=== PATIENT | male | born 1960 | race Caucasian/White ===

== ENCOUNTER 2020-01-14 08:48 | Outpatient (CLI) | payer MEDICARE, MEDICAID, SELFPAY ==
--- NOTE | ~2020-01-14 | CT_ITS ---
EXAMINATION: CTA chest DATE: 01/14/2020 09:26 INDICATION: Thoracic aortic aneurysm TECHNIQUE: Computed tomography (CT) of the chest was performed with 100 cc Omnipaque 350 intravenous contrast. Automated exposure control and iterative reconstruction technique were employed. Exam dose: 926.57 mGy-cm total exam DLP. COMPARISON: None FINDINGS: The ascending aorta measures up to approximately 4.3 cm diameter. The mid aortic arch measu res approximately 3.2 cm diameter. The descending thoracic aorta measures approximately 3 cm diameter . There is no evidence of thoracic or suprarenal abdominal aortic dissection. Left-sided pacemaker device with leads in the right atrium and right ventricle. Heart size is within normal range. No pericardial effusion. No pleural effusion. There are calcified left hilar nodes and calcified mediastinal nodes as well as calcified left lower lobe pulmonary granuloma and scattered hepatic and numerous splenic calcified granulomas consistent w ith old granulomatous disease. No hilar or mediastinal mass lesion or lymphadenopathy. No pulmonary infiltrate or consolidation or pulmonary mass lesion is evident. No suspicious osteolytic or osteoblastic lesions are noted. IMPRESSION: Thoracic aortic aneurysm, without evidence of dissection or rupture. Reviewed, dictated and finalized at [facility]. Reviewed, dictated and finalized at [facility]. IMPRESSION: Thoracic aortic aneurysm, without evidence of dissection or ruptur eLucy
[2020-01-14 09:15] LABS: Estimated Glomerular Filt Rate > 60
== END 2020-01-14 08:49 | disposition home or self-care (01) ==
PROVIDERS: PCP Student in an Organized Health Care Education/Training Program; Visit Provider Student in an Organized Health Care Education/Training Program
DX: I71.2 Thoracic aortic aneurysm, without rupture (principal)
CPT/HCPCS: 36415; 71275; Q9967

== ENCOUNTER 2020-03-09 12:26 | Emergency (ER) | payer MEDICARE, MEDICAID, SELFPAY ==
--- NOTE | ~2020-03-09 | CT_ITS ---
EXAMINATION: CTA brain carotid DATE: 03/09/2020 17:43 INDICATION: Dizziness and transient vision loss TECHNIQUE: Computed tomographic angiography (CTA) of the head was performed without and with 100 mL O mnipaque-350 intravenous contrast. CTA of the neck was performed with intravenous contrast. The dose- length product was 1883.54 mGy-cm. Maximum intensity projection and volume rendered 3D-reconstruction s were created by the technologist on a separate workstation. Automated exposure control and iterativ e reconstruction technique were employed. COMPARISON: None. FINDINGS: HEAD CTA: . There is no intracranial hemorrhage, acute infarction, or abnormal mass lesion. The vent ricles are normal. There is no abnormal mass effect or midline shift. The priest-white matter different iation is normal. The basal cisterns are patent. The orbits are normal. The paranasal sinuses, mastoi ds and calvarium are normal. There is no significant stenosis of the basilar artery or posterior cerebral arteries. There is no si gnificant stenosis of the intracranial internal carotid arteries or the anterior or middle cerebral a rteries. The anterior communicating artery and posterior communicating arteries are normal. There is no aneurysm. NECK CTA: There are no pathologically enlarged lymph nodes. There is a pacemaker of the left upper ch est wall. No abnormal enhancement is present after contrast administration. There is moderate cervica l spondylosis. A bovine aortic arch configuration is noted. There is 0% stenosis of the proximal right internal carotid artery relative to normal distal artery l umen diameter (NASCET criteria). There is 0% stenosis of the proximal left internal carotid artery re lative to normal distal artery lumen diameter. IMPRESSION: 1. No acute intracranial abnormality. Normal head CTA. 2. 0% stenosis of the proximal right internal carotid artery relative to normal distal artery lumen d iameter (NASCET criteria). 3. 0% stenosis of the proximal left internal carotid artery relative to normal distal artery lumen di ameter. Reviewed, dictated and finalized at location [facility]. IMPRESSION: 1. No acute intracranial abnormality. Normal head CTA. 2. 0% stenosis of the proximal right internal carotid artery relative to normal distal artery lumen diameter (NASCET criteria). 3. 0% stenosis of the proximal left internal carotid artery relative to normal distal artery lumen diameter.
--- NOTE | ~2020-03-09 | XR_ITS ---
EXAMINATION: XR chest 1V portable EXAM DATE: 03/09/2020 13:14 INDICATION: Dizziness, syncope. TECHNIQUE: Portable AP frontal chest x-ray was obtained. There is no prior study for comparison. FINDINGS: There is a dual lead pacemaker/AICD seen with leads projecting over the expected locations of the right atrial appendage and right ventricle. The lungs are clear. There are no pleural effusio ns. Cardiac silhouette is prominent but magnified on this AP technique. There is no pneumothorax s uspected. The bones and soft tissues are unremarkable. IMPRESSION: No acute cardiopulmonary findings. Reviewed, dictated and finalized at location [facility].
[2020-03-09 12:35] VITALS: BP 148/84; PULSE 59; RESP 20; TEMP 35.9; O2SAT 97
--- NOTE | 2020-03-09 12:47 | ECG_ITS ---
Measurements Intervals [place] Rate: 60 P: 95 OK: 238 QRS: -7 QRSD: 104 T: 32 QT: 420 QTc: 420 Interpretive Statements ELECTRONIC ATRIAL PACEMAKER BASELINE ARTIFACT- I, II, III, AVL, AVF ATYPICAL ECG Electronically Signed On 03-09-2020 16:14:58 CDT by Scott Burr D.O.
[2020-03-09 13:18] LABS: Basophils Percent Auto 0.3 % (0.2-1.2); Eosinophils Percent Auto 0.7 % (0-4.4); Hematocrit 41.3 % (42.0-52.0); Hemoglobin 13.9 g/dL (14.0-18.0); Immature Granulocyte Absolute 0.01 K/mm3 (0.00-0.031); Immature Granulocyte Percent A 0.2 % (0-0.5); Lymphocytes Absolute Auto 1.75 K/mm3 (0.9-3.2); Lymphocytes Percent Auto 30.3 % (18.3-44.2); Mean Corpuscular HGB Conc 33.7 g/dl (32-36); Mean Corpuscular Hemoglobin 33.5 pg (26-34); Mean Corpuscular Volume 99.5 fl (80-100); Mean Platelet Volume 9.5 fl (7.4-10.4); Monocytes Absolute Auto 0.4 K/mm3 (0.1-0.6); Monocytes Percent Auto 6.9 % (2.6-8.5); Neutrophils Absolute Auto 3.6 K/mm3 (1.3-6.7); Neutrophils Percent Auto 61.6 % (45.5-73.1); Platelet Count Result 168 k/mm3 (150-375); Red Blood Count 4.15 M/mm3 (4.6-6.20); Red Cell Distribution Width 12.8 % (11.5-14.5); White Blood Count 5.8 K/mm3 (4.5-10.0)
[2020-03-09 13:23] LABS: Add Urine Microscopic? NO; Appearance Urine Clear (Clear); Bilirubin Urine Negative (Negative); Blood Urine Negative (Negative); Color Urine Colorless (Yellow); Glucose Urine UA Negative (Negative); Ketones Urine Negative (Negative); Leukocyte Esterase Ur Negative LEU/UL (Negative); Nitrate Urine Negative (Negative); Protein Urine Negative (Negative); Urobilinogen Urine Negative mg/dL (<2.0)
[2020-03-09 13:24] LABS: Specific Grav Ur 1.004 (1.001-1.035)
[2020-03-09 13:31] LABS: Alanine Aminotransferase 19 U/L (4-50); Albumin Level 4.4 g/dL (3.5-5.1); Alkaline Phosphatase 46 U/L (38-126); Aspartate Amino Transferase 28 U/L (17-59); Bilirubin,Total 0.6 mg/dL (0.2-1.3); Blood Urea Nitrogen 9 mg/dL (9-20); Calcium 9.3 mg/dL (8.4-10.2); Carbon Dioxide 24 mmol/L (22-30); Chloride 104 mmol/L (98-107); Estimated CRCL calculation 112 ml/min; Estimated Glomerular Filt Rate > 60; Glucose 91 mg/dL (75-110); Potassium 4.4 mmol/L (3.4-5.0); Sodium 136 mmol/L (137-145)
--- NOTE | 2020-03-09 13:42 | ED.DIZZY ---
HPI - Dizziness General Chief Complaint: Dizziness Stated Complaint: near syncope/dizzy Time Seen by Provider: 03/09/20 12:43 Source: patient Mode of arrival: ambulatory Limitations: no limitations History of Present Illness HPI Narrative: This patient is a 59 year old male with h/o hyperlipidemia who presents for evaluation of lightheadeness. PAtient reports he has history of having episodes in which he feels like he is going to pass out. He had pacemaker placed 2 years ago but he has continued to have intermittent episodes. He states today he was walking in a store when he developed nausea, lightheadenss and blurry vision. He states his vision started going dark and he felt like he was going to pass out. He denies chest pain, sob, palpitations with this. He did not completely pass out today. His symptoms are almost completely resolved. He also denies focal weakness, headache or numbness. MD elicited complaint: near syncope Related Data Allergies Allergy/AdvReac Type Severity Reaction Status Date / Time morphine Allergy Unknown Verified 02/22/19 15:08 Review of Systems Review of Systems: All systems reviewed & are unremarkable except as noted in HPI and below Constitutional: Constitutional: Denies chills and Denies fever(s) ENT: Reports dizziness Cardiovascular: Cardiovascular: Denies chest pain, Denies rapid heart rate and Denies radiating jaw, neck or arm pain Respiratory: Respiratory: Denies cough, Denies dyspnea and Denies wheezing Neurologic: Reports dizziness, Denies syncope, Denies headache(s), Denies focal weakness and Denies numbness PMFSH Past Medical History Medical History (Updated 03/09/20 @ 18:29 by Adela Last MD) Hyperlipidemia Pacemaker Surgical History Surgical History (Updated 03/09/20 @ 13:44 by Adela Last MD) History of permanent cardiac pacemaker placement Social History Social History (Updated 03/09/20 @ 13:44 by Adela Last MD) Smoking status: Never smoker Exam Narrative: Exam Narrative: GENERAL: Well-appearing, well-nourished, and in no acute distress. HEAD: Normocephalic, atraumatic EYES: PERRLA and EOMI, conjunctiva clear without discharge EARS: TM's clear bilaterally without erythema or dullness NOSE: Nares clear, no rhinorrhea or epistaxis THROAT:Mucous membranes moist, Oropharynx normal without erythema, exudate, peritonsillar swelling or fluctuance, endutulous NECK: Supple, without lymphadenopathy or mass RESPIRATORY: No respiratory distress, Airway patent, Respirations non-labored, Clear to auscultation without rales, rhonchi or wheeze HEART: Regular rate and rhythm. No murmur heard. Normal peripheral pulses. ABDOMEN: Soft, nontender, nondistended, normal active bowel sounds. No masses. No rebound or guarding, No organomegaly. EXTREMITIES: No edema, normal strength with full range of motion. SKIN: Warm, dry, normal color without rash NEURO: Alert and oriented x3. CN 2-12 grossly intact. No focal deficits. PSYCH: Normal mood and affect. Course Reevaluation(s) Reevaluation #1: I have discussed with patient evaluation is unremarkable. He is asymptomatic now. His pacemaker was interrogated and it is functioning properly. He will follow up with PCP Date: 03/09/20 Time: 18:27 Vital Signs Vital signs: Vital Signs Temperature 96.7 F L 03/09/20 12:35 Pulse Rate 59 L 03/09/20 12:35 Respiratory Rate 20 03/09/20 12:35 Blood Pressure 148/84 H 03/09/20 12:35 Pulse Oximetry 97 03/09/20 12:35 Temperature 96.7 F L 03/09/20 12:35 Pulse Rate 74 03/09/20 18:48 Respiratory Rate 16 03/09/20 18:48 Blood Pressure 151/100 H 03/09/20 18:48 Pulse Oximetry 99 03/09/20 18:48 MDM - Dizziness Lab Data Attestation: I reviewed the patient's lab results. Result diagrams: 03/09/20 13:06 03/09/20 13:06 Labs: Lab Results 03/09/20 03/09/20 03/09/20 Range/Units 13:05 13:06 13:06 WBC
[2020-03-09 13:50] VITALS: BP 120/82; PULSE 61
[2020-03-09 13:52] VITALS: BP 126/90; PULSE 60
[2020-03-09 13:53] VITALS: BP 115/79; PULSE 73
[2020-03-09 13:54] LABS: Troponin I < 0.012 ng/mL (0.000-0.034)
--- NOTE | 2020-03-09 14:38 | PC.NURSE ---
[employer] called to check pacemaker
[2020-03-09 18:25] VITALS: BP 138/72; PULSE 78; RESP 18; O2SAT 99
[2020-03-09 18:48] VITALS: BP 151/100; PULSE 74; RESP 16; O2SAT 99
== END 2020-03-09 18:49 | disposition home or self-care (01) ==
PROVIDERS: Emergency Provider General Practice; PCP Student in an Organized Health Care Education/Training Program
DX: R55 Syncope and collapse (principal); E78.5 Hyperlipidemia, unspecified; Z95.0 Presence of cardiac pacemaker
CPT/HCPCS: 36415; 70496; 70498; 71045; 80053; 81003; 84484; 85025; 93005; 99284; Q9967

== ENCOUNTER 2020-09-30 08:45 | Outpatient (NON) | payer MEDICARE, MEDICAID, SELFPAY ==
[2020-09-30 18:05] LABS: SARS-CoV-2 RNA PCR Positive
== END 2020-09-30 08:46 ==
LOC: ANHCOVIDDT 08:49
PROVIDERS: Visit Provider Student in an Organized Health Care Education/Training Program
DX: U07.1 COVID-19 (principal)
CPT/HCPCS: 87635; C9803; U0003

== ENCOUNTER 2021-04-12 13:58 | Outpatient (CLI) | payer MEDICARE, MEDICAID, SELFPAY ==
--- NOTE | ~2021-04-12 | US_ITS ---
EXAMINATION: US carotid duplex BI DATE: 04/12/2021 14:54 INDICATION: Dizziness. TECHNIQUE: Grayscale, color Doppler, and pulsed Doppler images of the cervical carotid arteries were obtained. The degree of vessel stenosis is placed in one of the following categories: normal, <50%, 5 0-69%, >=70% but less than near-occlusion, near-occlusion, or total occlusion. Note that percent sten osis relative to normal distal artery lumen diameter is indirectly measured from velocity measurement s as described by Kory, et al. Radiology 2003; 229:340-346. COMPARISON: CTA 03/09/2020 FINDINGS: RIGHT: The right common carotid artery (CCA) peak systolic velocity (PSV) is 95 cm/s. The right internal car otid artery (ICA) PSV is 63 cm/s. The right ICA end-diastolic velocity (EDV) is 31 cm/s. The right IC A/CCA PSV ratio is 0.7. Grayscale and color Doppler images yield an estimate of 0% diameter reduction from plaque in the ICA. There is antegrade flow in the right vertebral artery. LEFT: The left CCA PSV is 97 cm/s. The left ICA PSV is 59 cm/s. The left ICA EDV is 28 cm/s. The left ICA/C CA PSV ratio is 0.6. Grayscale and color Doppler images yield an estimate of <50% diameter reduction from plaque in the ICA. There is antegrade flow in the left vertebral artery. IMPRESSION: 1. Normal right internal carotid artery. 2. <50% stenosis in the left internal carotid artery. Reviewed, dictated and finalized at location [facility].
--- NOTE | ~2021-04-12 | CT_ITS ---
EXAMINATION: CTA chest EXAM DATE: 04/12/2021 15:06 INDICATION: Thoracic aortic aneurysm follow-up. Chest pain. TECHNIQUE: Spiral CT of the chest following intravenous injection of 100 mL Omnipaque 350. Axial, co sharla and sagittal images of the chest were reviewed. Coronal maximum intensity pixel images of ches t reviewed. The dose-length product (DLP) for this examination was 951.57 mGy-cm. The exposure was tailored according to patient size (auto mA exposure control), and iterative reconstruction (ASIR) wa s used as additional dose reduction technique. Comparison is made to prior examination from 01/14/2020 . FINDINGS: The aortic root and ascending aorta measures 4.6 cm (previously 4.5), either stable or onur y minimally increased in size. There is mild interstitial lung disease, some subpleural banding, whic h has developed compared to prior study, with irregular septal thickening seen with peripheral bibasi lar predominance and areas of groundglass opacity. Appearance most consistent with Nonspecific Inters titial Pneumonitis Pattern (NSIP) interstitial lung disease with many possible underlying etiologies including collagen vascular disease, medications/drugs, prior viral infection (COVID-19), hypersensit ivity pneumonitis, idiopathic etiologies. There are no pleural or pericardial effusions. There is mild bronchiectasis. Tracheobronchial tree is patent. There is no mediastinal, hilar or axillary lymphadenopathy. There is no pneumothorax. Heart normal in size. No evidence of coronary arterial calcification. Upper abdomen is unremarkabl e. There is thoracic spondylosis without osteoblastic or osteolytic lesions identified. IMPRESSION: 1. Developing NSIP interstitial lung disease. 2. Ascending aortic aneurysm stable or very minimally increased in size. 3. Mild bronchiectasis. Reviewed, dictated and finalized at location [facility].
[2021-04-13 07:47] LABS: Estimated Glomerular Filt Rate > 60
== END 2021-04-12 13:59 | disposition home or self-care (01) ==
LOC: ANHIMG 14:05
PROVIDERS: PCP Student in an Organized Health Care Education/Training Program; Visit Provider Student in an Organized Health Care Education/Training Program
DX: I71.2 Thoracic aortic aneurysm, without rupture (principal); R42 Dizziness and giddiness; J84.9 Interstitial pulmonary disease, unspecified; J47.9 Bronchiectasis, uncomplicated; I65.22 Occlusion and stenosis of left carotid artery
CPT/HCPCS: 71275; 93880; Q9967

== ENCOUNTER 2022-08-10 08:46 | Outpatient (CLI) | payer MEDICARE, MEDICAID, SELFPAY ==
--- NOTE | ~2022-08-10 | CT_ITS ---
EXAMINATION: CTA chest DATE: 08/10/2022 09:19 INDICATION: Aortic aneurysm without rupture. TECHNIQUE: Computed tomographic angiography (CTA) of the chest was performed with 100 mL Omnipaque-35 0 intravenous contrast. Automated exposure control and iterative reconstruction technique were employ ed. The dose-length product was 1067.68 mGy-cm. Maximum intensity projection 3D-reconstructions of th e aorta and other arteries were constructed by the technologist on a separate workstation. COMPARISON: Chest CT 04/12/2021 FINDINGS: There is a pneumatocele in left lower lobe. There are peripheral groundglass opacities asso ciated with septal thickening and architectural distortion in all lobes. There is mild bronchiectasis in right lower lobe. No honeycombing. Calcified left lung nodules and calcified left hilar and media stinal lymph nodes are consistent with old granulomatous disease. No pleural effusion. There is right ventricular enlargement of the heart. No pericardial effusion. There is a left chest wall pacer with leads in the right atrium and right ventricle. Calcifications in the liver and spleen are consistent with old granulomatous disease. Thoracic aorta measures 4.7 cm at the sinuses of Valsalva, 3.7 cm at the sinotubular junction, 4.7 cm in the mid ascending aorta, 3.4 cm at the aortic isthmus, and 3.3 c m in the mid descending aorta. There is severe cervical spondylosis and mild thoracic spondylosis. IMPRESSION: 1. Ectasia of ascending aorta measuring up to 4.7 cm, not significantly changed from 04/12/21. 2. Chronic interstitial lung disease in a pattern of nonspecific interstitial pneumonia (NSIP), stabl e from 04/04/2021. Reviewed, dictated and finalized at location [facility]. IMPRESSION: 1. Ectasia of ascending aorta measuring up to 4.7 cm, not significantly changed from 04/12/21. 2. Chronic interstitial lung disease in a pattern of nonspecific interstitial p neumonia (NSIP), stable from 04/04/2021.
[2022-08-10 09:09] LABS: Estimated Glomerular Filt Rate > 60
== END 2022-08-10 08:47 | disposition home or self-care (01) ==
PROVIDERS: PCP Student in an Organized Health Care Education/Training Program; Visit Provider Student in an Organized Health Care Education/Training Program
DX: I71.40 Abdominal aortic aneurysm, without rupture, unspecified (principal); I77.811 Abdominal aortic ectasia; J84.9 Interstitial pulmonary disease, unspecified
CPT/HCPCS: 71275; Q9967

== ENCOUNTER 2024-06-28 13:15 | Outpatient (CLI) | payer MEDICARE, SELFPAY ==
--- NOTE | ~2024-06-28 | XR_ITS ---
EXAMINATION: XR lg joint inject/asp w image DATE: 06/28/2024 14:18 INDICATION: Left hip arthritis. TECHNIQUE: A time-out was performed to verify the patient's name, date of , and procedure to b e performed. The procedure including the risks, benefits, and alternatives was discussed with the pat ient. Risks discussed included bleeding and infection. The patient understood the risks and agreed to proceed. The skin overlying the left hip joint was prepped and draped in usual sterile fashion. An esthetic was administered with 1% lidocaine subcutaneously. A 22 G needle was advanced under fluoros copic guidance into the joint. Subsequently, injectate consisting of 2 mL 0.5% bupivacaine and 1 mL 80 mg/mL Depo-Medrol was instilled. The needle was removed and the entry site was cleaned and dresse d. There were no immediate complications. Fluoroscopy exposure time was 0.0 minutes. The total numbe r of images was 1. FINDINGS: Real-time fluoroscopy demonstrates the needle in the left hip joint. IMPRESSION: 1. Fluoroscopy guided left hip joint injection of local anesthetic and steroid. Reviewed, dictated and finalized at location A.
== END 2024-06-28 13:16 | disposition home or self-care (01) ==
PROVIDERS: PCP Student in an Organized Health Care Education/Training Program; Visit Provider Orthopaedic Surgery
DX: M16.12 Unilateral primary osteoarthritis, left hip (principal)
CPT/HCPCS: 20610; 77002; J1010

== ENCOUNTER 2024-11-29 13:51 | Outpatient (CLI) | payer MEDICARE, SELFPAY ==
--- NOTE | ~2024-11-29 | XR_ITS ---
EXAMINATION: XR lg joint inject/asp w image DATE: 11/29/2024 14:44 INDICATION: Left hip arthritis. TECHNIQUE: A time-out was performed to verify the patient's name, date of , and procedure to b e performed. The procedure including the risks, benefits, and alternatives was discussed with the pat ient. Risks discussed included bleeding and infection. The patient understood the risks and agreed to proceed. The skin overlying the left hip joint was prepped and draped in usual sterile fashion. An esthetic was administered with 1% lidocaine subcutaneously. A 22 G needle was advanced under fluoros copic guidance into the joint. Subsequently, injectate consisting of 2 mL 0.5% bupivacaine and 1 mL 80 mg/mL Depo-Medrol was instilled. The needle was removed and the entry site was cleaned and dresse d. There were no immediate complications. Fluoroscopy exposure time was 0.0 minutes. The total numbe r of images was 1. FINDINGS: Real-time fluoroscopy demonstrates the needle in the left hip joint. Patient's pain prior t o procedure:02/22. Patient's pain following the procedure: 11/25. IMPRESSION: 1. Fluoroscopy guided left hip joint injection of local anesthetic and steroid with decrease in the p atient's presenting pain. Reviewed, dictated and finalized at location A. L FURNITURE ASSEMBLER IMPRESSION: 1. Fluoroscopy guided left hip joint injection of local anesthetic and steroid with decrease in the patient's presenting pain.
--- OUTSIDE RECORDS SUMMARY | 2024-11-29 13:56 | XMS_ITS | Data Portability ---
Author Organization VANE YAMILETHAdonis Quintanilla Address [address] [place] [address] Assessment No assessment recorded. Plan of Treatment Reminders Order Date Submit Date Provider Last Modified By Organization Details Last Modified Time Details Appointments None recorded . Lab PSA, total, serum or plasma 2023 024 BRYAN LABMELA, [address] [place], [place] [address] [address], [address], [place], [address], 4 15:11:31 lipid panel, serum 2023 024 [facility], [address] [place], [place] [address] [address], [address], [place], [address], 4 15:11:26 CMP, serum or plasma 2023 024 [facility], [address] [place], [place] [address], [address], [place], [address], 4 15:11:27 CBC w/ auto diff 2023 024 [facility], [facility] [address], [address], [place], [address], 4 15:11:28 DEJA (antinuc lear antibodi es) screen, ifa, serum 2023 024 BR[facility]AN [facility], [address] [place], [place] [address], [address], [place], [address], 4 15:11:24 erythroc yte sediment ation rate by carlos en method 2023 024 BRYAN LY, [address], [address], [place], [address], 4 15:11:29 rf (rheumat oid factor), serum 2023 024 BRYAN LY, [address], [address], [place], [address], 4 15:11:30 sjogren antibody panel (ssa, ssb, ro, la), serum 2023 024 BRYAN LY, [address], [address], [place], [address], 4 15:11:32 dsDNA Ab, serum 2023 024 BRYAN LY, [address], [address], [place], [address], 4 15:11:33 CMP, serum or plasma 2017 018 BRYAN LY, [address], [address], [place], [address], 8 01:51:37 CBC w/ auto diff 2017 018 BRYAN LY, [address], [address], [place], [address], 8 06:17:20 CMP, serum or plasma 2017 018 BRYAN LY, [address], [address], [place], [address], 8 06:17:20 lipid panel, serum 2017 018 [facility], [address], [address], [place], [address], 8 06:17:21 CMP, serum or plasma 2016 017 [facility], [address], [address], [place], [address], 7 15:14:19 lipid panel, serum 2016 017 [facility], [address], [address], [place], [address], 7 15:14:20 HbA1c (hemoglo bin A1c), blood 2016 017 [facility], [address], [address], [place], [address], 7 15:14:21 unlisted lab - complian ce drug analysis , ur 2016 017 [facility], [address], [address], [place], [address], 7 15:14:18 TSH + free T4, serum 2016 017 [facility], [address], [address], [place], [address], 7 15:14:19 Referral orthoped ic surgeon referral 2023 024 [email or web address] Marino MD, [address], [address], [place], [address], 4 15:14:[address] referral 2023 024 zoraida Gomez MD, [address], [address], [place], [address], 4 14:35:17 pain manageme nt referral - please call patient to schedule appt. Thank you 2017 018 [email or web address] Matthew Rivas MD, [address] [facility], [address], [place], [address], 8 15:47:46 Procedures None recorded . Surgeries None recorded . Imaging XR, knee, 1 or 2 view - left 2023 024 [facility], [address], [address], [place], [address], 4 19:31:06 XR, hip, unilater al - left 2023 024 [facility], [address], [address], [place], [address], 4 19:32:01 cardiac stress test 2017 018 [facility] ([facility]), [address] [place], [address], 8 11:47:25 Medication Orders Medrol (Pedrito) 4 mg tablets in a dose pack 2023 024 [facility], [address] [place], [address], 4 10:52:34 Kenalog- 80 80 mg/mL suspensi on for injectio n 2023 024 [facility], [address] [place], [address], 4 17:51:22 Medrol (Pedrito) 4 mg tablets in a dose pack [email or web address] [facility], [address] [place], [address], 4 16:31:25 Kenalog- 80 80 mg/mL suspensi on for injectio n 2023 024 [facility], [address] [place], [address], 4 17:51:22 Benicar HCT 20 mg-12.5 mg tablet [address] [facility], [address], [place], [place], [id number], 8 11:07:11 metoprol ol succinat e ER 100 mg tablet,e xtended release 24 hr 2017 018 [facility], [address], [place], [place], [id number], 8 13:03:26 omeprazo le 40 mg capsule, delayed release [address] [facility], [address], [place], [place], [id number], 8 11:07:14 pravasta tin 20 mg tablet [address] [facility], [address], [place], [place], [id number], 8 11:06:33 pravasta tin 40 mg tablet 2016 017 [facility]10640, [address], [place], [place], [id number], 4 15:35:51 Patient TargetsNo targets recorded. Patient Instructions Encounter Date Encounter Id Patient Instructions Last Modified By Organization Details Last Modified Time 09/14/2017 [id number] learning about high blood sugar [facility] Not available 09/14/2017 12:27:04 When You Want to Lose Weight: Care Instructions [facility] Not available 09/14/2017 12:27:04 insulin resistance: care instructions [facility] Not available 09/14/2017 12:35:06 12/06/2017 [id number] cardiac perfusio n scan (medicine): about this test [facility] Not available 12/06/2017 16:23:35 When You Want to Lose Weight: Care Instructions [facility] Not available 12/06/2017 16:25:42 When You Want to Lose Weight: Care Instructions [facility] Not available 12/06/2017 16:25:43 03/25/2024 [id number] A healthy lifestyle: care instructions [email or web address] Not available 03/25/2024 16:31:25 Reason for Referral Pain Management Referral for Chronic low back pain please call patient to schedule appt. Thank you Referring Physician: Homero Godoy, Internal Medicine, Encounter Date: 12/06/2017 Accountant Certified Public Referral for Screening for malignant neoplasm of colon Referring Physician: Ray Flores [facility], Encounter Date: 03/25/2024 Orthopedic Surgeon Referral for Osteoarthritis of knee Referring Physician: Ray Flores [facility], Encounter Date: 03/25/2024 Results Created Date Observation Date Name Description Value Unit Range Abnormal Flag Note LastModifiedBy Organization Detail LastModifiedTime 09/14/20 17 09/19/2017 drug scree n, urine summary FINAL ===== ===== ===== ===== ===== ===== ===== ===== ===== ===== ===== ===== ===== === TOXAS SURE COMP DRUG GRANT SIS,U R ===== ===== ===== ===== ===== ===== ===== ===== ===== ===== ===== ===== ===== === Test Resul t Flag Units Drug Prese nt Picabo codon e 2833 ng/mg creat Picabo morph one 950 ng/mg creat Dihyd rocod eine 751 ng/mg creat Norhy droco done 2082 ng/mg creat Sourc es of hydro codon e inclu de sched uled presc ripti on medic ation s. Picabo morph one, dihyd rocod eine and norhy droco done are expec roxy metab olite s of hydro codon e. Picabo morph one and dihyd rocod eine are also avail able as sched uled presc ripti on medic ation s. Aceta minop hen PRESE NT Ibupr ofen PRESE NT ===== ===== ===== ===== ===== ===== ===== ===== ===== ===== ===== ===== ===== === Test Resul t Flag Units Ref Range Creat inine 164 mg/dL >=20 ===== ===== ===== ===== ===== ===== ===== ===== ===== ===== ===== ===== ===== === Decla red Medic ation s: Medic ation list was not provi ded. ===== ===== ===== ===== ===== ===== ===== ===== ===== ===== ===== ===== ===== === For clini ken consu ltati on, pleas e call . ===== ===== ===== ===== ===== ===== ===== ===== ===== ===== ===== ===== ===== === Not Available [facility] [address] [place] [address] D, [place], [address], 09/19/2017 15:14:18 09/14/20 17 09/19/2017 drug scree n, urine pdf . Not Available [facility] [address], [place], [address], 09/19/2017 15:14:18 09/14/20 17 09/15/2017 TSH + free T4, serum TSH TNP uIU/m L No speci men recei julia, pleas e resub josey. Not Available [facility] ([facility]) [address] [place], [address], 09/19/2017 15:14:19 09/14/20 17 09/15/2017 TSH + free T4, serum T4,free(dire ct) TNP Test not perfo rmed Not Available [facility] ([facility]) [address] [place], [address], 09/19/2017 15:14:19 09/14/20 17 09/15/2017 CMP, serum or plasm a glucose, serum TNP mg/dL No speci men recei julia, pleas e resub josey. Not Available [facility] ([facility]) [address] [place], [address], 09/19/2017 15:14:19 09/14/20 17 09/15/2017 CMP, serum or plasm a BUN TNP Test not perfo rmed Not Available [facility] ([facility]) [address] [place], [address], 09/19/2017 15:14:19 09/14/20 17 09/15/2017 CMP, serum or plasm a creatinine, serum TNP Test not perfo rmed Not Available [facility] ([facility]) [address] [place], [address], 09/19/2017 15:14:19 09/14/20 17 09/15/2017 CMP, serum or plasm a eGFR if nonafricn AM FUSING LINE INSPECTOR Not Available [facility] ([facility]) [address] [place], [address], 09/19/2017 15:14:19 09/14/20 17 09/15/2017 CMP, serum or plasm a eGFR if africn AM FUSING LINE INSPECTOR Not Available [facility]) [address] [place], [address], 09/19/2017 15:14:19 09/14/20 17 09/15/2017 CMP, serum or plasm a BUN/creatini ne ratio FUSING LINE INSPECTOR Not Available [facility] ([facility]) [address] [place], [address], 09/19/2017 15:14:19 09/14/20 17 09/15/2017 CMP, serum or plasm a sodium, serum TNP Test not perfo rmed Not Available [facility] ([facility]) [address] [facility], [place], [address], 09/19/2017 15:14:19 09/14/20 17 09/15/2017 CMP, serum or plasm a potassium, serum TNP Test not perfo rmed Not Available [facility] ([facility]) [address] [place] [address], [place], [address], 09/19/2017 15:14:19 09/14/20 17 09/15/2017 CMP, serum or plasm a chloride, serum TNP Test not perfo rmed Not Available [facility] ([facility]) [address] [place] [address], [address], 09/19/2017 15:14:19 09/14/20 17 09/15/2017 CMP, serum or plasm a carbon dioxide, total TNP Test not perfo rmed Not Available [facility] ([facility]) [address] [place], [address], 09/19/2017 15:14:19 09/14/20 17 09/15/2017 CMP, serum or plasm a calcium, serum TNP Test not perfo rmed Not Available [facility] ([facility]) [address] [place], [address], 09/19/2017 15:14:19 09/14/20 17 09/15/2017 CMP, serum or plasm a protein, total, serum TNP Test not perfo rmed Not Available [facility] ([facility]) [address] [place], [address], 09/19/2017 15:14:19 09/14/20 17 09/15/2017 CMP, serum or plasm a albumin, serum TNP Test not perfo rmed Not Available [facility] ([facility]) [address] [facility], [place], [address], 09/19/2017 15:14:19 09/14/20 17 09/15/2017 CMP, serum or plasm a globulin, total FUSING LINE INSPECTOR Not Available [facility] ([facility]) [address] [place], [address], 09/19/2017 15:14:19 09/14/20 17 09/15/2017 CMP, serum or plasm a A/G ratio FUSING LINE INSPECTOR Not Available [facility] ([facility]) [address] [place] [address], [place], [address], 09/19/2017 15:14:19 09/14/20 17 09/15/2017 CMP, serum or plasm a bilirubin, total TNP Test not perfo rmed Not Available [facility] ([facility]) [address] [place], [address], 09/19/2017 15:14:19 09/14/20 17 09/15/2017 CMP, serum or plasm a alkaline phosphatase, S TNP Test not perfo rmed Not Available [facility] ([facility]) [address] [place], [address], 09/19/2017 15:14:19 09/14/20 17 09/15/2017 CMP, serum or plasm a AST (SGOT) TNP Test not perfo rmed Not Available [facility] ([facility]) [address] [facility], [place], [address], 09/19/2017 15:14:19 09/14/20 17 09/15/2017 CMP, serum or plasm a ALT (SGPT) TNP Test not perfo rmed Not Available [facility] ([facility]) [address] [facility] [place], [address], 09/19/2017 15:14:19 09/14/20 17 09/15/2017 lipid panel , serum cholesterol, total TNP mg/dL No speci men recei julia, pleas e resub josey. Not Available [facility] ([facility]) [address] [facility], [place], [address], 09/19/2017 15:14:20 09/14/20 17 09/15/2017 lipid panel , serum triglyceride s TNP Test not perfo rmed Not Available [facility] ([facility]) [address] [facility] [place], [address], 09/19/2017 15:14:20 09/14/20 17 09/15/2017 lipid panel , serum HDL cholesterol TNP Test not perfo rmed Not Available [facility] ([facility]) [address] [facility] [place], [address], 09/19/2017 15:14:20 09/14/20 17 09/15/2017 lipid panel , serum VLDL cholesterol ken FUSING LINE INSPECTOR Not Available [facility] ([facility]) [address] [facility] [place], [address], 09/19/2017 15:14:20 09/14/20 17 09/15/2017 lipid panel , serum LDL cholesterol calc FUSING LINE INSPECTOR Not Available [facility] ([facility]) [address] [facility] [place], [address], 09/19/2017 15:14:20 09/14/20 17 09/15/2017 lipid panel , serum comment: FUSING LINE INSPECTOR Not Available [facility] ([facility]) [address] [facility], [place], [address], 09/19/2017 15:14:20 09/14/20 17 09/15/2017 lipid panel , serum LDL/HDL ratio FUSING LINE INSPECTOR Not Available [facility] ([facility]) [address] [facility], [place], [address], 09/19/2017 15:14:20 09/14/20 17 09/15/2017 HbA1c (hemo globi n A1c), blood hemoglobin A1C TNP % No speci men recei julialuther galindo e resub josey. Pre-d iabet es: 5.7 - 6.4 Diabe bin: >6.4 Glyce wilfred contr ol for adult s with diabe bin: <7.0 Not Available [facility] ([facility]) [address] [facility], [place], [address], 09/19/2017 15:14:21 09/14/20 17 09/15/2017 speci men statu s repor t specimen status report TNP No speci men recei julia, luther e resub josey. TEST: 87029 6 TSH+F ree T4 [address]646 0 Comp. Metab olic Panel (14) 67144 0 Lipid Panel With LDL/H DL Ratio 51168 3 Hemog lobin A1c Not Available [facility] ([facility]) [address] [facility], [place], [address], 09/19/2017 15:14:22 10/19/19 18 10/20/2017 TSH + free T4, serum TSH 2.260 uIU/m L 0.450- 4.500 Not Available [facility] ([facility]) [address] [facility], [place], [address], 10/20/2017 07:07:16 10/19/19 18 10/20/2017 TSH + free T4, serum T4,free(dire ct) 0.89 NG/dL 0.82-1 .77 Not Available [facility] ([facility]) [address] [place], [address], 10/20/2017 07:07:16 10/19/1910/20/2017 CMP, serum or plasm a glucose, serum 102 mg/dL 65-99 above high normal Not Available [facility] ([facility]) [address] [place], [address], 10/20/2017 07:07:16 10/19/1910/20/2017 CMP, serum or plasm a BUN 12 mg/dL 6-24 Not Available [facility] ([facility]) [address] [place], [address], 10/20/2017 07:07:16 10/19/1910/20/2017 CMP, serum or plasm a creatinine, serum 0.95 mg/dL 0.76-1 .27 Not Available [facility] ([facility]) [address] [facility] [place], [address], 10/20/2017 07:07:16 10/19/1910/20/2017 CMP, serum or plasm a eGFR if nonafricn AM 88 mL/mi n/1.7 3 >59 Not Available [facility] ([facility]) [address] [place], [address], 10/20/2017 07:07:16 10/19/1910/20/2017 CMP, serum or plasm a eGFR if africn AM 102 mL/mi n/1.7 3 >59 Not Available [facility] ([facility]) [address] [facility] [place], [address], 10/20/2017 07:07:16 10/19/1910/20/2017 CMP, serum or plasm a BUN/creatini ne ratio 13 9-20 Not Available [facility] [address] [facility] [place], [address], 10/20/2017 07:07:16 10/19/1910/20/2017 CMP, serum or plasm a sodium, serum 144 mmol/ L 134-14 4 Not Available [facility] ([facility]) [address] [place], [address], 10/20/2017 07:07:16 10/19/1910/20/2017 CMP, serum or plasm a potassium, serum 4.5 mmol/ L 3.5-5. 2 Not Available [facility] ([facility]) [address] [place] [address], [address], 10/20/2017 07:07:16 10/19/1910/20/2017 CMP, serum or plasm a chloride, serum 102 mmol/ L 96-106 Not Available [facility] ([facility]) [address] [place] [address], [address], 10/20/2017 07:07:16 10/19/1910/20/2017 CMP, serum or plasm a carbon dioxide, total 26 mmol/ L 18-29 Not Available [facility] ([facility]) [address] [place] [address], [address], 10/20/2017 07:07:16 10/19/1910/20/2017 CMP, serum or plasm a calcium, serum 10.1 mg/dL 8.7-10 .2 Not Available [facility] ([facility]) [address] [place] [address], [address], 10/20/2017 07:07:16 10/19/1910/20/2017 CMP, serum or plasm a protein, total, serum 7.4 g/dL 6.0-8. 5 Not Available [facility] ([facility]) [place], [address], 10/20/2017 07:07:16 10/19/1910/20/2017 CMP, serum or plasm a albumin, serum 4.3 g/dL 3.5-5. 5 Not Available [facility] ([facility]) [address] [place] [address] [place], [address], 10/20/2017 07:07:16 10/19/19 18 10/20/2017 CMP, serum or plasm a globulin, total 3.1 g/dL 1.5-4. 5 Not Available [facility] ([facility]) [address] [place], [address], 10/20/2017 07:07:16 10/19/1910/20/2017 CMP, serum or plasm a A/G ratio 1.4 1.2-2. 2 Not Available [facility] ([facility]) [address] [place], [address], 10/20/2017 07:07:16 10/19/1910/20/2017 CMP, serum or plasm a bilirubin, total 0.5 mg/dL 0.0-1. 2 Not Available [facility] ([facility]) [address] [facility] [place], [address], 10/20/2017 07:07:16 10/19/1910/20/2017 CMP, serum or plasm a alkaline phosphatase, S 64 IU/L 39-117 Not Available [facility]) [address] [facility] [place], [address], 10/20/2017 07:07:16 10/19/1910/20/2017 CMP, serum or plasm a AST (SGOT) 29 IU/L 0-40 Not Available [facility] ([facility]) [address] [facility] [place], [address], 10/20/2017 07:07:16 10/19/1910/20/2017 CMP, serum or plasm a ALT (SGPT) 32 IU/L 0-44 Not Available [facility] ([facility]) [address] [place], [address], 10/20/2017 07:07:16 10/19/1910/20/2017 lipid panel , serum cholesterol, total 206 mg/dL 100-19 9 above high normal Not Available [facility] ([facility]) [address] [facility], [place], [address], 10/20/2017 07:07:17 10/19/19 18 10/20/2017 lipid panel , serum triglyceride s 155 mg/dL 0-149 above high normal Not Available [facility] ([facility]) [address] [facility], [place], [address], 10/20/2017 07:07:17 10/19/19 18 10/20/2017 lipid panel , serum HDL cholesterol 30 mg/dL >39 below low normal Not Available [facility] ([facility]) [address] [place], [address], 10/20/2017 07:07:17 10/19/19 18 10/20/2017 lipid panel , serum VLDL cholesterol ken 31 mg/dL 5-40 Not Available [facility] ([facility]) [address] [facility], [place], [address], 10/20/2017 07:07:17 10/19/19 18 10/20/2017 lipid panel , serum LDL cholesterol calc 145 mg/dL 0-99 above high normal Not Available [facility] ([facility]) [address] [place], [address], 10/20/2017 07:07:17 10/19/19 18 10/20/2017 lipid panel , serum comment: FUSING LINE INSPECTOR Not Available [facility] ([facility]) [address] [facility], [place], [address], 10/20/2017 07:07:17 10/19/19 18 10/20/2017 lipid panel , serum LDL/HDL ratio 4.8 ratio _unit s 0.0-3. 6 above high normal LDL/H DL Ratio Men Women 1/2 Avg.R isk 1.0 1.5 Avg.R isk 3.6 3.2 2X Avg.R isk 6.2 5.0 3X Avg.R isk 8.0 6.1 Not Available [facility] ([facility]) [address] [place], [address], 10/20/2017 07:07:17 10/19/19 18 10/20/2017 HbA1c (hemo globi n A1c), blood hemoglobin A1C 5.5 % 4.8-5. 6 Pre-d iabet es: 5.7 - 6.4 Diabe bin: >6.4 Glyce wilfred contr ol for adult s with diabe bin: <7.0 Not Available [facility] ([facility]) [address] [place], [address], 10/20/2017 07:07:17 12/16/19 18 12/16/2017 CMP, serum or plasm a glucose, serum 93 mg/dL 65-99 Not Available [facility] ([facility]) [address] [place], [address], 12/16/2017 06:17:20 12/16/19 18 12/16/2017 CMP, serum or plasm a BUN 5 mg/dL 6-24 below low normal Not Available [facility] ([facility]) [address] [place], [address], 12/16/2017 06:17:20 12/16/19 18 12/16/2017 CMP, serum or plasm a creatinine, serum 0.91 mg/dL 0.76-1 .27 Not Available [facility] ([facility]) [address] [place], [address], 12/16/2017 06:17:20 12/16/19 18 12/16/2017 CMP, serum or plasm a eGFR if nonafricn AM 93 mL/mi n/1.7 3 >59 Not Available [facility] ([facility]) [address] [place], [address], 12/16/2017 06:17:20 12/16/19 18 12/16/2017 CMP, serum or plasm a eGFR if africn AM 107 mL/mi n/1.7 3 >59 Not Available [facility] ([facility]) [address] [facility] [place], [address], 12/16/2017 06:17:20 12/16/19 18 12/16/2017 CMP, serum or plasm a BUN/creatini ne ratio 5 9-20 below low normal Not Available [facility] ([facility]) [address] [facility] [place], [address], 12/16/2017 06:17:20 12/16/19 18 12/16/2017 CMP, serum or plasm a sodium, serum 143 mmol/ L 134-14 4 Not Available [facility] ([facility]) [address] [facility] [place], [address], 12/16/2017 06:17:20 12/16/19 18 12/16/2017 CMP, serum or plasm a potassium, serum 4.4 mmol/ L 3.5-5. 2 Not Available [facility] ([facility]) [address] [facility] [place], [address], 12/16/2017 06:17:20 12/16/19 18 12/16/2017 CMP, serum or plasm a chloride, serum 103 mmol/ L 96-106 Not Available [facility] ([facility]) [address] [facility] [place], [address], 12/16/2017 06:17:20 12/16/19 18 12/16/2017 CMP, serum or plasm a carbon dioxide, total 24 mmol/ L 18-29 Not Available [facility] ([facility]) [address] [facility] [place], [address], 12/16/2017 06:17:20 12/16/19 18 12/16/2017 CMP, serum or plasm a calcium, serum 9.8 mg/dL 8.7-10 .2 Not Available [facility] ([facility]) [address] [facility] [place], [address], 12/16/2017 06:17:20 12/16/19 18 12/16/2017 CMP, serum or plasm a protein, total, serum 7.1 g/dL 6.0-8. 5 Not Available [facility] ([facility]) [address] [facility] [place], [address], 12/16/2017 06:17:20 12/16/19 18 12/16/2017 CMP, serum or plasm a albumin, serum 3.9 g/dL 3.5-5. 5 Not Available [facility] ([facility]) [address] [facility] [place], [address], 12/16/2017 06:17:20 12/16/19 18 12/16/2017 CMP, serum or plasm a globulin, total 3.2 g/dL 1.5-4. 5 Not Available [facility] ([facility]) [address] [facility] [place], [address], 12/16/2017 06:17:20 12/16/19 18 12/16/2017 CMP, serum or plasm a A/G ratio 1.2 1.2-2. 2 Not Available [facility] ([facility]) [address] [facility] [place], [address], 12/16/2017 06:17:20 12/16/19 18 12/16/2017 CMP, serum or plasm a bilirubin, total 0.5 mg/dL 0.0-1. 2 Not Available [facility] ([facility]) [address] [facility] [place], [address], 12/16/2017 06:17:20 12/16/19 18 12/16/2017 CMP, serum or plasm a alkaline phosphatase, S 75 IU/L 39-117 Not Available [facility] ([facility]) [address] [facility] [place], [address], 12/16/2017 06:17:20 12/16/19 18 12/16/2017 CMP, serum or plasm a AST (SGOT) 102 IU/L 0-40 above high normal Not Available [facility] ([facility]) [address] [facility] [place], [address], 12/16/2017 06:17:20 12/16/19 18 12/16/2017 CMP, serum or plasm a ALT (SGPT) 82 IU/L 0-44 above high normal Not Available [facility] ([facility]) [address] [facility] [place], [address], 12/16/2017 06:17:20 12/16/19 18 12/16/2017 CBC w/ auto diff WBC 5.1 x10e3 /uL 3.4-10 .8 Not Available [facility] ([facility]) [address] [facility] [place], [address], 12/16/2017 06:17:20 12/16/19 18 12/16/2017 CBC w/ auto diff RBC 4.31 x10e6 /uL 4.14-5 .80 Not Available [facility] ([facility]) [address] [facility], [place], [address], 12/16/2017 06:17:20 12/16/19 18 12/16/2017 CBC w/ auto diff hemoglobin 14.3 g/dL 13.0-1 7.7 Not Available [facility] ([facility]) [address] [facility], [place], [address], 12/16/2017 06:17:20 12/16/19 18 12/16/2017 CBC w/ auto diff hematocrit 42.4 % 37.5-5 1.0 Not Available [facility] ([facility]) [address] [facility] [place], [address], 12/16/2017 06:17:20 12/16/19 18 12/16/2017 CBC w/ auto diff MCV 98 fL 79-97 above high normal Not Available [facility] ([facility]) [address] [facility] [place], [address], 12/16/2017 06:17:20 12/16/19 18 12/16/2017 CBC w/ auto diff MCH 33.2 pg 26.6-3 3.0 above high normal Not Available [facility] ([facility]) [address] [facility], [place], [address], 12/16/2017 06:17:20 12/16/19 18 12/16/2017 CBC w/ auto diff MCHC 33.7 g/dL 31.5-3 5.7 Not Available [facility] ([facility]) [address] [facility], [place], [address], 12/16/2017 06:17:20 12/16/19 18 12/16/2017 CBC w/ auto diff RDW 13.4 % 12.3-1 5.4 Not Available [facility] ([facility]) [address] [facility], [place], [address], 12/16/2017 06:17:20 12/16/19 18 12/16/2017 CBC w/ auto diff platelets 174 x10e3 /uL 150-37 9 Not Available [facility] ([facility]) [address] [facility], [place], [address], 12/16/2017 06:17:20 12/16/19 18 12/16/2017 CBC w/ auto diff neutrophils 41 % not estab. Not Available [facility] ([facility]) [address] [facility], [place], [address], 12/16/2017 06:17:20 12/16/19 18 12/16/2017 CBC w/ auto diff lymphs 48 % not estab. Not Available [facility] ([facility]) [address] [facility], [place], [address], 12/16/2017 06:17:20 12/16/19 18 12/16/2017 CBC w/ auto diff monocytes 9 % not estab. Not Available [facility] ([facility]) [address] [facility], [place], [address], 12/16/2017 06:17:20 12/16/19 18 12/16/2017 CBC w/ auto diff eos 2 % not estab. Not Available [facility] ([facility]) [address] [place], [address], 12/16/2017 06:17:20 12/16/19 18 12/16/2017 CBC w/ auto diff basos 0 % not estab. Not Available [facility] ([facility]) [address] [place], [address], 12/16/2017 06:17:20 12/16/19 18 12/16/2017 CBC w/ auto diff immature cells FUSING LINE INSPECTOR Not Available [facility] ([facility]) [address] [place], [address], 12/16/2017 06:17:20 12/16/19 18 12/16/2017 CBC w/ auto diff neutrophils (absolute) 2.1 x10e3 /uL 1.4-7. 0 Not Available [facility] ([facility]) [address] [place], [address], 12/16/2017 06:17:20 12/16/19 18 12/16/2017 CBC w/ auto diff lymphs (absolute) 2.4 x10e3 /uL 0.7-3. 1 Not Available [facility] ([facility]) [address] [place], [address], 12/16/2017 06:17:20 12/16/19 18 12/16/2017 CBC w/ auto diff monocytes(ab solute) 0.5 x10e3 /uL 0.1-0. 9 Not Available [facility] ([facility]) [address] [place], [address], 12/16/2017 06:17:20 12/16/19 18 12/16/2017 CBC w/ auto diff eos (absolute) 0.1 x10e3 /uL 0.0-0. 4 Not Available [facility] ([facility]) [address] [place], [address], 12/16/2017 06:17:20 12/16/19 18 12/16/2017 CBC w/ auto diff baso (absolute) 0.0 x10e3 /uL 0.0-0. 2 Not Available [facility] ([facility]) [address] [facility], [place], [address], 12/16/2017 06:17:20 12/16/19 18 12/16/2017 CBC w/ auto diff immature granulocytes 0 % not estab. Not Available [facility] ([facility]) [address] [facility] [place], [address], 12/16/2017 06:17:20 12/16/19 18 12/16/2017 CBC w/ auto diff immature grans (abs) 0.0 x10e3 /uL 0.0-0. 1 Not Available [facility] ([facility]) [address] [place], [address], 12/16/2017 06:17:20 12/16/19 18 12/16/2017 CBC w/ auto diff NRBC FUSING LINE INSPECTOR Not Available [facility] ([facility]) [address] [place], [address], 12/16/2017 06:17:20 12/16/19 18 12/16/2017 CBC w/ auto diff hematology comments: FUSING LINE INSPECTOR Not Available [facility] ([facility]) [address] [place], [address], 12/16/2017 06:17:20 12/16/19 18 12/16/2017 lipid panel , serum cholesterol, total 179 mg/dL 100-19 9 Not Available [facility] ([facility]) [address] [place], [address], 12/16/2017 06:17:21 12/16/19 18 12/16/2017 lipid panel , serum triglyceride s 215 mg/dL 0-149 above high normal Not Available [facility] ([facility]) [address] [place], [address], 12/16/2017 06:17:21 12/16/19 18 12/16/2017 lipid panel , serum HDL cholesterol 21 mg/dL >39 below low normal Not Available [facility] ([facility]) [address] [facility], [place], [address], 12/16/2017 06:17:21 12/16/19 18 12/16/2017 lipid panel , serum VLDL cholesterol ken 43 mg/dL 5-40 above high normal Not Available [facility] ([facility]) [address] [facility] [place], [address], 12/16/2017 06:17:21 12/16/19 18 12/16/2017 lipid panel , serum LDL cholesterol calc 115 mg/dL 0-99 above high normal Not Available [facility] ([facility]) [address] [place], [address], 12/16/2017 06:17:21 12/16/19 18 12/16/2017 lipid panel , serum comment: FUSING LINE INSPECTOR Not Available [facility] ([facility]) [address] [facility], [place], [address], 12/16/2017 06:17:21 12/16/19 18 12/16/2017 lipid panel , serum LDL/HDL ratio 5.5 ratio _unit s 0.0-3. 6 above high normal LDL/H DL Ratio Men Women 1/2 Avg.R isk 1.0 1.5 Avg.R isk 3.6 3.2 2X Avg.R isk 6.2 5.0 3X Avg.R isk 8.0 6.1 Not Available [facility] ([facility]) [address] [facility] [place], [address], 12/16/2017 06:17:21 03/25/20 24 03/27/2024 DEJA BY IFA RFX TITER /ANTONY ARNOLD DEJA by ifa rfx titer/patter n NEGATI VE Negat jannette <1:80 Borde rline 1:80 Posit jannette >1:80 ICAP nomen juila re: AC-0 For more infor sofya mohan about Hep-2 cell patte rns use ANAdanielle ttern s.org , the offic destiny abbasi for the Inter natio nal Conse nsus on Antin uclea r Antib alice (DEJA) Patte rns ([facility] ). Not Available [facility] ([facility]) [address] [place], [address], 03/27/2024 15:11:24 03/25/20 24 03/26/2024 LIPID PANEL cholesterol, total 133 mg/dL 100-19 9 Not Available [facility] ([facility]) [address] [place], [address], 03/27/2024 15:11:25 03/25/20 24 03/26/2024 LIPID PANEL triglyceride s 141 mg/dL 0-149 Not Available [facility] ([facility]) [address] [place], [address], 03/27/2024 15:11:25 03/25/20 24 03/26/2024 LIPID PANEL HDL cholesterol 34 mg/dL >39 below low normal Not Available [facility] ([facility]) [address] [place], [address], 03/27/2024 15:11:25 03/25/20 24 03/26/2024 LIPID PANEL VLDL cholesterol ken 25 mg/dL 5-40 Not Available [facility] ([facility]) [address] [place], [address], 03/27/2024 15:11:25 03/25/20 24 03/26/2024 LIPID PANEL LDL chol calc ([facility]) 74 mg/dL 0-99 Not Available [facility] ([facility]) [address] [place], [address], 03/27/2024 15:11:25 03/25/20 24 03/26/2024 COMP. METAB OLIC PANEL (14) glucose 90 mg/dL 70-99 Not Available [facility] ([facility]) [address] [facility] [place], [address], 03/27/2024 15:11:26 03/25/20 24 03/26/2024 COMP. METAB OLIC PANEL (14) BUN 9 mg/dL 8-27 Not Available [facility] ([facility]) [address] [facility] [place], [address], 03/27/2024 15:11:26 03/25/20 24 03/26/2024 COMP. METAB OLIC PANEL (14) creatinine 0.91 mg/dL 0.76-1 .27 Not Available [facility] ([facility]) [address] [facility] [place], [address], 03/27/2024 15:11:26 03/25/20 24 03/26/2024 COMP. METAB OLIC PANEL (14) eGFR 94 mL/mi n/1.7 3 >59 Not Available [facility] ([facility]) [address] [facility] [place], [address], 03/27/2024 15:11:26 03/25/20 24 03/26/2024 COMP. METAB OLIC PANEL (14) BUN/creatini ne ratio 10 10-24 Not Available [facility] ([facility]) [address] [facility] [place], [address], 03/27/2024 15:11:26 03/25/20 24 03/26/2024 COMP. METAB OLIC PANEL (14) sodium 140 mmol/ L 134-14 4 Not Available [facility] ([facility]) [address] [facility] [place], [address], 03/27/2024 15:11:26 03/25/20 24 03/26/2024 COMP. METAB OLIC PANEL (14) potassium 4.5 mmol/ L 3.5-5. 2 Not Available [facility] ([facility]) [address] [facility] [place], [address], 03/27/2024 15:11:26 03/25/20 24 03/26/2024 COMP. METAB OLIC PANEL (14) chloride 103 mmol/ L 96-106 Not Available [facility] ([facility]) [address] [facility], [place], [address], 03/27/2024 15:11:26 03/25/20 24 03/26/2024 COMP. METAB OLIC PANEL (14) carbon dioxide, total 23 mmol/ L 20-29 Not Available [facility] ([facility] [address] [facility] [place], [address], 03/27/2024 15:11:26 03/25/20 24 03/26/2024 COMP. METAB OLIC PANEL (14) calcium 9.1 mg/dL 8.6-10 .2 Not Available [facility] ([facility]) [address] [facility], [place], [address], 03/27/2024 15:11:26 03/25/20 24 03/26/2024 COMP. METAB OLIC PANEL (14) protein, total 6.7 g/dL 6.0-8. 5 Not Available [facility] ([facility]) [address] [facility], [place], [address], 03/27/2024 15:11:26 03/25/20 24 03/26/2024 COMP. METAB OLIC PANEL (14) albumin 4.1 g/dL 3.9-4. 9 Not Available [facility] ([facility]) [address] [facility] [place], [address], 03/27/2024 15:11:26 03/25/20 24 03/26/2024 COMP. METAB OLIC PANEL (14) globulin, total 2.6 g/dL 1.5-4. 5 Not Available [facility] ([facility]) [address] [facility] [place], [address], 03/27/2024 15:11:26 03/25/20 24 03/26/2024 COMP. METAB OLIC PANEL (14) A/G ratio 1.6 Not Available [facility] ([facility]) [address] [facility], [place], [address], 03/27/2024 15:11:26 03/25/20 24 03/26/2024 COMP. METAB OLIC PANEL (14) bilirubin, total 0.3 mg/dL 0.0-1. 2 Not Available [facility] ([facility]) [address] [facility], [place], [address], 03/27/2024 15:11:26 03/25/20 24 03/26/2024 COMP. METAB OLIC PANEL (14) alkaline phosphatase 64 IU/L 44-121 Not Available [facility] ([facility]) [address] [facility], [place], [address], 03/27/2024 15:11:26 03/25/20 24 03/26/2024 COMP. METAB OLIC PANEL (14) AST (SGOT) 18 IU/L 0-40 Not Available [facility] ([facility]) [address] [facility], [place], [address], 03/27/2024 15:11:26 03/25/20 24 03/26/2024 COMP. METAB OLIC PANEL (14) ALT (SGPT) 10 IU/L 0-44 Not Available [facility] ([facility]) [address] [facility], [place], [address], 03/27/2024 15:11:26 03/25/20 24 03/26/2024 CBC WITH DIFFE RENTI AL/PL ATELE T WBC 5.7 x10e3 /uL 3.4-10 .8 Not Available [facility] ([facility]) [address] [facility], [place], [address], 03/27/2024 15:11:28 03/25/20 24 03/26/2024 CBC WITH DIFFE RENTI AL/PL ATELE T RBC 4.12 x10e6 /uL 4.14-5 .80 below low normal Not Available [facility] ([facility]) [address] [place], [address], 03/27/2024 15:11:28 03/25/20 24 03/26/2024 CBC WITH DIFFE RENTI AL/PL ATELE T hemoglobin 13.2 g/dL 13.0-1 7.7 Not Available [facility] ([facility]) [address] [place], [address], 03/27/2024 15:11:28 03/25/20 24 03/26/2024 CBC WITH DIFFE RENTI AL/PL ATELE T hematocrit 40.4 % 37.5-5 1.0 Not Available [facility] ([facility]) [address] [place], [address], 03/27/2024 15:11:28 03/25/20 24 03/26/2024 CBC WITH DIFFE RENTI AL/PL ATELE T MCV 98 fL 79-97 above high normal Not Available [facility] ([facility]) [address] [place], [address], 03/27/2024 15:11:28 03/25/20 24 03/26/2024 CBC WITH DIFFE RENTI AL/PL ATELE T MCH 32.0 pg 26.6-3 3.0 Not Available [facility] ([facility]) [address] [place], [address], 03/27/2024 15:11:28 03/25/20 24 03/26/2024 CBC WITH DIFFE RENTI AL/PL ATELE T MCHC 32.7 g/dL 31.5-3 5.7 Not Available [facility] ([facility]) [address] [place], [address], 03/27/2024 15:11:28 03/25/20 24 03/26/2024 CBC WITH DIFFE RENTI AL/PL ATELE T RDW 12.2 % 11.6-1 5.4 Not Available [facility] ([facility]) [address] [facility], [place], [address], 03/27/2024 15:11:28 03/25/20 24 03/26/2024 CBC WITH DIFFE RENTI AL/PL ATELE T platelets 179 x10e3 /uL 150-45 0 Not Available [facility] ([facility]) [address] [facility], [place], [address], 03/27/2024 15:11:28 03/25/20 24 03/26/2024 CBC WITH DIFFE RENTI AL/PL ATELE T neutrophils 56 % notest ab. Not Available [facility] ([facility]) [address] [facility], [place], [address], 03/27/2024 15:11:28 03/25/20 24 03/26/2024 CBC WITH DIFFE RENTI AL/PL ATELE T lymphs 35 % notest ab. Not Available [facility] ([facility]) [address] [facility], [place], [address], 03/27/2024 15:11:28 03/25/20 24 03/26/2024 CBC WITH DIFFE RENTI AL/PL ATELE T monocytes 7 % notest ab. Not Available [facility] ([facility]) [address] [facility], [place], [address], 03/27/2024 15:11:28 03/25/20 24 03/26/2024 CBC WITH DIFFE RENTI AL/PL ATELE T eos 2 % notest ab. Not Available [facility] ([facility]) [address] [facility], [place], [address], 03/27/2024 15:11:28 03/25/20 24 03/26/2024 CBC WITH DIFFE RENTI AL/PL ATELE T basos 0 % notest ab. Not Available [facility] ([facility]) [address] [facility], [place], [address], 03/27/2024 15:11:28 03/25/20 24 03/26/2024 CBC WITH DIFFE RENTI AL/PL ATELE T neutrophils (absolute) 3.2 x10e3 /uL 1.4-7. 0 Not Available [facility] ([facility]) [address] [facility], [place], [address], 03/27/2024 15:11:28 03/25/20 24 03/26/2024 CBC WITH DIFFE RENTI AL/PL ATELE T lymphs (absolute) 2.0 x10e3 /uL 0.7-3. 1 Not Available [facility] ([facility]) [address] [facility], [place], [address], 03/27/2024 15:11:28 03/25/20 24 03/26/2024 CBC WITH DIFFE RENTI AL/PL ATELE T monocytes(ab solute) 0.4 x10e3 /uL 0.1-0. 9 Not Available [facility] ([facility]) [address] [facility], [place], [address], 03/27/2024 15:11:28 03/25/20 24 03/26/2024 CBC WITH DIFFE RENTI AL/PL ATELE T eos (absolute) 0.1 x10e3 /uL 0.0-0. 4 Not Available [facility] ([facility]) [address] [place], [address], 03/27/2024 15:11:28 03/25/20 24 03/26/2024 CBC WITH DIFFE RENTI AL/PL ATELE T baso (absolute) 0.0 x10e3 /uL 0.0-0. 2 Not Available [facility] ([facility]) [address] [facility], [place], [address], 03/27/2024 15:11:28 03/25/20 24 03/26/2024 CBC WITH DIFFE RENTI AL/PL ATELE T immature granulocytes 0 % notest ab. Not Available [facility] ([facility]) [address] [facility], [place], [address], 03/27/2024 15:11:28 03/25/20 24 03/26/2024 CBC WITH DIFFE RENTI AL/PL ATELE T immature grans (abs) 0.0 x10e3 /uL 0.0-0. 1 Not Available [facility] ([facility]) [address] [facility], [place], [address], 03/27/2024 15:11:28 03/25/20 24 03/26/2024 SEDIM ENTAT ION RATE- WESTE RGREN sedimentatio n rate-westerg julienne 23 mm/HR 0-30 Not Available [facility] ([facility]) [address] [facility], [place], [address], 03/27/2024 15:11:29 03/25/20 24 03/26/2024 RHEUM ATOID FACTO R (RF) rheumatoid factor (rf) <10.0 Not Available [facility] ([facility]) [address] [place], [address], 03/27/2024 15:11:30 03/25/20 24 03/26/2024 PROST ATE-S PECIF IC AG prostate specific Ag 0.1 NG/mL 0.0-4. 0 Ad ECLIA metho dolog y. Accor ding to the Ameri can [employer] g[employer] iatio n, Serum PSA shoul d decre ase and remai n at undet ectab le level s after radic al prost atect stephanie. The AUA defin es bioch emica l recur rence as an initi al PSA value 0.2 ng/mL or great er follo wed by a subse quent confi rmato ry PSA value 0.2 ng/mL or great er. Value s obtai kelsey with diffe rent assay metho ds or kits canno t be used inter barron eably . Resul ts canno t be inter prete d as absol leslee evide nce of the prese nce or absen ce of princess guthrie . Not Available [facility] ([facility]) [address] [facility], [place], [address], 03/27/2024 15:11:31 03/25/20 24 03/26/2024 SJOGR EN'S AB, ANTI- SS-A/ -SS-B sjogren's anti-ss-A <0.2 Not Available [facility] ([facility]) [address] [facility], [place], [address], 03/27/2024 15:11:32 03/25/20 24 03/26/2024 SJOGR EN'S AB, ANTI- SS-A/ -SS-B sjogren's anti-ss-B <0.2 Not Available [facility] ([facility]) [address] [facility], [place], [address], 03/27/2024 15:11:32 03/25/20 24 03/26/2024 ANTI- DSDNA ANTIB ODIES anti-DNA (ds) Ab qn 1 IU/mL 0-9 Negat jannette <5 Equiv ocal 5 - 9 Posit jannette >9 Not Available [facility] ([facility]) [address] [facility], [place], [address], 03/27/2024 15:11:33 12/21/19 18 12/20/2017 cardi ac stres s test No observ ation record ed. [facility] (Imaging) [address] [place], [address], 12/27/2017 16:55:05 02/28/20 18 02/26/2018 CT, head + brain , w/o contr ast No observ ation record ed. [facility] ([facility]) [address] [place], [address], 02/27/2018 11:55:04 02/28/20 18 02/26/2018 CT, cervi ken spine , w/o contr ast No observ ation record ed. [email or web address] Not Available 11:55:04 02/28/20 18 02/26/2018 CT, chest , w/ contr ast No observ ation record ed. [email or web address] [facility] (Imaging) [address] [place], [address], 02/27/2018 13:08:45 02/28/20 18 02/26/2018 CT, abdom en + pelvi s, w/ contr ast No observ ation record ed. [email or web address] Not Available 11:55:04 03/15/20 18 02/28/2018 elect erwin kumardave am inter preta tion* No observ ation record ed. [facility] [address], [place], [address], 03/15/2018 17:16:58 04/03/20 18 04/03/2018 XR, chest No observ ation record ed. [email or web address] (Imaging) [address] [place], [address], 04/04/2018 11:42:48 04/03/20 18 04/03/2018 XR, chest No observ ation record ed. [email or web address] (Imaging) [address] [place], [address], 04/04/2018 11:42:35 04/04/20 18 04/04/2018 XR, chest , 2 view No observ ation record ed. [facility] (Imaging) [address] [place], [address], 04/04/2018 12:25:58 04/11/20 18 04/11/2018 US, duple x, carot id arter y No observ ation record ed. [facility] [address], [place], [address], 04/12/2018 11:29:30 04/23/20 18 04/12/2018 sleep study , diagn ostic * No observ ation record ed. [facility] [address], [place], [address], 04/23/2018 16:14:29 05/16/20 18 05/03/2018 PFT, compl ete No observ ation record ed. [facility] [address], [place], [address], 05/16/2018 11:47:06 03/26/20 24 xr knee lt 2V [facility] [address] [facility] [place] [address] Examin ation: Left knee 2 views Access ion: [id number] Exam date/t kelechi: 3:48 PM Reason For Exam: osteoa rthrit is of knee Compar francoise: No previo us studie s. Techni que: AP and latera l views of the left knee were obtain ed. Findin gs: There is no malali gnment . There are mild degene rative change s in all the compar tments worse in the anteri or joint. Chondr ocalci nosis of mild degree . Calcif icatio ns sugges roxy superi mposed to the garden consultant ior aspect of the joint on the latera l view. No acute bony abnorm alitie s. Surrou nding soft tissue s of unrema rkable . =====I MPRESS ION:== === No acute bony abnorm alitie s. Degene rative change s with mild chondr ocalci nosis. Intra- articu lar calcif icatio n suspec roxy. ====== ====== ====== === Ordere d By: RAY Dwyer onical ly Signed By: Duc Holland MD on 6:27 PM Interp reted By: Duc Holland MD, 6:[address] PM [address], [place], [address], 03/27/2024 09:02:03 03/26/20 24 xr hip lt 2V [facility] [address] [facility] [place] [address] Examin ation: Left hip 2 views Access ion: [id number] Exam date/t kelechi: 3:48 PM Reason For Exam: pain left hip Compar francoise: No previo us. Techni que: AP and frog views of the left hip were obtain ed. Findin gs: There is no malali gnment . There are degene rative change s of mild-t o-mode rate degree . There may be femora l acetab ular imping ement. The pubic bone is intact . =====I MPRESS ION:== === No acute bony abnorm alitie s. Degene rative change s of mild-t o-mode rate degree and concer n for femora l acetab ular imping ement. ====== ====== ====== === Ordere d By: RAY FLORES [facility] ly Signed By: Duc Holland MD on 6:28 PM Interp reted By: Duc Holland MD, 6:28 PM [email or web address] [facility] [address] [facility], [place], [address], 03/27/2024 09:02:03 03/26/20 24 03/25/2024 XR, knee, 1 or 2 view No observ ation record ed. [facility] [address] [facility], [place], [address], 03/27/2024 09:02:04 03/26/20 24 03/25/2024 XR, hip, unila teral No observ ation record ed. [address] [place], [address], 03/27/2024 09:02:04 05/02/20 24 xr chest Pa or AP 1V [facility] [place] [address] EXAM: AP CHEST CLINIC AL STATEM ENT: check pacema ker and leads prior to MRI COMPAR FRANCOISE: TIME: 7:20 AM FINDIN GS: One uprigh t portab le AP view of the chest. There are no focal pulmon columb[place] opacit ies, pneumo thorac es or pleura l effusi ons. Degene rative osseou s struct ures. Dual lead left subcla vian pacema ker is intact . One lead projec ts at the ventri edwar and one at the [facility]ria. IMPRES MAGDI: Dual-l ead left superi or pacema ker intact . Referr ed By: Electr onical ly Signed By: Lasha Bennett MD on 7:27 AM Interp reted By: Lasha Bennett MD, 7:26 AM [email or web address] [facility] [address] [facility], [place], [address], 05/02/2024 18:06:42 05/02/20 24 MRI brain wwo con [facility] [place] [address] EXAMIN ATION: MRI brain with/w ithout contra st. ACCESS ION: [id number] EXAM DATE/T KELECHI: 10:47 AM REASON FOR EXAM: Mental status change , unknow n cause Interm ittent confus ion. Dizzin ess. COMPAR FRANCOISE: Brain MRI . Head CT . TECHNI QUE: Multip lanar, multis equenc e imagin g of the brain is obtain ed before and after uneven tful intrav enous admini strati on of 20 cc Dotare m. FINDIN GS: There is no abnorm al increa sed signal on diffus ion-we ighted imagin g to sugges t an acute infarc t. Ventri cles are enlarg ed with promin ent bilate ral sulci. Minima l scatte red FLAIR signal abnorm alitie s in the perive ntricu lar white matter . No eviden ce of intrac ranial hemorr stacia. Orbita l conten ts unrema rkable . Parana daina sinuse s and mastoi d air cells are clear. Visual ized portio n of paroti d glands unrema rkable . The visual ized major intrac ranial intrav ascula r flow voids at the skull base are intact . No eviden ce of mass, mass effect , or midlin e shift. Sella and supras ellar region s unrema rkable . No abnorm al signal in the visual ized cervic al cord on T1 imagin g. Follow ing contra st admini strati on there is no abnorm al enhanc ement in the brain or leptom eninge s. ====== ===== IMPRES MAGDI: ====== ===== 1. No acute intrac ranial abnorm alitie s. No MRI findin gs to explai n patien t's sympto ms. 2. Atroph y and small vessel ischem ic diseas e ====== ====== ====== ====== ====== ==== Referr ed By: Yuliya onical ly Signed By: See mckeon MD on 12:08 PM Interp reted By: See mckeon MD, 12:06 PM [email or web address] [facility] [address] [facility], [place], [address], 05/02/2024 18:06:43 Result Notes None recorded. Problems Name Problem SNOMED Code Status Onset Date Resolution Date Notes Provider Name and Address Organization Details Recorded Time Acid reflux 262521735 Active 2017 Homero Godoy MD Attn: Accountin g,[address] [facility], [place], [address], [place] [facility] 8 16:26:33 Benign prostatic hyperplasia without outflow obstruction 812812930 Active 2023 Ray Flores MD Attn: Sandip blandon,[address] [place], [address], [place] [facility] 4 16:05:58 Chronic obstructive pulmonary disease 88017706 Active 2023 Ray Flores MD Attn: Sandip blandon,[address] [place], [address], [place] [facility] 4 16:05:58 Hypercholester olemia 94374662 Active 2023 Ray Flores MD Attn: Sandip blandon,[address] [place], [address], [place] [facility] 4 16:05:59 Lumbago-sciati ca due to displacement of lumbar intervertebral disc 02871817 Active 2023 Ray Flores MD Attn: Sandip blandon,[address] [place], [address], [place] [facility] 4 16:06:00 Osteoarthritis of knee 397428772 Active 2023 Ray Flores MD Attn: Sandip blandon,[address] [place], [address], [place] [facility] 4 16:06:02 Osteoarthritis of hip 762840202 Active 2023 Ray Flores MD Attn: Sandip blandon,[address] [place], [address], [place] [facility] 4 16:06:03 Obesity 543492396 Active 2023 Ray Flores MD Attn: Sandip blandon,[address] [place], [address], [place] [facility] 4 16:06:04 Problem Notes None recorded. Procedures Surgical History Date Name Laterality Status Provider Name and Address Organization Details Recorded Time Heart Surgery completed SONAL Castro - [facility] 03/25/2024 16:37:00 Imaging Results Imaging Date Name Status LastModified by Organization Details LastModified Time 12/20/2017 cardiac stress test completed [facility] (Imaging) [address] [place], [address], 12/27/2017 16:55:05 02/26/2018 CT, head + brain, w/o contrast completed [facility] (Imaging) [address] [place], [address], 02/27/2018 11:55:04 02/26/2018 CT, cervical spine, w/o [facility] Information not available 02/27/2018 11:55:04 02/26/2018 CT, chest, w/ contrast completed [facility] (Imaging) [address] [place], [address], 02/27/2018 13:08:45 02/26/2018 CT, abdomen + pelvis, w/ contrast [facility] Information not available 02/27/2018 11:55:04 02/28/2018 electrocardiogram interpretation* completed [facility] [address], [place], [address], 03/15/2018 17:16:58 04/03/2018 XR, chest completed [address] (Imaging) [address] [place], [address], 04/04/2018 11:42:48 04/03/2018 XR, chest completed [address] (Imaging) [address] [place], [address], 04/04/2018 11:42:35 04/04/2018 XR, chest, 2 view completed [facility] (Imaging) [address] [place], [address], 04/04/2018 12:25:58 04/11/2018 US, duplex, carotid artery completed [facility] [address], [place], [address], 04/12/2018 11:29:30 04/12/2018 sleep study, diagnostic* completed [facility] [address], [place], [address], 04/23/2018 16:14:29 05/03/2018 PFT, complete completed [facility] [address], [place], [address], 05/16/2018 11:47:06 03/26/2024 xr knee lt 2V completed [address], [address], 03/27/2024 09:02:03 03/26/2024 xr hip lt 2V completed [address], [address], 03/27/2024 09:02:03 03/25/2024 XR, knee, 1 or 2 view completed [address], [address], 03/27/2024 09:02:04 03/25/2024 XR, hip, unilateral completed [address], [address], 03/27/2024 09:02:04 05/02/2024 xr chest Pa or AP 1V completed [address], [address], 05/02/2024 18:06:42 05/02/2024 MRI brain wwo con completed [email or web address] [address] [facility], [place], [address], 05/02/2024 18:06:43 Procedure Notes None recorded. Medical Equipment None Reported. Allergies Allergen ID Allergen Name Allergen Category Reaction Reaction Severity Criticality Documentation Date Start Date Code Code System Note Provider Name and Address Organization Details Recorded Time 423548 morphine medicatio n Not available Not available Not available 09/14/2017 7052 RxNorm Not Available Not Available Not Available Medications Name Sig Start Date Stop Date Status Note LastModified by Organization Details LastModified Time cyclobenzap rine 10 mg tablet 03/05 completed Not Available Not Available Not Available amoxicillin 500 mg capsule 03/05 completed Not Available Not Available Not Available fluconazole 100 mg tablet 03/05 completed Not Available Not Available Not Available metformin 500 mg tablet Take 1 tablet twice a day by oral route. 12/06 completed Not Available Not Available Not Available tizanidine 2 mg tablet TAKE 1 TABLET BY MOUTH EVERY 8 HOURS NEEDED active Not Available Not Available No t Available pravastatin 40 mg tablet Take 1 tablet every day by oral route at dinner for 30 days. 03/25 completed Not Available Not Available Not Available prednisone 20 mg tablet TAKE 3 TABS BY MOUTH DAILY X3DAYS, 2TABS DAILY X3DAYS, 1TAB DAILY X3DAYS 03/25 completed Not Available Not Available Not Available metoprolol succinate ER 100 mg tablet,exte nded release 24 hr Take 1 tablet every day by oral route for 90 days. 12/11 completed Not Available Not Available Not Available hydrocodone 10 mg-acetamin ophen 325 mg tablet TAKE 1 TABLET BY MOUTH EVERY 8 HOURS NEEDED FOR PAIN active Not Available Not Available No t Available omeprazole 40 mg capsule,del ayed release Take 1 capsule every day by oral route before meals for 90 days. 03/05 completed Not Available Not Available Not Available sildenafil 100 mg tablet TAKE 1/2 TO 1 (ONE-HALF TO ONE) TABLET BY MOUTH ONCE DAILY NEEDED FOR ERECTILE DYSFUNCTI ON active Not Available Not Available No t Available meloxicam 7.5 mg tablet 03/05 completed Not Available Not Available Not Available pravastatin 80 mg tablet TAKE 1 TABLET BY MOUTH ONCE DAILY active Not Available Not Available No t Available methocarbam ol 750 mg tablet Take by oral route. 03/05 completed Not Available Not Available Not Available cephalexin 500 mg capsule 03/25 completed Not Available Not Available Not Available cyanocobala min (vit B-12) 1,000 mcg/mL injection solution INJECT 1ML INTO THE MUSCLE ONCE FOR ONE DOSE. active Not Available Not Available No t Available lidocaine 5 % topical patch USE 1 PATCH EXTERNALL Y ONCE DAILY. LEAVE ON FOR 12 HOURS AND THEN OFF FOR 12 HOURS active Not Available Not Available No t Available aspirin 81 mg chewable tablet CHEW AND SWALLOW 1 TABLET BY MOUTH ONCE DAILY active Not Available Not Available No t Available pravastatin 20 mg tablet Take 1 tablet every day by oral route for 90 days. 03/05 completed Not Available Not Available Not Available methylpredn isolone 4 mg tablets in a dose pack TAKE BY MOUTH DIRECTED ON INSIDE OF PACKAGE active Not Available Not Available No t Available albuterol sulfate HFA 90 mcg/actuati on aerosol inhaler INHALE 2 PUFFS BY MOUTH EVERY 6 HOURS NEEDED FOR WHEEZING active Not Available Not Available No t Available losartan 100 mg tablet Take 1 tablet every day by oral route as directed for 30 days. 12/11 completed Not Available Not Available Not Available metformin ER 500 mg tablet,exte nded release 24 hr TAKE 1 TABLET BY MOUTH EVERY EVENING WITH MEAL 03/25 completed Not Available Not Available Not Available diazepam 5 mg tablet 03/05 completed Not Available Not Available Not Available ezetimibe 10 mg tablet TAKE 1 TABLET BY MOUTH ONCE DAILY active Not Available Not Available No t Available olmesartan 20 mg-hydrochl orothiazide 12.5 mg tablet TAKE 1 TABLET BY MOUTH EVERY DAY 03/05 completed Not Available Not Available Not Available Klor-Con M10 mEq tablet,exte nded release TAKE 1 TABLET BY MOUTH EVERY DAY 04/24 completed Not Available Not Available Not Available tadalafil 10 mg tablet TAKE 1 TABLET BY MOUTH ONCE DAILY NEEDED FOR ERECTILE DYSFUNCTI ON 03/25 completed Not Available Not Available Not Available tadalafil 20 mg tablet TAKE 1 TABLET BY MOUTH ONCE DAILY NEEDED FOR ERECTILE DYSFUNCTI ON active Not Available Not Available No t Available pregabalin 75 mg capsule TAKE 1 CAPSULE BY MOUTH TWICE A DAY NEEDED FOR PAIN 03/25 completed Not Available Not Available Not Available Breo Ellipta 100 mcg-25 mcg/dose powder for inhalation TAKE 1 PUFF BY MOUTH EVERY DAY active Not Available Not Available No t Available Kenalog-80 80 mg/mL suspension for injection Take 80 mg by injection route for 1 day. 05/03 completed Not Available Not Available Not Available Vitals Date Recorded Body height Body mass index (BMI) Body weight Body temperature Oxygen saturation Oxygen saturation in Arterial blood by Pulse oximetry Heart rate Systolic blood pressure Diastolic blood pressure Provider Name and Address Organization Details Last Updated DateTime 7 179.71 cm 43.8 kg/m2 264092. 1 g 97.8 [degF] 96 % 96 % 63 /min 118 mm[Hg] 86 mm[Hg] Maxi Chávez [place] - [facility] 7 11:41:03 Date Recorded Body height Body mass index (BMI) Body weight Body temperature Oxygen saturation Oxygen saturation in Arterial blood by Pulse oximetry Heart rate Systolic blood pressure Diastolic blood pressure Provider Name and Address Organization Details Last Updated DateTime 8 179.71 cm 42.4 kg/m2 953710. 33 g 98.1 [degF] 97 % 97 % 69 /min 114 mm[Hg] 76 mm[Hg] Maxi Chávez [place] - [facility] 8 15:41:27 Date Recorded Body height Body mass index (BMI) Body weight Body temperature Oxygen saturation Oxygen saturation in Arterial blood by Pulse oximetry Heart rate Systolic blood pressure Diastolic blood pressure Provider Name and Address Organization Details Last Updated DateTime 8 179.71 cm 42.4 kg/m2 114669. 9 g 97.9 [degF] 98 % 98 % 64 /min 110 mm[Hg] 82 mm[Hg] Maxi Chávez [place] - [facility] 8 11:10:53 Date Recorded Body weight Body mass index (BMI) Body height Oxygen saturation Oxygen saturation in Arterial blood by Pulse oximetry Heart rate Body temperature Systolic blood pressure Diastolic blood pressure Provider Name and Address Organization Details Last Updated DateTime 4 227053. 86 g 39.3 kg/m2 179.71 cm 98 % 98 % 60 /min 98.1 [degF] 116 mm[Hg] 70 mm[Hg] Tata Singh [place] - [facility] 4 15:38:19 Date Recorded Body height Body mass index (BMI) Body weight Body temperature Oxygen saturation Oxygen saturation in Arterial blood by Pulse oximetry Heart rate Systolic blood pressure Diastolic blood pressure Provider Name and Address Organization Details Last Updated DateTime 4 179.71 cm 38.9 kg/m2 753789. 09 g 98.1 [degF] 96 % 96 % 68 /min 120 mm[Hg] 70 mm[Hg] Tata Singh MA [facility] 4 10:37:20 Social History Question Answer Notes LastModified by Organizat ion Details LastModified Time Tobacco Smoking Status Never Smoker Maxi Chávez MA [facility], [facility] 09/14/2017 11:34:00 What Is Your Level Of Alcohol Consumption? None Former Drinker [email or web address] Information not available 09/14/2017 What Was The Date Of Your Most Recent Tobacco Screening? 04/24/2024 [email or web address] Information not available 04/24/2024 Sex: Unknown Functional Status None recorded. Mental Status None recorded. Family History Relationship Description Onset Age of this Age Resolved Age Notes LastModified by Organization Details LastModified Time Mother Heart disease [email or web address] Not available 09/14 11:33:54 Medical History Condition Response Coronary Artery Disease N Other N Atrial Fibrillation N High Blood Pressure N Depression N COPD Y Blood Clots N Anxiety Disorder N Muscle, Joint, or Bone Problems N Arthritis N Acid Reflux (GERD) N Cancer N Stroke N Headaches N Kidney or Bladder Problems N Eating Disorder N Skin Problems N Asthma N Allergies N Substance Abuse N Hepatitis N ADHD N High Cholesterol N Liver Disease N Schizophrenia N Thyroid Problems N GI Problems N Anemia N Heart Attack ([place]) N Diabetes Y Seizures/Epilepsy N Heart Failure N Osteoporosis N Past Encounters Encounter ID Performer Location Encounter Start Date Encounter Closed Date Diagnosis/Indication Diagnosis SNOMED-CT Code Diagnosis ICD10 Code Diagnosis Note [id number] MD Sherry Butts (Adult Med) [address] [place] [address] 09/14/2017 11:04:09 09/14/2017 12:34:02 Morbid obesity 960103248 E66.01 Diet, exercise and lose weight. Hyperglycemia 05198314 R 73.9 Diabetic diet, exercise and los weight. Shoulder joint pain 2679 15542 M25.519 Under the care of the pain management . Chronic neck pain 001869 0373 107 M54.2 Under the care of management . Dyslipidemia 010346639 E 78.5 Low saturated fat diet. exercise , keep the weight down. Metabolic syndrome X 237 558688 E88.81 History of elevated blood sugar, dyslipidem ia and morbid obesity. recommend exercise , diet program and lose weight. [id number] MD Sherry Butts (Adult Med) [address] [place] [address] 12/06/2017 14:12:29 12/06/2017 16:30:43 Non-allergic anaphylaxis 49684399 T78.2XXA Had bad reaction at his dentis office. Recovered, and procedure was terminated .Will order the cardiac work up. Morbid obesity 125113389 E66.01 Diet, exercise and lose weight. Hypertensive disorder 38 823045 I10 Computer's error. Hyperlipidemia 65569482 E78.5 computer's error. Acid reflux 914417466 K2 1.9 Computer's error. Chronic low back pain 27 4437156 M54.5 Computer's error. Adult heal th examination 110176869 Z00.01 Obesity, which has been adressed in the above. [id number] Ray Flores MD [facility] [address] [facility] [address] [place] [address] 03/25/2024 15:21:00 03/26/2024 10:04:10 Obesity 490088907 E66.8 condition chronic and not at goal start low fate diet. 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 order connective tissue panel Hypercholesterolemia 136 21321 E78.00 conditon chroinc and at goal continue the pravastati n and zetia order lipid panel, cmp Chronic ob structive pulmonary disease 45379212 J44.9 condition chronic and at goal continue the breo and follow [facility] pulmonary order cbc Benign pro static hyperplasia without outflow obstruction 252284641 N40.0 conditon chronic and at goal continue the cialis order psa Screening for malignant neoplasm of colon 260618217 Z12.11 dr eller [id number] Ray Flores MD [facility] [address] [place] [address] 04/24/2024 10:31:59 04/25/2024 10:08:58 Lumbago-sciatica due to displacement of lumbar intervertebral disc 24916724 M51.17 conditoin chronic with left L4 radiculopa thy continue the nsaids. kenalog 80 mg, medrol dose pack Hypercholesterolemia 136 15864 E78.00 conditon chroinc and at goal continue the pravastati n and zetia Benign pro static hyperplasia without outflow obstruction 646578757 N40.0 conditon chronic and at goal continue the cialis Chronic ob structive pulmonary disease 79282070 J44.9 condition chronic and at goal continue the breo and follow [facility] pulmonary Obesity 580773092 E66.8 condition chronic and not at goal start low fat diet. Osteoarthritis of hip 23 3150534 M16.9 left hip condition chronic and not at goal refer to dr marino Osteoarthr itis of knee 846183137 M17.9 condition chronic and not at goal refer to dr jordan Health Concerns Section Related Observation LastModified by Organization Detai ls LastModified Time None Recorded Concern Status LastModified by Organization Details LastModified Time None Recorded Advance Directives Directive None Recorded Payers Encounter Date Sequence Insurance Name Policy Number Policy Ortiz Covered Member ID Ortiz Member ID Guarantor Name 09/14/2017 1 [facility] PRIOR TO 04/15/2021 (MEDICAID REPLACEMENT - HMO) Steve Joy [id number] Steve Joy 12/06/2017 1 [facility] PRIOR TO 04/15/2021 (MEDICAID REPLACEMENT - HMO) Steve Joy [id number] [facility] 03/25/2024 1 [employer] (MEDICARE REPLACEMENT/AD VANTAGE - HMO) [id number] Steve Joy [id number] [facility] [place] 04/24/2024 1 [employer] (MEDICARE REPLACEMENT/AD VANTAGE - HMO) [id number] Steve Joy [id number] [facility] Notes Date Note Type Note Provider Name and Address Organization Details Recorded Time 09/14/2017 text/html First time, on metformin at night for boardline elevated blood sugar , 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 Girl friend [place]. Joy Ricci is here. History of chronic both shoulders pain. Disabled from deteriorating neck and shoulders condition, no surgeon would proceed the intervention according to his statement. Homero Godoy MD Attn: [address] [place], [address], [facility] 09/20/2017 12:42:31 12/06/2017 text/html He went to see a dentist, lulu farah: while pulling teeth on the ., allergic morphine. not a smoker nor a drinker. On no medication for months after his doctor left the area. Homero Godoy MD Attn: [address] [place], [address], [facility] 12/06/2017 16:33:16 03/25/2024 text/html presents to the office for initial evaluation states that he has been having left knee, thigh nad groin pain for the past 6 months. achy feeling. has gerd has chroicn lumbar back pain elevated chol and copd - sees pulmonary has ed lumbar back pain chronic has cad Ray Flores MD Attn: [address] [place], [address], [facility] 03/25/2024 20:01:23 04/24/2024 text/html states that he continues to have the lumbar back pain with the hip and knee pian the gerd is unde contrl adn the bph is under contorl the copd is under control the chol is under control has been watching his diet. colo is utd. Rya Flores MD Attn: [address] [facility], [place], [address], [facility] 04/24/2024 18:22:40
--- OUTSIDE RECORDS SUMMARY | 2024-11-29 13:56 | XMS_ITS | Patient Health Record ---
Author Organization [facility] Address [address] [place] [address] Care Team Providers Care Software Asset Management Analyst Name Role Phone Renan Lopez Primary Care Provider [phone] Reason For Referral No Information Immunizations Vaccine Route Administration Date Status Comme nts COVID-19 Moderna 2nd IM Intramuscular 02/18/2021 Administe red COVID-19 Moderna 1ST IM Intramuscular 01/21/2021 Administe rosette Plan Of Treatment No Information
--- OUTSIDE RECORDS SUMMARY | 2024-11-29 13:57 | XMS_ITS | Clinical Summary ---
Author Organization [facility] Address [facility] [place] [address] Care Team Providers Care Oil Rig Driller Name Role Phone Dwaine Gaitan MD Unavailable [phone] Chan Chao DO Primary Care Provider + Allergies No known active allergies Medications fluticasone furoate-vilanter ol (BREO ELLIPTA) 100-25 MCG/ACT inhalerIndicatio ns:Granulomatous lung disease ([facility]),Pulmona ry emphysema, unspecified emphysema type ([facility]) Inhale 1 puff into the lungs daily. 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 90 tablet 3 024 Active lidocaine (LIDODERM) 5 %Indications:Lum bar radiculopathy Place 1 patch onto the skin daily. Remove & Discard patch within 12 hours or as directed by 30 patch 1 024 Active Additional Information Patient taking differently:1 patch TransdermalDaily as needed, pain, Remove & Discard patch within 12 hours or as directed by , Reported on 11/07/2024 Spacer/Aero-Hold ing Chambers DeviceIndication s:Pulmonary emphysema, unspecified emphysema type ([facility] HHS/HCC) Use with inhaler as prescribed. 1 each 024 Active albuterol sulfate HFA 108 (90 Base) MCG/ACT inhalerIndicatio ns:Pulmonary emphysema, unspecified emphysema type (CMS/HCC HHS/HCC),Granulo matous lung disease (CMS/HCC HHS/HCC) Inhale 2 puffs into the lungs every 6 (six) hours as needed for Wheezing. 18 g 2 024 Active tiZANidine (ZANAFLEX) 2 MG tabletIndication s:Acute pain of left shoulder,Arthrit is of left hip Take 1 tablet (2 mg total) by mouth every 8 (eight) hours as needed. 30 tablet 2 024 Active pravastatin (PRAVACHOL) 80 MG tabletIndication s:Dyslipidemia,H ypercholesterole janneth TAKE 1 TABLET BY MOUTH EVERY DAY 90 tablet 024 Active tadalafil (CIALIS) 20 MG tabletIndication s:Erectile dysfunction of nonorganic origin Take 1 tablet (20 mg total) by mouth daily as needed for Erectile Dysfunction. 10 tablet 2 024 Active HYDROcodone-acet aminophen (NORCO) 10-325 MG tabletIndication s:Chronic Pain Take 1 tablet by mouth every 8 (eight) hours as needed for Pain. Indications: Chronic Pain 90 tablet 025 Active pregabalin (LYRICA) 75 MG capsuleIndicatio ns:Lumbar radiculopathy Take 1 capsule (75 mg total) by mouth 2 (two) times daily as needed (Pain). 60 capsule 2 024 2024 Discontin ued(Alter anant therapy) ezetimibe (ZETIA) 10 MG tabletIndication s:Dyslipidemia,H ypercholesterole janneth Take 1 tablet (10 mg total) by mouth daily. 90 tablet 1 024 2024 Discontin ued(Alter anant therapy) doxycycline hyclate (VIBRAMYCIN) 100 MG capsuleIndicatio ns:Upper respiratory tract infection, unspecified type Take 1 capsule (100 mg total) by mouth 2 (two) times daily for 10 days. 20 capsule 025 2024 HYDROcodone-acet aminophen (NORCO) 10-325 MG tabletIndication s:Chronic Pain Take 1 tablet by mouth every 8 (eight) hours as needed for Pain. Indications: Chronic Pain 90 tablet 025 2024 Discontin ued(ord er) Hospital, Clinic, or Other Facility Administered Medication Ordered Dose Route Frequency Start Date End Date Status cyanocobalamin (B-12) injection 1,000 mcgIndications:B12 deficiency 1000 mcg IM Once 11/07/2024 11/07/2024 Ended Active Problems Problem Noted Date Diagnosed Date Confusion 05/01/2024 Nonrheumatic aortic valve insufficiency 02/15/20 Chronic heart failure with p reserved ejection fraction ([facility]) 09/07/2022 Small vessel disease 05/05/2021 Near syncope 09/25/2019 HCV antibody positive 09/25/2019 SSS (sick sinus syndrome) ([facility]) 07/18 Thoracic aortic aneurysm 02/23/2019 Syncope, unspecified syncope type 02/23/2019 Bradycardia 12/03/2018 Fatty liver 11/07/2018 Granulomatous lung disease ([facility]) Left ventricular hypertrophy 11/07/2018 Pulmonary emphysema ([facility]) 11/07/2018 Vitamin B12 deficiency 11/07/2018 Chronic hepatitis C without hepatic coma ([facility]) 03/21/2018 Family history of heart disease 03/21/2018 Overview (11/11/2020): MOM HAD HEART SURGERY Obesity 03/21/2018 Sleep apnea 03/21/2018 Infection due to yeast 05/15/2017 Carotid bruit 03/31/2017 Fatigue 03/31/2017 Dyspnea on exertion 03/31/2017 Chest pain 03/31/2017 Decreased exercise tolerance 02/23/2017 Headache 02/23/2017 Cervical paraspinal muscle spasm 11/22/2016 Foraminal stenosis of cervical region 11/22/2016 Multilevel degenerative disc disease 12/03/2015 Chronic low back pain 12/03/2015 Neck pain, chronic 12/03/2015 Folliculitis 07/30/2015 Cervical disc herniation 01/29/2015 Right ankle pain 11/25/2014 Right knee pain 09/24/2014 Cervical stenosis of spine 07/09/2014 Memory changes 06/17/2014 Visual disturbance 06/17/2014 Pain, joint, shoulder 03/07/2013 Snoring 11/13/2012 Hypogonadism, testicular 09/04/2012 Erectile dysfunction of nonorganic origin 2011 Presence of cardiac pacemaker 10/16/1961 Overview (11/11/2020): mri safe HTN (hypertension) Dyslipidemia Hyperlipidemia associated wi th type 2 diabetes mellitus ([facility]) Resolved Problems Problem Noted Date Diagnosed Date Resolved Date Care Management 08/15/2024 09/11/2024 BMI 40.0-44.9, adult ([facility]) 03/30/2021 08/07/2024 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 11/07/2018 07/03/2023 Overview (11/11/2020): Overview: Added automatically from request for surgery plaauin carotid Encounter for health-related screening 11/07/2018 11/16/2020 Type 2 diabetes mellitus wit h other circulatory complication, without long-term current use of insulin ([facility]) 03/31/2017 01/11/2022 Encounters Date Type Department Care Team Description 11/28/2024 Telephone [facility] Family Internal [address] [phone] Chan Chao, DO Refill Request 11/11/2024 Patient Outreach [facility] Internal [address] [phone] Nadine De Leon, LASER ENGRAVER Care Management 11/07/2024 8:40 AM ANIMAL KILLER Office Visit [facility] Internal [address] [phone] Chan Chao, DO Diabetes (Routine follow up. ) 11/07/2024 Telephone [facility] Internal [address] [phone] Cahn Chao, DO Question 11/07/2024 Travel 10/22/2024 Telephone [facility] Internal [address] [phone] Chan Chao, DO Medication Request 10/04/2024 10:29 AM ANIMAL KILLER - 10/04/2024 11:59 PM ANIMAL KILLER Hospital Encounter [facility] [place] [address] Chan Chao, DO Discharge Disposition: Home or Self Care (Routine Discharge) 10/04/2024 Travel 09/19/2024 Telephone [facility] Internal [address] [phone] Chan Chao, DO Information 09/11/2024 Patient Outreach [address] [phone] Nadine Leone RN Care Management (CCM) 08/30/[address] [phone] Chan Chao, DO Medication Request from Last 3 Months Immunizations Name Administration Dates Next Due Fluzone 6 Months+ Quad (0.5 mL Prefilled Syringe) 08/05/2022,07/23/2021,09/25/2019 MODERNA 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[employer]), MRNA, LNP-S, PF, 50 MCG/ 0.25 ML DOSE 10/26/2021 Pneumococcal (Prevnar 20) 07/21/2022 Tdap (Adacel) 08/13/2021 Family History Medical History Relation Comments IA Mother Heart Disease Other Relation Status Comments Father Mother Other Social History Tobacco Use Types Packs/Day Years Used Date Smoking Tobacco: Never Passive Smoke Exposure: Never Smokeless Tobacco: Never Tobacco Cessation:Counseling Given: Not Answered Comments:na Alcohol Use Standard Drinks/Week Comments No 0 (1 standard drink = 0.6 oz pur e alcohol) [facility] Utilities Answer Date Recorded In the past 12 months has th e electric, gas, oil, or water company threatened to shut off services in your home? No 05/01/2024 Humiliation, Afraid, Rape, and Kick questionnair e Answer Date Recorded Within the last year, have y ou been afraid of your partner or ex-partner? No 05/01/2024 Within the last year, have y ou been humiliated or emotionally abused in other ways by your partner or ex-partner? No Within the last year, have y ou been kicked, hit, slapped, or otherwise physically hurt by your partner or ex-partner? No 05/01/2024 Within the last year, have y ou been raped or forced to have any kind of sexual activity by your partner or ex-partner? No 05/01/2024 AUDIT-C Answer Date Recorded Q1: How often do you have a drink containing alc ohol? Never 05/01/2024 Average Number of Drinks Not on file 024 Frequency of Binge Drinking Not on file 04/15 Overall Financial Resource Strain (CARDIA) Answe r Date Recorded How hard is it for you to pa y for the very basics like food, housing, medical care, and heating? Not hard at all 05/01/2024 PHQ-2 Answer Date Recorded Patient Health Questionnaire-2 Score 0 11/07/2024 Hunger Vital Sign Answer Date Recorded Within the past 12 months, y ou worried that your food would run out before you got the money to buy more. Never true 05/01/20 24 Within the past 12 months, t he food you bought just didn't last and you didn't have money to get more. Never true 05/01/2024 PRAPARE - Transportation Answer Date Re corded In the past 12 months, has l ack of transportation kept you from medical appointments or from getting medications? No 04/15 In the past 12 months, has l ack of transportation kept you from meetings, work, or from getting things needed for daily living? No 05/01/2024 Housing Stability Vital Sign Answer Armando e Recorded In the last 12 months, was t here a time when you were not able to pay the mortgage or rent on time? No 05/01/2024 In the past 12 months, how m any times have you moved where you were living? 0 05/01/2024 At any time in the past 12 m [facility], were you homeless or living in a [place] care facility (including now)? No 05/01/2024 Sex and Gender Information Value Date Recorded Sex Assigned at Male 11/07/2024 8:35 AM ANIMAL KILLER Legal Sex Male 2:51 PM CDT Gender Identity Male 11/07/2024 8:35 AM ANIMAL KILLER Sexual Orientation Not on file Last Filed Vital Signs Vital Sign Reading Time Taken Comments Blood Pressure 138/87 11/07/2024 8:36 AM ANIMAL KILLER Pulse 78 11/07/2024 8:36 AM ANIMAL KILLER Temperature 36.8 C (98.2 F) 11/07/2024 8:36 AM ANIMAL KILLER Respiratory Rate 16 11/07/2024 8:36 AM ANIMAL KILLER Oxygen Saturation 98% 11/07/2024 8:36 AM ANIMAL KILLER Inhaled Oxygen Concentration - - Weight 122.4 kg (269 lb 14.4 oz) 11/07/2024 8:36 AM ANIMAL KILLER Height 180.3 cm (5' 11 ) 11/07/2024 8:36 AM ANIMAL KILLER Body Mass Index 37.64 11/07/2024 8:36 AM ANIMAL KILLER Plan of Treatment Upcoming Encounters Date Type Department Care Team (Late st Contact Info) Description 12/06/2024 1:40 PM ANIMAL KILLER Allied Health/Nurse Visit [facility] Family & Internal Medicine [address] [phone] Chan Chao, DO [address] [place] [address] [phone] Health Maintenance Due Date Last Done Comments Diabetes: Retinopathy Eye Exam 1976 RSV Immunization or 60+ Years (1 - Risk 60-74 years 1-dose series) 01/08/2025 Postponed fro m 2018 (Going to Outside Clinic) Zoster Vaccines (1 of 2) 01/08/2025 Pos tponed from 2008 (Going to Outside Clinic) Hemoglobin A1C 05/07/2025 11/07/2024, 10/2 12/2023, 05/02/2024, Additional history exists Colorectal Cancer Screening FIT-DNA (3 Years) 06/05/2025 06/05/2024, 06/05/2024, 09/18/2018 COVID-19 Vaccine ( season) 2025 10/26/2021, 02/18/2021, 01/21/2021 Postponed from 06/16/2024 (Patient Refused) Influenza Adult (#1) 2025 08/05/2022, 07/23/2021, 09/25/2019 Postponed from 07/16/2024 (Patient Refused) Kidney Health Evaluation 10/04/2025 10/04/2024 Lipid Panel 10/04/2025 10/04/2024, 04/15, 02/21/2023, Additional history exists DTaP, Tdap and Td Vaccines (2 - Td or Tdap) 08/13/2031 08/13/2021 Colorectal Cancer Screening Colonoscopy (10 Years) Discontinued 10/18/2018, 10/17/2018 Pneumococcal Vaccine: 65+ Years Completed 07/21/2022 Pneumococcal Vaccine: Pediatrics (0 to 5 Years) and At-Risk Patients (6 to 64 Years) Completed 07/21/2022 Hepatitis C Completed 11/07/2024, 12/15, 10/24/2022, Additional history exists PHQ-2 (Phys[facility] [place]) Completed 11/07/2024 Meningococcal B Vaccine Aged Out No l onger eligible based on patient's age to complete this topic Meningococcal Vaccine Aged Out No didi jing eligible based on patient's age to complete this topic RSV Immunizations Under 20 Months Aged Out No longer eligible based on patient's age to complete this topic Medical Devices Implanted Type Area Sheet Roller Operator Device Identifier Shelf Expiration Date Model / Serial / Lot Atrial Lead-04/03/2018 Implanted:2017 (Quantity not on file) Lead Implant BI[employer]IK [id number] SOLIA S 53 / [id number] / Rv Lead-04/03/2018 Implanted:2017 (Quantity not on file) Lead Implant [employer] [id number] SOLIA S 60 / [id number] / Bio Pacemaker- 018 Implanted:2017 (Quantity not on file) Pacemaker BI[employer]RONIK [id number] BELEM MAZARIEGOS / [id number] / Description:Dr. Nataliia lima physician [phone] MR Conditional under following conditions: Static magnetic field of 1.5 T or 3 T, max spatial gradient field of 3000 gauss/cm or less, Max slew rate 200 T/m/s, Max whole body DL of 2 w/kg or less, Head DL 3.2 W/kg or less, Max 30 minutes active scan time in 60 minute window Procedures Procedure Name Priority Date/Time Associated Diagnosis Comments MG/PCCL UDS W CONF Routine 11/07/2024 8: 25 AM ANIMAL KILLER Encounter for long-term (current) use of medications COLLECT.CAPILLARY (FNGR,HEEL,EAR) Routine 11/07/2024 8:24 AM ANIMAL KILLER Type 2 diabetes mellitus with other circulatory complication, without long-term current use of insulin ([facility]/HCC HHS/HCC) HEMOGLOBIN, GLYCOSYLATED Routine 11/07/2024 Type 2 diabetes mellitus with other circulatory complication, without long-term current use of insulin (CMS/HCC HHS/HCC) VITAMIN B-12 Routine 10/04/2024 10:36 AM ANIMAL KILLER Type 2 diabetes mellitus with other circulatory complication, without long-term current use of insulin (CMS/HCC HHS/HCC) B12 deficiency Hypercholesterolemi a Screening for prostate cancer Annual physical exam TSH W/REFLEX Routine 10/04/2024 10:36 AM ANIMAL KILLER Type 2 diabetes mellitus with other circulatory complication, without long-term current use of insulin (CMS/HCC HHS/HCC) B12 deficiency Hypercholesterolemi a Screening for prostate cancer Annual physical exam PROSTATE SPECIFIC ANTIGEN,SCREENING Routine 10/04/2024 10:36 AM ANIMAL KILLER Type 2 diabetes mellitus with other circulatory complication, without long-term current use of insulin ([facility] HHS/HCC) B12 deficiency Hypercholesterolemi a Screening for prostate cancer Annual physical exam MAGNESIUM Routine 10/04/2024 10:36 AM ANIMAL KILLER Type 2 diabetes mellitus with other circulatory complication, without long-term current use of insulin (CMS/HCC HHS/HCC) B12 deficiency Hypercholesterolemi a Screening for prostate cancer Annual physical exam LIPID PANEL Routine 10/04/2024 10:36 AM ANIMAL KILLER Type 2 diabetes mellitus with other circulatory complication, without long-term current use of insulin ([facility] HHS/HCC) B12 deficiency Hypercholesterolemi a Screening for prostate cancer Annual physical exam CBC W/DIFF AUTOMATED Routine 10/04/2024 10:36 AM ANIMAL KILLER Type 2 diabetes mellitus with other circulatory complication, without long-term current use of insulin (CMS/HCC HHS/HCC) B12 deficiency Hypercholesterolemi a Screening for prostate cancer Annual physical exam ANTINUCLEAR ANTIBODY WI RFX Routine 10/04/2024 10:36 AM ANIMAL KILLER Polyarthralgia COMPREHENSIVE METABOLIC PANEL Routine 10/04/2024 10:36 AM ANIMAL KILLER Type 2 diabetes mellitus with other circulatory complication, without long-term current use of insulin (CMS/HCC HHS/HCC) B12 deficiency Hypercholesterolemi a Screening for prostate cancer Annual physical exam ALBUMIN URINE RANDOM W/CREATININE Routine 10/04/2024 10:31 AM ANIMAL KILLER Type 2 diabetes mellitus with other circulatory complication, without long-term current use of insulin (CMS/HCC HHS/HCC) B12 deficiency Hypercholesterolemi a Screening for prostate cancer Annual physical exam COLOGUARD (EXACT SCIENCE) Routine 06/05/2024 8:23 AM CDT Screening for malignant neoplasm of colon HEPATITIS C ANTIBODY Routine 09/25/2019 2:28 PM ANIMAL KILLER Need for hepatitis C screening test COLONOSCOPY GENERIC (SCAN ORDER) 10/18/2018 from Last 3 Months or Most Recently Relevant to Health Maintenance Results * (ABNORMAL) MG/PCCL UDS W CONF (11/07/2024 8:25 AM ANIMAL KILLER) RESULT SUMMARY [employer] [facility] Comment: Prescribed Prescribed Not Prescribed Consistent Inconsistent Inconsistent Sears(TM) PRESCRIBED DRUG 1 (U) Sears(TM) [employer] [facility] FENTANYL SCREEN (U) NEGATIVE <0.5 ng/mL [employer] [place] MORPHINE (U) NEGATIVE <10 ng/mL [facility] [place] DESMETHYLTRAMADOL (U) NEGATIVE <100 ng/mL [facility] [facility] [place] TRAMADOL (U) NEGATIVE <100 ng/mL [facility] [place] [place] TRAMADOL COMMENTS [facility] [place] Comment:See LDT Notes AMPHETAMINES PM NEGATIVE <500 ng/mL [facility] BARBITURATES PM (U) NEGATIVE <300 ng/mL [facility] [place] BENZODIAZEPINES PM (U) NEGATIVE <100 ng/mL [facility] [place] COCAINE METABOLITE PM (U) NEGATIVE <150 ng/mL [facility] [place] [place] MARIJUANA METABOLITE PM (U) NEGATIVE <20 ng/mL [facility] METHADONE PM (U) NEGATIVE <100 ng/mL [facility] OPIATES PM (U) POSITIVE(A) <100 ng/mL [facility] CODEINE PM (U) NEGATIVE <50 ng/mL [facility] HYDROCODONE PM (U) 3,220(H) <50 ng/mL [facility] HYDROCODONE PM MEDMATCH (U) CONSISTENT [facility] [place] HYDROMORPHONE PM (U) 1,157(H) <50 ng/mL [facility] HYDROMORPHONE PM MEDMATCH CONSISTENT [facility] MORPHINE PM (U) NEGATIVE <50 ng/mL [facility] NORHYDROCODONE PM (U) 3,315(H) <50 ng/mL [facility] NORHYDROCODONE PM MM (U) CONSISTENT [facility] OPIATES COMMENTS [facility] [place] Comment:See Opiates Notes, L DT Notes OXYCODONE PM (U) NEGATIVE <100 ng/mL [facility] [place] CREATININE RANDOM (U) 168.9 > or = 20.0 mg/dL [facility] pH PM (U) 6.2 4.5 - 9.0 [facility] OXIDANT NEGATIVE <200 mcg/mL [facility] NOTE [facility] Comment: This drug testing is for medical treatment only. Analysis was performed as non-forensic testing and these results should be used only by healthcare providers to render diagnosis or treatment, or to monitor progress of medical conditions. Opiates Notes: Hydrocodone, Norhydrocodone, Hydromorphone detected is consistent with the use of the drug Hydrocodone. Hydromorphone detected is consistent with the use of the drug Hydromorphone. Hydromorphone can be a prescribed drug and is also a metabolite of Hydrocodone. LDT Notes: Confirmation tests were developed and their analytical performance characteristics have been determined by [facility] It has not been cleared or approved by the FDA. This assay has been validated pursuant to the CLIA regulations and is used for clinical purposes. medMATCH(R) enables providers to identify if drug use is consistent or inconsistent with a corresponding prescribed medication(s) list. Healthcare Providers needing Interpretation assistance, please contact us at [phone] ( ) M-F, 8am to 10pm EST URINE SPECIMEN / Unknown 11/07/2024 8:25 AM ANIMAL KILLER 11/08/2024 1:22 AM ANIMAL KILLER Narrative Resulting Agency Comment Performing Organization Information: Site ID: [id number] Name: [facility] Address: [address] [place] [address] Director: Jos Quiroz Site ID: [id number] Name: [employer] Address: [address] [place] [id number] Director: Johnna Taylor MD Chan Chao DO URINE ORDERABLES Final R esult Performing Organization Address [facility] Co de Phone Number [employer] - ANGELA ANDERSON [employer] [facility] [address] [place] [address], [employer] [place] [address] [place] [address] * HEMOGLOBIN, GLYCOSYLATED (11/07/2024) HGB A1C 5.6 % [facility] 11/07/2024 Chan Chao DO LABORATORY Final Re sult Performing Organization Address [facility] Co de Phone Number [facility] [address] [place] [address], * TSH W/REFLEX (10/04/2024 10:36 AM ANIMAL KILLER) TSH 0.904 0.358 - 3.74 uIU/ML 10/04/2024 11:21 AM ANIMAL KILLER [facility] Comment: HIGH DOSES OF BIOTIN MAY INTERFERE WITH THIS TEST RESULT. CORRELATION TO CLINICAL HISTORY AND PRESENTATION RECOMMENDED. FREE T4 NOT INDICATED 10/04/2024 10:3 6 AM ANIMAL KILLER Chan Chao DO LABORATORY Final Re sult [facility] [address] [id number], [place] [phone] * ANTINUCLEAR ANTIBODY WI RFX (DEJA) (10/04/2024 10:36 AM ANIMAL KILLER) DEJA 0.2 10/07/2024 11:56 AM ANIMAL KILLER [facility] Comment: NEGATIVE: <0.7 RATIO DEJA PROFILE AND TITER NOT PERFORMED THE DEJA SCREEN TESTS FOR THE FOLLOWING ANTIBODIES BY EIA: SSA1 (RO), SSB1 (LA), LARSEN, SCL70, JO1, CENTROMERE, PEST CONTROL SPECIALIST HISTONE MUST BE ORDERED SEPARATELY DNA (DS) ANTIBODY 1.6 IU/ML 024 11:56 AM ANIMAL KILLER [facility] Comment: NEGATIVE: <10 IU/mL EQUIVOCAL: 10 to 15 IU/mL POSITIVE: >15 IU/mL THIS QUANTITATIVE ASSAY IS CALIBRATED TO THE [employer]'S WO/80 STANDARD. THE LEVEL OF dsDNA AUTOANTIBODY GERERALLY CORRELATES WITH THE LEVEL OF DISEASE ACTIVITY IN SYSTEMIC LUPUS ERYTHMATOSUS 10/04/2024 10:3 6 AM ANIMAL KILLER Chan Chao DO LABORATORY Final Re sult [facility] [address] [place] [address], [place] [phone] [id number] * (ABNORMAL) VITAMIN B-12 (10/04/2024 10:36 AM ANIMAL KILLER) VITAMIN B12 S/P/B 201(L) 254 - 1,320 PG/ML 10/04/2024 11:36 AM ANIMAL KILLER [facility] 10/04/2024 10:3 6 AM ANIMAL KILLER Chan Chao LABORATORY Final Re sult Performing Organization Address City/[facility]/ZIP Co de Phone Number [facility] [address] [place] [address], [place] [phone] * PROSTATE SPECIFIC ANTIGEN,SCREENING (10/04/2024 10:36 AM ANIMAL KILLER) PSA 0.17 <4.00 NG/ML 10/04/2024 11:21 AM [facility] Comment: Test was performed using the Siemens method. Results obtained with other assay methods or kits cannot be used interchangeably with results obtained by the Siemens method. 10/04/2024 10:3 6 AM ANIMAL KILLER Chan Chao LABORATORY Final Re sult Performing Organization Address [place] [facility]/ZIP Co de Phone Number [facility] [address] [place] [address], [place] [phone] * (ABNORMAL) COMPREHENSIVE METABOLIC PANEL (10/04/2024 10:36 AM ANIMAL KILLER) GLUCOSE 99 70 - 99 MG/DL 10/04/2024 11:21 AM ANIMAL KILLER [facility] BUN 13 7 - 18 MG/DL 10/04/2024 11:21 AM ANIMAL KILLER [facility] CREATININE S/P/B 0.99 0.7 - 1.3 MG/DL 10/04/2024 11:21 AM [facility] SODIUM S/P/B 138 136 - 145 MMOL/L 10/04/2024 11:21 AM [facility] POTASSIUM S/P/B 3.8 3.5 - 5.1 MMOL/L 10/04/2024 11:21 AM [facility] CHLORIDE S/P/B 107 97 - 115 MMOL/L 10/04/2024 11:21 AM [facility] CO2 26.2 21 - 32 MMOL/L 10/04/2024 11:21 AM [facility] CALCIUM S/P/B 9.3 8.5 - 10.1 MG/DL 10/04/2024 11:21 AM [facility] BILIRUBIN TOTAL S/P/B 1.3(H) 0.2 - 1.2 MG/DL 10/04/2024 11:21 AM [facility] Comment: THIS ASSAY IS NOT RECOMMENDED FOR PATIENTS UNDERGOING TREATMENT WITH ELTROMBOPAG DUE TO THE POTENTIAL FOR FALSELY ELEVATED RESULTS. TOTAL PROTEIN S/P/B 7.4 6.4 - 8.2 G/DL 10/04/2024 11:21 AM [facility] ALBUMIN S/P/B 3.6 3.4 - 5.0 G/DL 10/04/2024 11:21 AM [facility] AST 16 15 - 37 U/L 10/04/2024 11:21 AM [facility] ALT 19 16 - 60 U/L 10/04/2024 11:21 AM [facility] ALKALINE PHOSPHATASE S/P/B 64 50 - 136 U/L 10/04/2024 11:21 AM [facility] ANION GAP 4.8 2 - 10 MMOL/L 10/04/2024 11:21 AM [facility] BUN CREATININE RATIO 13.2 6 - 26 10/04/2024 11:21 AM [facility] A/G RATIO 0.9(L) 1.0 - 2.0 RATIO 10/04/2024 11:21 AM [facility] GFR ESTIMATE 85(L) >90 ML/MIN/1.7 3 M2 10/04/2024 11:21 AM [facility] Comment: NOTE: eGFR is not calculated for patients <18 years of age or gender unknown. This is an estimated GFR calculation using the new CKD EPI creatinine equation without race and so does not require a correction factor for race. This estimated GFR should not be used for calculating drug doses. 10/04/2024 10:3 6 AM ANIMAL KILLER Chan Chao DO LABORATORY Final Re sult [facility] [address] [place] [id number], * (ABNORMAL) LIPID PANEL (10/04/2024 10:36 AM ANIMAL KILLER) CHOLESTEROL 145 <200 MG/DL 10/04/2024 11:21 AM [facility] TRIGLYCERIDES 181(H) <150 MG/DL 10/04/2024 11:21 AM [facility] HDL 44 >40.0 MG/DL 10/04/2024 11:21 AM [facility] LDL (CALCULATED) 65 <100 MG/DL 10/04/2024 11:21 AM [facility] NON HDL CHOLESTEROL 101 <130 MG/DL 10/04/2024 11:21 AM [facility] CHOL/HDL RATIO 3.3 0.0 - 4.5 10/04/2024 11:21 AM [facility] VLDL CALCULATION 36 5 - 55 MG/DL 10/04/2024 11:21 AM [facility] LIPID INTERPRETATION 10/04/2024 11:21 AM ANIMAL KILLER [facility] Comment: NIH CONCENSUS REPORT RECOMMENDATIONS: ADULT CHILD LOW RISK: CHOLESTEROL <200 <170 TRIGLYCERIDE <150 --- HDL >=60 --- LDL <100 <110 BORDERLINE: CHOLESTEROL 200-239 170-199 TRIGLYCERIDE 150-199 --- HDL 40-59 --- LDL 100-159 110-129 HIGH RISK: CHOLESTEROL >=240 >=200 TRIGLYCERIDE >=200 --- HDL <40 --- LDL >=160 >=130 10/04/2024 10:3 6 AM ANIMAL KILLER us Chan Chao DO LABORATORY Final Re sult [facility] [address] [place] [address], [place] [phone] * (ABNORMAL) CBC W/DIFF AUTOMATED (10/04/2024 10:36 AM ANIMAL KILLER) WBC 7.37 4.5 - 11.0 x10'3/uL 10/04/2024 10:50 AM ANIMAL KILLER [facility] RBC 4.25(L) 4.70 - 6.10 x10'6/uL 10/04/2024 10:50 AM [facility] HGB 13.9(L) 14.0 - 18.0 G/DL 10/04/2024 10:50 AM ANIMAL KILLER [facility] HCT 42.3(L) 43.0 - 54.0 % 10/04/2024 10:50 AM [facility] MCV 99.5(H) 80.0 - 94.0 FL 10/04/2024 10:50 AM [facility] MCH 32.7(H) 27.0 - 31.0 PG 10/04/2024 10:50 AM [facility] MCHC 32.9 32.0 - 36.0 G/DL 10/04/2024 10:50 AM [facility] RDW 12.3 11.5 - 14.5 % 10/04/2024 10:50 AM [facility] PLT 177 130 - 400 x10'3/uL 10/04/2024 10:50 AM [facility] MPV 9.4 9.3 - 12.2 FL 10/04/2024 10:50 AM [facility] DIFFERENTIAL TYPE AUTOMATED DIFFERENTIAL 10/04/2024 10:50 AM [facility] NEUTROPHILS % 75.6 % 10/04/2024 10:50 AM [facility] LYMPHOCYTES % 16.7 % 10/04/2024 10:50 AM [facility] MONOCYTES % 6.0 % 10/04/2024 10:50 AM [facility] EOSINOPHILS 0.9 % 10/04/2024 10:50 AM [facility] BASOPHILS 0.4 % 10/04/2024 10:50 AM [facility] IMMATURE GRANS % 0.4 % 10/04/20 10:50 AM [facility] ABS. NEUTROPHILS 5.57 1.80 - 7.70 x10'3/uL 10/04/2024 10:50 AM [facility] ABS. LYMPHOCYTES 1.23 1.00 - 4.80 x10'3/uL 10/04/2024 10:50 AM [facility] ABS. MONOCYTES 0.44 0.30 - 0.82 x10'3/uL 10/04/2024 10:50 AM [facility] ABS. EOSINOPHILS 0.07 0.04 - 0.54 x10'3/uL 10/04/2024 10:50 AM [facility] ABS. BASOPHILS 0.03 0.01 - 0.08 x10'3/uL 10/04/2024 10:50 AM [facility] ABS. IMMATURE GRANULOCYTES 0.03 0.00 - 0.49 x10'3/uL 10/04/2024 10:50 AM [facility] 10/04/2024 10:3 6 AM ANIMAL KILLER Chan Chao DO LABORATORY Final Re sult [facility] [address] [place] [address], [place] [phone] * MAGNESIUM (10/04/2024 10:36 AM ANIMAL KILLER) MAGNESIUM 2.0 1.8 - 2.4 MG/DL 10/04/2024 11:21 AM [facility] 10/04/2024 10:3 6 AM ANIMAL KILLER Chan Chao DO LABORATORY Final Re sult Performing Organization Address City/[facility]/ZIP Co de Phone Number [facility] [address] [place] [address], [place] [phone] * ALBUMIN URINE RANDOM W/CREATININE (10/04/2024 10:31 AM ANIMAL KILLER) CREATININE (U) 158.0 39 - 259 MG/DL 10/04/2024 11:05 AM [facility] MICROALBUMIN (U) 0.6 <2.0 mg/dL 10/04/20 11:05 AM [facility] ALBUMIN/CREAT RATIO 3.8 <30 MG/G 10/04/2024 11:05 AM ANIMAL KILLER [facility] URINE SPECIMEN / Unknown 10/04/2024 10:31 AM ANIMAL KILLER Chan Marc Chao DO URINE ORDERABLES Final R esult [facility] [address] [place] [address], * (ABNORMAL) COLOGUARD (EXACT SCIENCE) (06/05/2024 8:23 AM CDT) COLOGUARD RESULT Positive( A) Negative [employer] (CLIA #:[id number]) Comment: POSITIVE TEST RESULT. A positive Cologuard result should be followed with a colonoscopy or visual examination of the colon. The normal value (reference range) for this assay is negative. TEST DESCRIPTION: Composite algorithmic analysis of stool DNA-biomarkers with hemoglobin immunoassay. Quantitative values of individual biomarkers are not reportable and are not associated with individual biomarker result reference ranges. Cologuard is intended for colorectal cancer screening of adults of either sex, 45 years or older, who are at average-risk for colorectal cancer (CRC). Cologuard has been approved for use by the U.S. FDA. The performance of Cologuard was established in a cross sectional study of average-risk adults aged 50-84. Cologuard performance in patients ages 45 to 49 years was estimated by sub-group analysis of near-age groups. Colonoscopies performed for a positive result may find as the most clinically significant lesion: colorectal cancer [4.0%], advanced adenoma (including sessile serrated polyps greater than or equal to 1cm diameter) [20%] or non- advanced adenoma [31%]; or no colorectal neoplasia [45%]. These estimates are derived from a prospective cross-sectional screening study of 10,000 individuals at average risk for colorectal cancer who were screened with both Cologuard and colonoscopy. (Rafael Machuca al, N Engl J Med 2014;370(14):6543-5885.) Cologuard may produce a false negative or false positive result (no colorectal cancer or precancerous polyp present at colonoscopy follow up). A negative Cologuard test result does not guarantee the absence of CRC or advanced adenoma (pre-cancer). The current Cologuard screening interval is every 3 years. ([place] [employer] Society and U.S. Multi-Society Task Force). Cologuard performance data in a 10,000 patient pivotal study using colonoscopy as the reference method can be accessed at the following location: www.[employer]/results. Additional description of the Cologuard test process, warnings and precautions can be found at www.cologuard.com. STOOL STOOL SPECIMEN / Unknown 06/05/2024 8:23 AM CDT 06/06/2024 1:21 PM CDT Chan Chao DO BODY FLUIDS AND STOOLS O RDERABLES Final Result Performing Organization Address [facility] Co de Phone Number [employer] ([facility]) [address] [place] [address], [employer] (CLIA #:[id number]) [address] [place] [address] * (ABNORMAL) HEPATITIS C ANTIBODY (09/25/2019 2:28 PM ANIMAL KILLER) HEPATITIS C AB REACTIVE(A ) NON-REACTI VE 09/25/2019 9:10 PM ANIMAL KILLER [facility] Comment: NOTE: A POSITIVE RESULT WILL BE CONFIRMED BY THE HEP C RNA, QUANT, PCR TEST. 09/25/2019 2:28 PM ANIMAL KILLER Chan Chao DO LABORATORY Final Re sult Performing Organization Address [facility] Co de Phone Number [facility] [address] [place] [address], [place] [phone] * COLONOSCOPY GENERIC (10/18/2018) 10/18/2018 Narrative 10/18/2018 Ordered by an unspecified provider. us Documents Scanned SCANNING Final Result from Last 3 Months or Most Recently Relevant to Health Maintenance Insurance AET[employer] Advance Directives * Full Code (Latest Code Status on File) Date Activated Date Inactivated Comments 05/01/2024 2:16 PM 05/02/2024 3:41 PM Care Teams Oil Rig Driller Relationship Specialty Start Date End Date Chan Chao DO [address] [place] [address] PCP - General FAMILY PRACTICE 08/24/18 Dwaine Gaitan MD [facility]. [address] [place] [address] Kami Barrel Filler CARDIOVASCULAR DISEASE 03/30/17
--- OUTSIDE RECORDS SUMMARY | 2024-11-29 13:57 | XMS_ITS | Encounter Summary ---
Author Organization [facility] Address [address] [place] [address] Care Team Providers Care Actuarial Technician Name Role Phone Dwaine Gaitan MD Unavailable [phone] Chan Chao DO Primary Care Provider + Nadine Leone RN Unavailable [phone] Encounter Details Date Type Department Care Team (Late Contact Info) Description 07/18/2022 Abstract [facility], [address] [address] Julia Ordoñez MA Social History Tobacco Use Types Packs/Day Years Used Date Smoking Tobacco: Never Smokeless Tobacco: Never Alcohol Use Standard Drinks/Week Comments No 0 (1 standard drink = 0.6 oz pur e alcohol) PHQ-2 Answer Date Recorded PHQ-2 Score - If the patient scores above 3, please move on to questions 3-9 0 01/11/2022 Sex and Gender Information Value Date Recorded Sex Assigned at Male 11/07/2024 8:35 AM YOKER MACHINE OPERATOR Legal Sex Male 2:51 PM CDT Gender Identity Male 11/07/2024 8:35 AM YOKER MACHINE OPERATOR Sexual Orientation Not on file COVID-19 Exposure Response Date Recorded In the last 10 days, have yo u been in contact with someone who was confirmed or suspected to have Coronavirus/COVID-19? No / Unsure 07/21/2022 1:05 PM CDT documented as of this encounter Plan of Treatment Upcoming Encounters Date Type Department Care Team (Late Contact Info) Description 12/06/2024 1:40 PM YOKER MACHINE OPERATOR Allied Health/Nurse Visit [facility] Family & Internal Medicine [address] [place] [address] Chan Chao DO [address] [place] [address] documented as of this encounter Procedures Procedure Name Priority Date/Time Associated Diagnosis Comments BASIC METABOLIC PANEL Routine 07/14/2022 documented in this encounter Results * BASIC METABOLIC PANEL (07/14/2022) SODIUM S/P/B 137 POTASSIUM S/P/B 4.1 CO2 23 CHLORIDE S/P/B 104 GLUCOSE 148 mg/dL CALCIUM S/P/B 9.2 BUN 10 CREATININE S/P/B 0.92 0.7 - 1.3 EGFR NON-AFR. AMER. >60 <=90 07/14/2022 us Doc [facility]ORATORY Final Result documented in this encounter Visit Diagnoses Not on filedocumented in this encounter Additional Health Concerns Infection Onset Date Last Indicated Resolved Time COVID-19 Rule Out 08/31/2023 08/31/2023 08/31/2023 3:55 PM YOKER MACHINE OPERATOR COVID-19 Confirmed 08/31/2023 08/31/2023 12:32 AM YOKER MACHINE OPERATOR COVID-19 Rule Out 05/01/2024 05/01/2024 05/01/2024 11:01 AM CDT Assessment Noted Time PHQ-9 Depression Total Score: 0 01/12/20 22 10:52 AM CDT documented as of this encounter Care Teams Actuarial Technician Relationship Specialty Start Date End Date Chan Chao DO [address] [place] [address] PCP - General FAMILY PRACTICE 08/24/18 Dwaine Gaitan MD [address] [address] Kami Director Of Education And Training CARDIOVASCULAR DISEASE 03/30/17 Nadine Leone, RN [address] [facility] [address] [place] [address] Registered Nurse CARE MANAGEMENT 08/08/24 09/10/24 documented as of this encounter
--- OUTSIDE RECORDS SUMMARY | 2024-11-29 13:57 | XMS_ITS | Encounter Summary ---
Author Organization [facility] Address [address] [place] [address] Care Team Providers Care Ict Quality Assurance Engineer Name Role Phone Eliazar Duran MD Primary Care Provider Dwaine Thurston MD Unavailable [phone] Chan Chao DO Primary Care Provider + Nadine Leone RN Unavailable [phone] Encounter Details Date Type Department Care Team (Late Contact Info) Description 04/03/2017 Abstract [facility] AT [address] [address] Julia Ordoñez MA Social History Tobacco Use Types Packs/Day Years Used Date Smoking Tobacco: Never Smokeless Tobacco: Never Alcohol Use Standard Drinks/Week Comments No 0 (1 standard drink = 0.6 oz pur e alcohol) Sex and Gender Information Value Date Recorded Sex Assigned at Male 11/07/2024 8:35 AM TUYERE FITTER Legal Sex Male 2:51 PM CDT Gender Identity Male 11/07/2024 8:35 AM TUYERE FITTER Sexual Orientation Not on file documented as of this encounter Plan of Treatment Upcoming Encounters Date Type Department Care Team (Late st Contact Info) Description 12/06/2024 1:40 PM TUYERE FITTER Allied Health/Nurse Visit [facility] Group Family & Internal Medicine [address] [phone] Chan Chao DO [address] [place] [address] documented as of this encounter Procedures Procedure Name Priority Date/Time Associated Diagnosis Comments COMPREHENSIVE METABOLIC PANEL Routine 01/05/2017 LIPID PANEL Routine 01/05/2017 documented in this encounter Results * COMPREHENSIVE METABOLIC PANEL (01/05/2017) SODIUM S/P/B 142 POTASSIUM S/P/B 4.3 CO2 28 CHLORIDE S/P/B 102 GLUCOSE 91 CALCIUM S/P/B 9.7 BUN 9 CREATININE S/P/B 0.85 0.7 - 1.3 EGFR NON-AFR. AMER. >60 <=90 ALKALINE PHOSPHATASE S/P/B 47 ALT 22 AST 22 BILIRUBIN TOTAL S/P/B 0.4 ALBUMIN S/P/B 4.1 3.5 - 5.0 TOTAL PROTEIN S/P/B 7.1 GLOBULIN 3.0 01/05/2017 us Doc [facility] Final Result * LIPID PANEL (01/05/2017) CHOLESTEROL 217 HDL 27 TRIGLYCERIDES 168 LDL (CALCULATED) 156 01/05/2017 us Doc [facility] Final Result documented in this encounter Visit Diagnoses Not on filedocumented in this encounter Additional Health Concerns Infection Onset Date Last Indicated Resolved Time COVID-19 Rule Out 09/30/2020 09/30/2020 10/07/2020 2:11 PM TUYERE FITTER COVID-19 Confirmed 09/30/2020 09/30/2020 1 12:34 AM TUYERE FITTER COVID-19 Rule Out 08/31/2023 08/31/2023 08/31/2023 3:55 PM TUYERE FITTER COVID-19 Confirmed 08/31/2023 08/31/2023 3 12:32 AM TUYERE FITTER COVID-19 Rule Out 05/01/2024 05/01/2024 05/01/2024 11:01 AM CDT documented as of this encounter Care Teams Ict Quality Assurance Engineer Relationship Specialty Start Date End Date Eliazar Duran MD PCP - General FAMILY PRACTICE 02/13/17 08/23/18 Chan Chao DO [address] [place] [address] PCP - General FAMILY PRACTICE 08/24/18 Dwaine Gaitan MD [facility]. [address] [address] [place] Mailroom Courier CARDIOVASCULAR DISEASE 03/30/17 Nadine Leone, RN [address] [facility] [address] [place] [address] Registered Nurse CARE MANAGEMENT 08/08/24 09/10/24 documented as of this encounter
--- OUTSIDE RECORDS SUMMARY | 2024-11-29 13:57 | XMS_ITS | Encounter Summary ---
Author Organization [facility] Address [facility] [place] [address] Care Team Providers Care Cement Boat And Barge Loader Name Role Phone Dwaine Gaitan MD Unavailable [phone] Danielle Stubbs DO Primary Care Provider + Reason for Visit * Reason Onset Date Comments Refill Request 11/28/2024 Encounter Details Date Type Department Care Team (Late st Contact Info) Description 11/28/2024 Telephone [facility] Family & Internal Medicine [facility] [address] [place] [address] Danielle Stubbs DO [address] [place] [address] Refill Request Social History Tobacco Use Types Packs/Day Years Used Date Smoking Tobacco: Never Passive Smoke Exposure: Never Smokeless Tobacco: Never Comments:na Alcohol Use Standard Drinks/Week Comments No 0 (1 standard drink = 0.6 oz pur e alcohol) [facility] Utilities Answer Date Recorded In the past 12 months has [employer], gas, oil, or water [employer] threatened to shut off services in your [...] any time in the past 12 m [facility], were you homeless or living in a fci (including now)? No 05/01/2024 Sex and Gender Information Value Date Recorded Sex Assigned at Male 11/07/2024 8:35 AM TACTICAL DEBRIEFER Legal Sex Male 2:51 PM CDT Gender Identity Male 11/07/2024 8:35 AM TACTICAL DEBRIEFER Sexual Orientation Not on file documented as of this encounter Functional Status * Are you deaf or do you have serious difficulty hearing Answer Date of Assessment Author Status No 05/01/2024 5:00 PM Payton Lamas RN Active * Are you blind or do you have serious difficulty seeing, even when wearing glasses? Answer Date of Assessment Author Status No 05/01/2024 5:00 PM Payton Lamas RN Active * Do you have serious difficulty walking or climbing stairs? Answer Date of Assessment Author Status No 05/01/2024 5:00 PM Payton Lamas RN Active * Do you have difficulty dressing or bathing? Answer Date of Assessment Author Status No 05/01/2024 5:00 PM Payton Lamas RN Active * Because of a physical, mental, or emotional condition, do you have difficulty doing errands alone such as visiting a doctor's office or shopping? Answer Date of Assessment Author Status No 05/01/2024 5:00 PM Payton Lamas RN Active documented as of this encounter Mental Status * Because of a physical, mental, or emotional condition, do you have serious difficulty concentrating, remembering, or making decisions? Answer Entry Date Author Status No 05/01/2024 5:00 PM Payton Lamas RN Active documented in this encounter Progress Notes * Shirley Camarena MA - 11/28/2024 9:53 AM CST Refill request received from Pharmacy Last visit with DANIELLE STUBBS in FAMILY PRACTICE was on: 11/07/2024 in [facility] Future Appointments Date Time Provider Department Center 12/06/2024 1:40 PM [facility] NURSE [facility] - [place], [place] - [address] [place] [address] Current Outpatient Medications: albuterol sulfate HFA 108 (90 Base) MCG/ACT inhaler, Inhale 2 puffs into the lungs every 6 (six) hours as needed for Wheezing., Disp: 18 g, Rfl: 2 aspirin (ASPIRIN LOW DOSE) 81 MG chewable tablet, Chew 1 tablet (81 mg total) by mouth daily., Disp: 90 tablet, Rfl: 3 fluticasone furoate-vilanterol (BREO ELLIPTA) 100-25 MCG/ACT inhaler, Inhale 1 puff into the lungs daily., Disp: 60 each, Rfl: 2 HYDROcodone-acetaminophen (NORCO) 10-325 MG tablet, Take 1 tablet by mouth every 8 (eight) hours asneeded for Pain. Indications: Chronic Pain, Disp: 90 tablet, Rfl: 0 lidocaine (LIDODERM) 5 %, Place 1 patch onto the skin daily. Remove & Discard patch within 12 hours or as directed by MD (Patient taking differently: Place 1 patch onto the skin daily as needed (pain). Remove & Discard patch within 12 hours or as directed by MD), Disp: 30 patch, Rfl: 1 pravastatin (PRAVACHOL) 80 MG tablet, TAKE 1 TABLET BY MOUTH EVERY DAY, Disp: 90 tablet, Rfl: 0 Spacer/Aero-Holding Chambers Device, Use with inhaler as prescribed., Disp: 1 each, Rfl: 0 tadalafil (CIALIS) 20 MG tablet, Take 1 tablet (20 mg total) by mouth daily as needed for Erectile Dysfunction., Disp: 10 tablet, Rfl: 2 tiZANidine (ZANAFLEX) 2 MG tablet, Take 1 tablet (2 mg total) by mouth every 8 (eight) hours as needed., Disp: 30 tablet, Rfl: 2 ICAL DEBRIEFER * Ema Wright - 11/28/2024 9:42 AM CST Pt is needing a refill on hydrocodone 10-325 mg, [facility]. ICAL DEBRIEFER documented in this encounter Plan of Treatment Upcoming Encounters Date Type Department Care Team (Late st Contact Info) Description 12/06/2024 1:40 PM TACTICAL DEBRIEFER Allied Health/Nurse Visit [facility] Family & Internal Medicine - [address] [phone] Danielle Stubbs, [address] [place] [address] documented as of this encounter Visit Diagnoses Diagnosis Cervical stenosis of spine Spinal stenosis in cervical region documented in this encounter Additional Health Concerns Assessment Noted Time PHQ-9 Depression Total Score: 0 01/12/20 22 10:52 AM CDT documented as of this encounter Care Teams Cement Boat And Barge Loader Relationship Specialty Start Date End Date Danielle Stubbs DO [address] [place] [address] PCP - General FAMILY PRACTICE 08/24/18 Dwaine Gaitan MD Three [facility]. [address] [address] [place] Global Manager CARDIOVASCULAR DISEASE 03/30/17 documented as of this encounter
== END 2024-11-29 13:52 | disposition home or self-care (01) ==
PROVIDERS: PCP Student in an Organized Health Care Education/Training Program; Visit Provider Orthopaedic Surgery
DX: M16.12 Unilateral primary osteoarthritis, left hip (principal)
CPT/HCPCS: 20610; 77002; J1010

== ENCOUNTER 2025-07-30 10:26 | Outpatient (CLI) | payer MEDICARE, SELFPAY ==
--- NOTE | 2025-07-30 10:40 | ECG_ITS ---
Test Date: 2025-07-30 10:55:57 Measurements Intervals [place] Rate: 60 P: 113 OK: 253 QRS: -3 QRSD: 103 T: 23 QT: 422 QTc: 422 Interpretive Statements ELECTRONIC ATRIAL PACEMAKER DELAYED PRECORDIAL R/S TRANSITION ATYPICAL ECG No previous ECG available for comparison Electronically Signed On 07-30-2025 12:17:58 CDT by Scott Burr D.O.
[2025-07-30 10:57] LABS: Add Urine Microscopic? NO; Appearance Urine Clear (Clear); Glucose Urine UA Negative (Negative); Leukocyte Esterase Ur Negative LEU/UL (Negative); Nitrate Urine Negative (Negative); Specific Grav Ur 1.019 (1.001-1.035)
[2025-07-30 11:15] LABS: Anion Gap 10 mmol/L (4-12); Blood Urea Nitrogen 14 mg/dL (9-20); Calcium 9.2 mg/dL (8.4-10.2); Carbon Dioxide 24 mmol/L (22-30); Chloride 105 mmol/L (98-107); Estimated Glomerular Filt Rate > 60; Glucose 89 mg/dL (65-110); Potassium 4.2 mmol/L (3.4-5.0); Sodium 139 mmol/L (137-145)
[2025-07-30 11:18] LABS: Hematocrit 41.9 % (42.0-52.0); Hemoglobin 14.0 g/dL (14.0-18.0); Immature Granulocyte Percent A 0.3 % (0-0.5); Lymphocytes Absolute Auto 1.39 K/mm3 (0.9-3.2); Mean Corpuscular HGB Conc 33.4 g/dl (32-36); Mean Corpuscular Hemoglobin 32.5 pg (26-34); Mean Corpuscular Volume 97.2 fl (80-100); Nucleated Red Blood Cells Absolute Auto 0.000 K/mm3 (0.0-0.012); Nucleated Red Blood Cells Perc 0.0 % (0.0-0.2); Platelet Count Result 177 k/mm3 (150-375); Red Blood Count 4.31 M/mm3 (4.6-6.20); White Blood Count 6.8 K/mm3 (4.5-10.0)
--- OUTSIDE RECORDS SUMMARY | 2025-07-30 12:15 | XMS_ITS | Data Portability ---
Author Organization Adonis HORN Address [address] [place] [address] Assessment No assessment recorded. Plan of Treatment Reminders Order Date Submit Date Provider Last Modified By Organization Details Last Modified Time Details Appointments None recorded . Lab PSA, total, serum or plasma [address] [facility], [address] [place] [address], [facility] [address], [place], [address], 4 15:11:31 lipid panel, serum 2023 024 [facility], [address] [place] [address], [address], [place], [address], 4 15:11:26 CMP, serum or plasma 2023 024 [facility], [address] [place] [address], [facility] [address], [place], [address], 4 15:11:27 CBC w/ auto diff 2023 024 [facility], [address] [place] [address], [address], [place], [address], 4 15:11:28 DEJA (antinuc lear antibodi es) screen, ifa, serum 2023 024 [facility], [address] [place] [address], [facility] [address], [place], [address], 4 15:11:24 erythroc yte sediment ation rate by carlos en method 2023 024 [facility] LY, [address], [address], [place], [address], 4 15:11:29 rf (rheumat oid factor), serum 2023 024 [facility] LY, [address], [address], [place], [address], 4 15:11:30 sjogren antibody panel (ssa, ssb, ro, la), serum 2023 024 [facility] GUNDERSONJES, [address], [address], [place], [address], 4 15:11:32 dsDNA Ab, serum 2023 024 [facility] LY, [address], [address], [place], [address], 4 15:11:33 CMP, serum or plasma 2017 018 [facility] LY, Christopher Carlni, [address], [place], [address], 8 01:51:37 CBC w/ auto diff 2017 018 [facility] LY, [address], [address], [place], [address], 8 06:17:20 CMP, serum or plasma 2017 018 [facility] GUNDERSONJES, [address], [address], [place], [address], 8 06:17:20 lipid panel, serum 2017 018 [facility], [address], [address], [place], [address], 8 06:17:21 CMP, serum or plasma 2016 017 [facility], [address], [address], [place], [address], 7 15:14:19 lipid panel, serum 2016 017 [facility], [address], [address], [place], [address], 7 15:14:20 HbA1c (hemoglo bin A1c), blood 2016 017 [facility], [address], [address], [place], [address], 7 15:14:21 unlisted lab - complian ce drug analysis , ur 2016 017 [facility], [address], [address], [place], [address], 7 15:14:18 TSH + free T4, serum 2016 017 [facility], [address], [address], [place], [address], 7 15:14:19 Referral orthoped ic surgeon referral 2023 024 zoraida Marino MD, [address], [address], [place], [address], 4 15:14:[address] referral 2023 024 zoraida Gomez MD, [address], [address], [place], [address], 4 14:35:17 pain manageme nt referral - please call patient to schedule appt. Thank you 2017 018 [email or web address] Matthew Rivas MD, [address] [facility], [address], [place], [address], 8 15:47:46 Procedures None recorded . Surgeries None recorded . Imaging XR, knee, 1 or 2 view - left 2023 024 [facility], [address], [address], [place], [address], 4 19:31:06 XR, hip, unilater al - left 2023 024 [facility], [address], [address], [place], [address], 4 19:32:01 cardiac stress test 2017 018 [facility] [address] [place], [address], 8 11:47:25 Medication Orders Medrol (Pedrito) 4 mg tablets in a dose pack 2023 024 [facility], [address] [place], [address], 4 10:52:34 Kenalog- 80 80 mg/mL suspensi on for injectio n [address] [facility], [address] [place], [address], 4 17:51:22 Medrol (Pedrito) 4 mg tablets in a dose pack 2023 024 [email or web address] [facility], [address] [place], [address], 4 16:31:25 Kenalog- 80 80 mg/mL suspensi on for injectio n 2023 024 [facility], [address] [place], [address], 4 17:51:22 Benicar HCT 20 mg-12.5 mg tablet [address] [id number], [address], [place], [place], [id number], 8 11:07:11 metoprol ol succinat e ER 100 mg tablet,e xtended release 24 hr 2017 018 [id number], [address], [place], [place], [id number], 8 13:03:26 omeprazo le 40 mg capsule, delayed release [address] [facility]09317, [address], [place], [place], [id number], 8 11:07:14 pravasta tin 20 mg tablet [address] [facility]79414, [address], [place], [place], [id number], 8 11:06:33 pravasta tin 40 mg tablet 2016 017 [facility]18923, [address], [place], [place], [id number], 4 15:35:51 Patient TargetsNo targets recorded. Patient Instructions Encounter Date Encounter Id Patient Instructions Last Modified By Organization Details Last Modified Time 09/14/2017 [id number] learning about high blood sugar [facility] Not available 09/14/2017 12:27:04 When You Want to Lose Weight: Care Instructions [facility] Not available 09/14/2017 12:27:04 insulin resistance: care instructions [facility] Not available 09/14/2017 12:35:06 12/06/2017 [id number] cardiac perfusio n scan (medicine): about this test [facility] Not available 12/06/2017 16:23:35 When You Want to Lose Weight: Care Instructions [facility] Not available 12/06/2017 16:25:42 When You Want to Lose Weight: Care Instructions [facility] Not available 12/06/2017 16:25:43 03/25/2024 [id number] A healthy lifestyle: care instructions [email or web address] Not available 03/25/2024 16:31:25 Reason for Referral Pain Management Referral for Chronic low back pain please call patient to schedule appt. Thank you Referring Physician: Homero Godoy, Internal Medicine, Encounter Date: 12/06/2017 Interventional Technologist Referral for Screening for malignant neoplasm of colon Referring Physician: Ray Flores [facility], Encounter Date: 03/25/2024 Orthopedic Surgeon Referral for Osteoarthritis of knee Referring Physician: Ray Flores [facility], Encounter Date: 03/25/2024 Results Created [...] Resul t Flag Units Drug Prese nt Nezperce codon e 2833 ng/mg creat Nezperce morph one 950 ng/mg creat Dihyd rocod eine 751 ng/mg creat Norhy droco done 2082 ng/mg creat Sourc es of hydro codon e inclu de sched uled presc ripti on medic ation s. Nezperce morph one, dihyd rocod eine and norhy droco done are expec roxy metab olite s of hydro codon e. Nezperce morph one and dihyd rocod eine are [...] ===== ===== === Not Available [facility] [address], [place], [address], 09/19/2017 15:14:18 09/14/20 17 09/19/2017 drug scree n, urine pdf . Not Available [facility] [address], [place], [address], 09/19/2017 15:14:18 09/14/20 17 09/15/2017 TSH + free T4, serum TSH TNP uIU/m L No speci men recei julia, pleas e resub josey. Not Available [facility] ([facility]) [address] [place], [address], 09/19/2017 15:14:19 09/14/20 17 09/15/2017 TSH + free T4, serum T4,free(dire ct) TNP Test not perfo rmed Not Available [facility] ([facility]) [address] [place], [address], 09/19/2017 15:14:19 09/14/20 17 09/15/2017 CMP, serum or plasm a glucose, serum TNP mg/dL No speci men recei julia, pleas e resub josey. Not Available [facility] ([facility]) [address] [facility], [place], [address], 09/19/2017 15:14:19 09/14/20 17 09/15/2017 CMP, serum or plasm a BUN TNP Test not perfo rmed Not Available [facility] ([facility]) [address] [place], [address], 09/19/2017 15:14:19 09/14/20 17 09/15/2017 CMP, serum or plasm a creatinine, serum TNP Test not perfo rmed Not Available [facility] ([facility]) [address] [place], [address], 09/19/2017 15:14:19 09/14/20 17 09/15/2017 CMP, serum or plasm a eGFR if nonafricn AM ETCHER HAND Not Available [facility] ([facility]) [address] [place], [address], 09/19/2017 15:14:19 09/14/20 17 09/15/2017 CMP, serum or plasm a eGFR if africn AM ETCHER HAND Not Available [facility] ([facility]) [address] [place], [address], 09/19/2017 15:14:19 09/14/20 17 09/15/2017 CMP, serum or plasm a BUN/creatini ne ratio ETCHER HAND Not Available [facility] ([facility]) [address] [place], [address], 09/19/2017 15:14:19 09/14/20 17 09/15/2017 CMP, serum or plasm a sodium, serum TNP Test not perfo rmed Not Available [facility] ([facility]) [address] [place], [address], 09/19/2017 15:14:19 09/14/20 17 09/15/2017 CMP, serum or plasm a potassium, serum TNP Test not perfo rmed Not Available [facility] ([facility]) [address] [facility], [place], [address], 09/19/2017 15:14:19 09/14/20 17 09/15/2017 CMP, serum or plasm a chloride, serum TNP Test not perfo rmed Not Available [facility] ([facility]) [address] [place], [address], 09/19/2017 15:14:19 09/14/20 17 09/15/2017 CMP, serum or plasm a carbon dioxide, total TNP Test not perfo rmed Not Available [facility] ([facility]) [address] [place], [address], 09/19/2017 15:14:19 09/14/20 17 09/15/2017 CMP, serum or plasm a calcium, serum TNP Test not perfo rmed Not Available [facility] ([facility]) [address] [place], [address], 09/19/2017 15:14:19 09/14/20 17 09/15/2017 CMP, serum or plasm a protein, total, serum TNP Test not perfo rmed Not Available [facility] ([facility]) [address] [place], [address], 09/19/2017 15:14:19 09/14/20 17 09/15/2017 CMP, serum or plasm a albumin, serum TNP Test not perfo rmed Not Available [facility] ([facility]) [address] [facility], [place], [address], 09/19/2017 15:14:19 09/14/20 17 09/15/2017 CMP, serum or plasm a globulin, total ETCHER HAND Not Available [facility] ([facility]) [address] [place] [address], [address], 09/19/2017 15:14:19 09/14/20 17 09/15/2017 CMP, serum or plasm a A/G ratio ETCHER HAND Not Available [facility] ([facility]) [address] [place] [address], [place], [address], 09/19/2017 15:14:19 09/14/20 17 09/15/2017 CMP, serum or plasm a bilirubin, total TNP Test not perfo rmed Not Available [facility] ([facility]) [address] [place], [address], 09/19/2017 15:14:19 09/14/20 17 09/15/2017 CMP, serum or plasm a alkaline phosphatase, S TNP Test not perfo rmed Not Available [facility] ([facility]) [address] [place] [address], [address], 09/19/2017 15:14:19 09/14/20 17 09/15/2017 CMP, serum or plasm a AST (SGOT) TNP Test not perfo rmed Not Available [facility] ([facility]) [address] [place], [address], 09/19/2017 15:14:19 09/14/20 17 09/15/2017 CMP, serum or plasm a ALT (SGPT) TNP Test not perfo rmed Not Available [facility] ([facility]) [address], [place], [address], 09/19/2017 15:14:19 09/14/20 17 09/15/2017 lipid panel , serum cholesterol, total TNP mg/dL No speci men recei julia, pleas e resub josey. Not Available [facility] ([facility]) [address] [facility], [place], [address], 09/19/2017 15:14:20 09/14/20 17 09/15/2017 lipid panel , serum triglyceride s TNP Test not perfo rmed Not Available [facility] ([facility]) [address] [facility] [place], [address], 09/19/2017 15:14:20 09/14/20 17 09/15/2017 lipid panel , serum HDL cholesterol TNP Test not perfo rmed Not Available [facility] ([facility]) [address] [facility], [place], [address], 09/19/2017 15:14:20 09/14/20 17 09/15/2017 lipid panel , serum VLDL cholesterol ken ETCHER HAND Not Available [facility] ([facility]) [address] [facility] [place], [address], 09/19/2017 15:14:20 09/14/20 17 09/15/2017 lipid panel , serum LDL cholesterol calc ETCHER HAND Not Available [facility] ([facility]) [address] [facility], [place], [address], 09/19/2017 15:14:20 09/14/20 17 09/15/2017 lipid panel , serum comment: ETCHER HAND Not Available [facility] ([facility]) [address] [facility], [place], [address], 09/19/2017 15:14:20 09/14/20 17 09/15/2017 lipid panel , serum LDL/HDL ratio ETCHER HAND Not Available [facility] ([facility]) [address] [facility], [place], [address], 09/19/2017 15:14:20 09/14/20 17 09/15/2017 HbA1c (hemo globi n A1c), blood hemoglobin A1C TNP % No speci men recei julia, luther e resub josey. Pre-d iabet es: 5.7 - 6.4 Diabe bin: >6.4 Glyce wilfred contr ol for adult s with diabe bin: <7.0 Not Available [facility] ([facility]) [address] [facility], [place], [address], 09/19/2017 15:14:21 09/14/20 17 09/15/2017 speci men statu s repor t specimen status report TNP No speci men recei julia, luther e resub josey. TEST: [id number] TSH+F ree T4 82769 0 Comp. Metab olic Panel [phone] 0 Lipid Panel With LDL/H DL Ratio 42458 3 Hemog lobin A1c Not Available [facility] ([facility]) [address] [facility], [place], [address], 09/19/2017 15:14:22 10/19/19 18 10/20/2017 TSH + free T4, serum TSH 2.260 uIU/m L 0.450- 4.500 Not Available [facility] ([facility]) [address] [facility], [place], [address], 10/20/2017 07:07:16 10/19/19 18 10/20/2017 TSH + free T4, serum T4,free(dire ct) 0.89 NG/dL 0.82-1 .77 Not Available [facility] ([facility]) [address] [place], [address], 10/20/2017 07:07:16 10/19/19 18 10/20/2017 CMP, serum or plasm a glucose, serum 102 mg/dL 65-99 above high normal Not Available [facility] ([facility]) [address] [facility] [place], [address], 10/20/2017 07:07:16 10/19/19 18 10/20/2017 CMP, serum or plasm a BUN 12 mg/dL 6-24 Not Available [facility] ([facility]) [address] [place], [address], 10/20/2017 07:07:16 10/19/1910/20/2017 CMP, serum or plasm a creatinine, serum 0.95 mg/dL 0.76-1 .27 Not Available [facility] ([facility]) [address] [facility] [place], [address], 10/20/2017 07:07:16 10/19/1910/20/2017 CMP, serum or plasm a eGFR if nonafricn AM 88 mL/mi n/1.7 3 >59 Not Available [facility] ([facility]) [address] [facility] [place], [address], 10/20/2017 07:07:16 10/19/19 18 10/20/2017 CMP, serum or plasm a eGFR if africn AM 102 mL/mi n/1.7 3 >59 Not Available [facility] ([facility]) [address] [facility] [place], [address], 10/20/2017 07:07:16 10/19/1910/20/2017 CMP, serum or plasm a BUN/creatini ne ratio 13 9-20 Not Available [facility] ([facility]) [address] [facility] [place], [address], 10/20/2017 07:07:16 10/19/19 18 10/20/2017 CMP, serum or plasm a sodium, serum 144 mmol/ L 134-14 4 Not Available [facility] ([facility]) [address] [place], [address], 10/20/2017 07:07:16 10/19/1910/20/2017 CMP, serum or plasm a potassium, serum 4.5 mmol/ L 3.5-5. 2 Not Available [facility] ([facility]) [address] [place] [address], [address], 10/20/2017 07:07:16 10/19/1910/20/2017 CMP, serum or plasm a chloride, serum 102 mmol/ L 96-106 Not Available [facility] ([facility]) [address] [place] [address], [address], 10/20/2017 07:07:16 10/19/1910/20/2017 CMP, serum or plasm a carbon dioxide, total 26 mmol/ L 18-29 Not Available [facility] ([facility]) [address] [place] [address], [address], 10/20/2017 07:07:16 10/19/1910/20/2017 CMP, serum or plasm a calcium, serum 10.1 mg/dL 8.7-10 .2 Not Available [facility] ([facility]) [address] [place] [address], [address], 10/20/2017 07:07:16 10/19/1910/20/2017 CMP, serum or plasm a protein, total, serum 7.4 g/dL 6.0-8. 5 Not Available [facility] ([facility]) [address] [place] [address], [address], 10/20/2017 07:07:16 10/19/1910/20/2017 CMP, serum or plasm a albumin, serum 4.3 g/dL 3.5-5. 5 Not Available [facility] ([place] [facility]) [address] [facility] [place], [address], 10/20/2017 07:07:16 10/19/19 18 10/20/2017 CMP, serum or plasm a globulin, total 3.1 g/dL 1.5-4. 5 Not Available [facility] ([facility]) [address] [facility] [place], [address], 10/20/2017 07:07:16 10/19/19 18 10/20/2017 CMP, serum or plasm a A/G ratio 1.4 1.2-2. 2 Not Available [facility] ([facility]) [address] [facility] [place], [address], 10/20/2017 07:07:16 10/19/1910/20/2017 CMP, serum or plasm a bilirubin, total 0.5 mg/dL 0.0-1. 2 Not Available [facility] ([facility]) [address] [facility] [place], [address], 10/20/2017 07:07:16 10/19/1910/20/2017 CMP, serum or plasm a alkaline phosphatase, S 64 IU/L 39-117 Not Available [facility] ([facility]) [address] [facility] [place], [address], 10/20/2017 07:07:16 10/19/1910/20/2017 CMP, serum or plasm a AST (SGOT) 29 IU/L 0-40 Not Available [facility] ([facility]) [address] [facility] [place], [address], 10/20/2017 07:07:16 10/19/1910/20/2017 CMP, serum or plasm a ALT (SGPT) 32 IU/L 0-44 Not Available [facility] ([facility]) [address] [facility] [place], [address], 10/20/2017 07:07:16 10/19/1910/20/2017 lipid panel , serum cholesterol, total 206 mg/dL 100-19 9 above high normal Not Available [facility] ([facility]) [address] [facility], [place], [address], 10/20/2017 07:07:17 10/19/19 18 10/20/2017 lipid panel , serum triglyceride s 155 mg/dL 0-149 above high normal Not Available [facility] ([facility]) [address] [facility], [place], [address], 10/20/2017 07:07:17 10/19/19 18 10/20/2017 lipid panel , serum HDL cholesterol 30 mg/dL >39 below low normal Not Available [facility] ([facility]) [address] [facility], [place], [address], 10/20/2017 07:07:17 10/19/19 18 10/20/2017 lipid panel , serum VLDL cholesterol ken 31 mg/dL 5-40 Not Available [facility] ([facility]) [address] [facility], [place], [address], 10/20/2017 07:07:17 10/19/19 18 10/20/2017 lipid panel , serum LDL cholesterol calc 145 mg/dL 0-99 above high normal Not Available [facility] ([facility]) [address] [facility], [place], [address], 10/20/2017 07:07:17 10/19/19 18 10/20/2017 lipid panel , serum comment: ETCHER HAND Not Available [facility] ([facility]) [address] [facility], [place], [address], 10/20/2017 07:07:17 10/19/19 18 10/20/2017 lipid panel , serum LDL/HDL ratio 4.8 ratio _unit s 0.0-3. 6 above high normal LDL/H DL Ratio Men Women 1/2 Avg.R isk 1.0 1.5 Avg.R isk 3.6 3.2 2X Avg.R isk 6.2 5.0 3X Avg.R isk 8.0 6.1 Not Available [facility] ([facility]) [address] [place], [address], 10/20/2017 07:07:17 10/19/19 18 10/20/2017 HbA1c (hemo globi n A1c), blood hemoglobin A1C 5.5 % 4.8-5. 6 Pre-d iabet es: 5.7 - 6.4 Diabe bin: >6.4 Glyce wilfred contr ol for adult s with diabe bin: <7.0 Not Available [facility] ([facility]) [address] [place], [address], 10/20/2017 07:07:17 12/16/19 18 12/16/2017 CMP, serum or plasm a glucose, serum 93 mg/dL 65-99 Not Available [facility] ([facility]) [address] [place], [address], 12/16/2017 06:17:20 12/16/19 18 12/16/2017 CMP, serum or plasm a BUN 5 mg/dL 6-24 below low normal Not Available [facility] ([facility]) [address] [place], [address], 12/16/2017 06:17:20 12/16/19 18 12/16/2017 CMP, serum or plasm a creatinine, serum 0.91 mg/dL 0.76-1 .27 Not Available [facility] ([facility]) [address] [place], [address], 12/16/2017 06:17:20 12/16/19 18 12/16/2017 CMP, serum or plasm a eGFR if nonafricn AM 93 mL/mi n/1.7 3 >59 Not Available [facility] ([facility]) [address] [place], [address], 12/16/2017 06:17:20 12/16/19 18 12/16/2017 CMP, serum or plasm a eGFR if africn AM 107 mL/mi n/1.7 3 >59 Not Available [facility] ([facility]) [address] [facility] [place], [address], 12/16/2017 06:17:20 12/16/19 18 12/16/2017 CMP, serum or plasm a BUN/creatini ne ratio 5 9-20 below low normal Not Available [facility] ([facility]) [address] [facility] [place], [address], 12/16/2017 06:17:20 12/16/19 18 12/16/2017 CMP, serum or plasm a sodium, serum 143 mmol/ L 134-14 4 Not Available [facility] ([facility]) [address] [facility] [place], [address], 12/16/2017 06:17:20 12/16/19 18 12/16/2017 CMP, serum or plasm a potassium, serum 4.4 mmol/ L 3.5-5. 2 Not Available [facility] ([facility]) [address] [facility] [place], [address], 12/16/2017 06:17:20 12/16/19 18 12/16/2017 CMP, serum or plasm a chloride, serum 103 mmol/ L 96-106 Not Available [facility] ([facility]) [address] [facility] [place], [address], 12/16/2017 06:17:20 12/16/19 18 12/16/2017 CMP, serum or plasm a carbon dioxide, total 24 mmol/ L 18-29 Not Available [facility] ([facility]) [address] [facility] [place], [address], 12/16/2017 06:17:20 12/16/19 18 12/16/2017 CMP, serum or plasm a calcium, serum 9.8 mg/dL 8.7-10 .2 Not Available [facility] ([facility]) [address] [place], [address], 12/16/2017 06:17:20 12/16/19 18 12/16/2017 CMP, serum or plasm a protein, total, serum 7.1 g/dL 6.0-8. 5 Not Available [facility] ([facility]) [address] [facility] [place], [address], 12/16/2017 06:17:20 12/16/19 18 12/16/2017 CMP, serum or plasm a albumin, serum 3.9 g/dL 3.5-5. 5 Not Available [facility] ([facility]) [address] [facility] [place], [address], 12/16/2017 06:17:20 12/16/19 18 12/16/2017 CMP, serum or plasm a globulin, total 3.2 g/dL 1.5-4. 5 Not Available [facility] ([facility]) [address] [facility] [place], [address], 12/16/2017 06:17:20 12/16/19 18 12/16/2017 CMP, serum or plasm a A/G ratio 1.2 1.2-2. 2 Not Available [facility] ([facility]) [address] [facility] [place], [address], 12/16/2017 06:17:20 12/16/19 18 12/16/2017 CMP, serum or plasm a bilirubin, total 0.5 mg/dL 0.0-1. 2 Not Available [facility] ([facility]) [address] [place], [address], 12/16/2017 06:17:20 12/16/19 18 12/16/2017 CMP, serum or plasm a alkaline phosphatase, S 75 IU/L 39-117 Not Available [facility] ([facility]) [address] [place], [address], 12/16/2017 06:17:20 12/16/19 18 12/16/2017 CMP, serum or plasm a AST (SGOT) 102 IU/L 0-40 above high normal Not Available [facility] ([facility]) [address] [place], [address], 12/16/2017 06:17:20 12/16/19 18 12/16/2017 CMP, serum or plasm a ALT (SGPT) 82 IU/L 0-44 above high normal Not Available [facility] ([facility]) [address] [place], [address], 12/16/2017 06:17:20 12/16/19 18 12/16/2017 CBC w/ auto diff WBC 5.1 x10e3 /uL 3.4-10 .8 Not Available [facility] ([facility]) [address] [facility] [place], [address], 12/16/2017 06:17:20 12/16/19 18 12/16/2017 CBC w/ auto diff RBC 4.31 x10e6 /uL 4.14-5 .80 Not Available [facility] ([facility]) [address] [facility] [place], [address], 12/16/2017 06:17:20 12/16/19 18 12/16/2017 CBC w/ auto diff hemoglobin 14.3 g/dL 13.0-1 7.7 Not Available [facility] ([facility]) [address] [facility] [place], [address], 12/16/2017 06:17:20 12/16/19 18 12/16/2017 CBC w/ auto diff hematocrit 42.4 % 37.5-5 1.0 Not Available [facility] ([facility]) [address] [facility] [place], [address], 12/16/2017 06:17:20 12/16/19 18 12/16/2017 CBC w/ auto diff MCV 98 fL 79-97 above high normal Not Available [facility] ([facility]) [address] [facility] [place], [address], 12/16/2017 06:17:20 12/16/19 18 12/16/2017 CBC w/ auto diff MCH 33.2 pg 26.6-3 3.0 above high normal Not Available [facility] ([facility]) [address] [facility] [address], [place], [address], 12/16/2017 06:17:20 12/16/19 18 12/16/2017 CBC w/ auto diff MCHC 33.7 g/dL 31.5-3 5.7 Not Available [facility] ([facility]) [address] [facility] [address], [place], [address], 12/16/2017 06:17:20 12/16/19 18 12/16/2017 CBC w/ auto diff RDW 13.4 % 12.3-1 5.4 Not Available [facility] ([facility]) [address] [facility] [address], [place], [address], 12/16/2017 06:17:20 12/16/19 18 12/16/2017 CBC w/ auto diff platelets 174 x10e3 /uL 150-37 9 Not Available [facility] ([facility]) [address] [facility] [address], [place], [address], 12/16/2017 06:17:20 12/16/19 18 12/16/2017 CBC w/ auto diff neutrophils 41 % not estab. Not Available [facility] ([facility]) [address] [facility], [place], [address], 12/16/2017 06:17:20 12/16/19 18 12/16/2017 CBC w/ auto diff lymphs 48 % not estab. Not Available [facility] ([facility]) [address] [facility] [address], [place], [address], 12/16/2017 06:17:20 12/16/19 18 12/16/2017 CBC w/ auto diff monocytes 9 % not estab. Not Available [facility] ([facility]) [address] [facility], [place], [address], 12/16/2017 06:17:20 12/16/19 18 12/16/2017 CBC w/ auto diff eos 2 % not estab. Not Available [facility] ([facility]) [address] [place], [address], 12/16/2017 06:17:20 12/16/19 18 12/16/2017 CBC w/ auto diff basos 0 % not estab. Not Available [facility] ([facility]) [address] [place], [address], 12/16/2017 06:17:20 12/16/19 18 12/16/2017 CBC w/ auto diff immature cells ETCHER HAND Not Available [facility] ([facility]) [address] [place], [address], 12/16/2017 06:17:20 12/16/19 18 12/16/2017 CBC w/ auto diff neutrophils (absolute) 2.1 x10e3 /uL 1.4-7. 0 Not Available [facility] ([facility]) [address] [place], [address], 12/16/2017 06:17:20 12/16/19 18 12/16/2017 CBC w/ auto diff lymphs (absolute) 2.4 x10e3 /uL 0.7-3. 1 Not Available [facility] ([facility]) [address] [place], [address], 12/16/2017 06:17:20 12/16/19 18 12/16/2017 CBC w/ auto diff monocytes(ab solute) 0.5 x10e3 /uL 0.1-0. 9 Not Available [facility] ([facility]) [address] [place], [address], 12/16/2017 06:17:20 12/16/19 18 12/16/2017 CBC w/ auto diff eos (absolute) 0.1 x10e3 /uL 0.0-0. 4 Not Available [facility] ([facility]) [address] [place], [address], 12/16/2017 06:17:20 12/16/19 18 12/16/2017 CBC w/ auto diff baso (absolute) 0.0 x10e3 /uL 0.0-0. 2 Not Available [facility] ([facility]) [address] [facility], [place], [address], 12/16/2017 06:17:20 12/16/19 18 12/16/2017 CBC w/ auto diff immature granulocytes 0 % not estab. Not Available [facility] ([facility]) [address] [facility], [place], [address], 12/16/2017 06:17:20 12/16/19 18 12/16/2017 CBC w/ auto diff immature grans (abs) 0.0 x10e3 /uL 0.0-0. 1 Not Available [facility] ([facility]) [address] [facility], [place], [address], 12/16/2017 06:17:20 12/16/19 18 12/16/2017 CBC w/ auto diff NRBC ETCHER HAND Not Available [facility] ([facility]) [address] [facility] [place], [address], 12/16/2017 06:17:20 12/16/19 18 12/16/2017 CBC w/ auto diff hematology comments: ETCHER HAND Not Available [facility] ([facility]) [address] [facility], [place], [address], 12/16/2017 06:17:20 12/16/19 18 12/16/2017 lipid panel , serum cholesterol, total 179 mg/dL 100-19 9 Not Available [facility] ([facility]) [address] [facility] [place], [address], 12/16/2017 06:17:21 12/16/19 18 12/16/2017 lipid panel , serum triglyceride s 215 mg/dL 0-149 above high normal Not Available [facility] ([facility]) [address] [facility], [place], [address], 12/16/2017 06:17:21 12/16/19 18 12/16/2017 lipid panel , serum HDL cholesterol 21 mg/dL >39 below low normal Not Available [facility] ([facility]) [address] [place], [address], 12/16/2017 06:17:21 12/16/19 18 12/16/2017 lipid panel , serum VLDL cholesterol ken 43 mg/dL 5-40 above high normal Not Available [facility] ([facility]) [address] [place], [address], 12/16/2017 06:17:21 12/16/19 18 12/16/2017 lipid panel , serum LDL cholesterol calc 115 mg/dL 0-99 above high normal Not Available [facility] ([facility]) [address] [facility] [place], [address], 12/16/2017 06:17:21 12/16/19 18 12/16/2017 lipid panel , serum comment: ETCHER HAND Not Available [facility] ([facility]) [address] [facility] [place], [address], 12/16/2017 06:17:21 12/16/19 18 12/16/2017 lipid panel , serum LDL/HDL ratio 5.5 ratio _unit s 0.0-3. 6 above high normal LDL/H DL Ratio Men Women 1/2 Avg.R isk 1.0 1.5 Avg.R isk 3.6 3.2 2X Avg.R isk 6.2 5.0 3X Avg.R isk 8.0 6.1 Not Available [facility] ([facility]) [address] [facility] [place], [address], 12/16/2017 06:17:21 03/25/20 24 03/27/2024 DEJA BY IFA RFX TITER /ANTONY ARNOLD DEJA by ifa rfx titer/patter n NEGATI VE Negat jannette <1:80 Borde rline 1:80 Posit jannette >1:80 ICAP nomen lupetu re: AC-0 For more infor sofya mohan about Hep-2 cell patte rns use Juan ttern s.org , the offic destiny abbasi for the Inter natio nal Conse nsus on Antin uclea r Antib alice (DEJA) Patte rns ([facility] ). Not Available [facility] ([facility]) [address] [place], [address], 03/27/2024 15:11:24 03/25/20 24 03/26/2024 LIPID PANEL cholesterol, total 133 mg/dL 100-19 9 Not Available [facility] ([facility]) [address] [place], [address], 03/27/2024 15:11:25 03/25/20 24 03/26/2024 LIPID PANEL triglyceride s 141 mg/dL 0-149 Not Available [facility] ([facility]) [address] [place], [address], 03/27/2024 15:11:25 03/25/20 24 03/26/2024 LIPID PANEL HDL cholesterol 34 mg/dL >39 below low normal Not Available [facility] ([facility]) [address] [place], [address], 03/27/2024 15:11:25 03/25/20 24 03/26/2024 LIPID PANEL VLDL cholesterol ken 25 mg/dL 5-40 Not Available [facility] ([facility]) [address] [place], [address], 03/27/2024 15:11:25 03/25/20 24 03/26/2024 LIPID PANEL LDL chol calc ([facility]) 74 mg/dL 0-99 Not Available [facility] ([facility]) [address] [place], [address], 03/27/2024 15:11:25 03/25/20 24 03/26/2024 COMP. METAB OLIC PANEL (14) glucose 90 mg/dL 70-99 Not Available [facility] ([facility]) [address] [facility] [place], [address], 03/27/2024 15:11:26 03/25/20 24 03/26/2024 COMP. METAB OLIC PANEL (14) BUN 9 mg/dL 8-27 Not Available [facility] ([facility]) [address] [facility] [place], [address], 03/27/2024 15:11:26 03/25/20 24 03/26/2024 COMP. METAB OLIC PANEL (14) creatinine 0.91 mg/dL 0.76-1 .27 Not Available [facility] ([facility]) [address] [facility] [place], [address], 03/27/2024 15:11:26 03/25/20 24 03/26/2024 COMP. METAB OLIC PANEL (14) eGFR 94 mL/mi n/1.7 3 >59 Not Available [facility] ([facility]) [address] [facility] [place], [address], 03/27/2024 15:11:26 03/25/20 24 03/26/2024 COMP. METAB OLIC PANEL (14) BUN/creatini ne ratio 10 10-24 Not Available [facility] ([facility]) [address] [place], [address], 03/27/2024 15:11:26 03/25/20 24 03/26/2024 COMP. METAB OLIC PANEL (14) sodium 140 mmol/ L 134-14 4 Not Available [facility] ([facility]) [address] [place], [address], 03/27/2024 15:11:26 03/25/20 24 03/26/2024 COMP. METAB OLIC PANEL (14) potassium 4.5 mmol/ L 3.5-5. 2 Not Available [facility] ([facility]) [address] [place], [address], 03/27/2024 15:11:26 03/25/20 24 03/26/2024 COMP. METAB OLIC PANEL (14) chloride 103 mmol/ L 96-106 Not Available [facility] ([facility]) [address], [place], [address], 03/27/2024 15:11:26 03/25/20 24 03/26/2024 COMP. METAB OLIC PANEL (14) carbon dioxide, total 23 mmol/ L 20-29 Not Available [facility] ([facility]) [address], [place], [address], 03/27/2024 15:11:26 03/25/20 24 03/26/2024 COMP. METAB OLIC PANEL (14) calcium 9.1 mg/dL 8.6-10 .2 Not Available [facility] ([facility]) [address], [place], [address], 03/27/2024 15:11:26 03/25/20 24 03/26/2024 COMP. METAB OLIC PANEL (14) protein, total 6.7 g/dL 6.0-8. 5 Not Available [facility] ([facility]) [address], [place], [address], 03/27/2024 15:11:26 03/25/20 24 03/26/2024 COMP. METAB OLIC PANEL (14) albumin 4.1 g/dL 3.9-4. 9 Not Available [facility] ([facility]) [address] [place], [address], 03/27/2024 15:11:26 03/25/20 24 03/26/2024 COMP. METAB OLIC PANEL (14) globulin, total 2.6 g/dL 1.5-4. 5 Not Available [facility] ([facility]) [address] [place], [address], 03/27/2024 15:11:26 03/25/20 24 03/26/2024 COMP. METAB OLIC PANEL (14) A/G ratio 1.6 Not Available [facility] ([facility]) [address] [facility], [place], [address], 03/27/2024 15:11:26 03/25/20 24 03/26/2024 COMP. METAB OLIC PANEL (14) bilirubin, total 0.3 mg/dL 0.0-1. 2 Not Available [facility] ([facility]) [address] [facility], [place], [address], 03/27/2024 15:11:26 03/25/20 24 03/26/2024 COMP. METAB OLIC PANEL (14) alkaline phosphatase 64 IU/L 44-121 Not Available [facility] ([facility]) [address] [facility], [place], [address], 03/27/2024 15:11:26 03/25/20 24 03/26/2024 COMP. METAB OLIC PANEL (14) AST (SGOT) 18 IU/L 0-40 Not Available [facility] ([facility]) [address] [facility], [place], [address], 03/27/2024 15:11:26 03/25/20 24 03/26/2024 COMP. METAB OLIC PANEL (14) ALT (SGPT) 10 IU/L 0-44 Not Available [facility] ([facility]) [address] [facility], [place], [address], 03/27/2024 15:11:26 03/25/20 24 03/26/2024 CBC WITH DIFFE RENTI AL/PL ATELE T WBC 5.7 x10e3 /uL 3.4-10 .8 Not Available [facility] ([facility]) [address] [facility], [place], [address], 03/27/2024 15:11:28 03/25/20 24 03/26/2024 CBC WITH DIFFE RENTI AL/PL ATELE T RBC 4.12 x10e6 /uL 4.14-5 .80 below low normal Not Available [facility] ([facility]) [address] [place], [address], 03/27/2024 15:11:28 03/25/20 24 03/26/2024 CBC WITH DIFFE RENTI AL/PL ATELE T hemoglobin 13.2 g/dL 13.0-1 7.7 Not Available [facility] ([facility]) [address] [place], [address], 03/27/2024 15:11:28 03/25/20 24 03/26/2024 CBC WITH DIFFE RENTI AL/PL ATELE T hematocrit 40.4 % 37.5-5 1.0 Not Available [facility] ([facility]) [address] [place], [address], 03/27/2024 15:11:28 03/25/20 24 03/26/2024 CBC WITH DIFFE RENTI AL/PL ATELE T MCV 98 fL 79-97 above high normal Not Available [facility] ([facility]) [address] [place], [address], 03/27/2024 15:11:28 03/25/20 24 03/26/2024 CBC WITH DIFFE RENTI AL/PL ATELE T MCH 32.0 pg 26.6-3 3.0 Not Available [facility] ([facility]) [address] [place], [address], 03/27/2024 15:11:28 03/25/20 24 03/26/2024 CBC WITH DIFFE RENTI AL/PL ATELE T MCHC 32.7 g/dL 31.5-3 5.7 Not Available [facility] ([facility]) [address] [place], [address], 03/27/2024 15:11:28 03/25/20 24 03/26/2024 CBC WITH DIFFE RENTI AL/PL ATELE T RDW 12.2 % 11.6-1 5.4 Not Available [facility] ([facility]) [address] [facility], [place], [address], 03/27/2024 15:11:28 03/25/20 24 03/26/2024 CBC WITH DIFFE RENTI AL/PL ATELE T platelets 179 x10e3 /uL 150-45 0 Not Available [facility] ([facility]) [address] [facility], [place], [address], 03/27/2024 15:11:28 03/25/20 24 03/26/2024 CBC WITH DIFFE RENTI AL/PL ATELE T neutrophils 56 % notest ab. Not Available [facility] ([facility]) [address] [facility], [place], [address], 03/27/2024 15:11:28 03/25/20 24 03/26/2024 CBC WITH DIFFE RENTI AL/PL ATELE T lymphs 35 % notest ab. Not Available [facility] ([facility]) [address] [facility], [place], [address], 03/27/2024 15:11:28 03/25/20 24 03/26/2024 CBC WITH DIFFE RENTI AL/PL ATELE T monocytes 7 % notest ab. Not Available [facility] ([facility]) [address] [facility], [place], [address], 03/27/2024 15:11:28 03/25/20 24 03/26/2024 CBC WITH DIFFE RENTI AL/PL ATELE T eos 2 % notest ab. Not Available [facility] ([facility]) [address] [facility], [place], [address], 03/27/2024 15:11:28 03/25/20 24 03/26/2024 CBC WITH DIFFE RENTI AL/PL ATELE T basos 0 % notest ab. Not Available [facility] ([facility]) [address] [facility], [place], [address], 03/27/2024 15:11:28 03/25/20 24 03/26/2024 CBC WITH DIFFE RENTI AL/PL ATELE T neutrophils (absolute) 3.2 x10e3 /uL 1.4-7. 0 Not Available [facility] ([facility]) [address] [facility], [place], [address], 03/27/2024 15:11:28 03/25/20 24 03/26/2024 CBC WITH DIFFE RENTI AL/PL ATELE T lymphs (absolute) 2.0 x10e3 /uL 0.7-3. 1 Not Available [facility] ([facility]) [address] [facility], [place], [address], 03/27/2024 15:11:28 03/25/20 24 03/26/2024 CBC WITH DIFFE RENTI AL/PL ATELE T monocytes(ab solute) 0.4 x10e3 /uL 0.1-0. 9 Not Available [facility] ([facility]) [address] [facility], [place], [address], 03/27/2024 15:11:28 03/25/20 24 03/26/2024 CBC WITH DIFFE RENTI AL/PL ATELE T eos (absolute) 0.1 x10e3 /uL 0.0-0. 4 Not Available [facility] ([facility]) [address] [facility], [place], [address], 03/27/2024 15:11:28 03/25/20 24 03/26/2024 CBC WITH DIFFE RENTI AL/PL ATELE T baso (absolute) 0.0 x10e3 /uL 0.0-0. 2 Not Available [facility] ([facility]) [address] [place], [address], 03/27/2024 15:11:28 03/25/20 24 03/26/2024 CBC WITH DIFFE RENTI AL/PL ATELE T immature granulocytes 0 % notest ab. Not Available [facility] ([facility]) [address] [facility], [place], [address], 03/27/2024 15:11:28 03/25/20 24 03/26/2024 CBC WITH DIFFE RENTI AL/PL ATELE T immature grans (abs) 0.0 x10e3 /uL 0.0-0. 1 Not Available [facility] ([facility]) [address] [facility], [place], [address], 03/27/2024 15:11:28 03/25/20 24 03/26/2024 SEDIM ENTAT ION RATE- WESTE RGREN sedimentatio n rate-westerg julienne 23 mm/HR 0-30 Not Available [facility] ([facility]) [address] [facility], [place], [address], 03/27/2024 15:11:29 03/25/20 24 03/26/2024 RHEUM ATOID FACTO R (RF) rheumatoid factor (rf) <10.0 Not Available [facility] ([facility]) [address] [place], [address], 03/27/2024 15:11:30 03/25/20 24 03/26/2024 PROST ATE-S [...] kits canno t be used inter barron ealesliey . Resul ts canno t be inter prete d as absol yurok evide nce of the prese nce or absen ce of princess guthrie . Not Available [facility] ([facility]) [address] [facility], [place], [address], 03/27/2024 15:11:31 03/25/20 24 03/26/2024 SJOGR EN'S AB, ANTI- SS-A/ -SS-B sjogren's anti-ss-A <0.2 Not Available [facility] ([facility]) [address] [facility], [place], [address], 03/27/2024 15:11:32 03/25/20 24 03/26/2024 SJOGR EN'S AB, ANTI- SS-A/ -SS-B sjogren's anti-ss-B <0.2 Not Available [facility] ([facility]) [address] [facility], [place], [address], 03/27/2024 15:11:32 03/25/20 24 03/26/2024 ANTI- DSDNA ANTIB ODIES anti-DNA (ds) Ab qn 1 IU/mL 0-9 Negat jannette <5 Equiv ocal 5 - 9 Posit jannette >9 Not Available [facility] ([facility]) [address] [facility], [place], [address], 03/27/2024 15:11:33 12/21/19 18 12/20/2017 cardi ac stres s test No observ ation record ed. [facility] (Imaging) [address] [place], [address], 12/27/2017 16:55:05 02/28/20 18 02/26/2018 CT, head + brain , w/o contr ast No observ ation record ed. [facility] [address] [place], [address], 02/27/2018 11:55:04 02/28/20 18 02/26/2018 CT, cervi ken spine , w/o contr ast No observ ation record ed. [email or web address] Not Available 11:55:04 02/28/20 18 02/26/2018 CT, chest , w/ contr ast No observ ation record ed. [email or web address] (Imaging) [address] [place], [address], 02/27/2018 13:08:45 02/28/20 18 02/26/2018 CT, abdom en + pelvi s, w/ contr ast No observ ation record ed. [email or web address] Not Available 11:55:04 03/15/20 18 02/28/2018 elect erwin gordon am inter preta tion* No observ ation record ed. [facility] [address], [place], [address], 03/15/2018 17:16:58 04/03/20 18 04/03/2018 XR, chest No observ ation record ed. [email or web address] (Imaging) [address] [place], [address], 04/04/2018 11:42:48 04/03/20 18 04/03/2018 XR, chest No observ ation record ed. [address] (Imaging) [address] [place], [address], 04/04/2018 11:42:35 04/04/20 18 04/04/2018 XR, chest , 2 view No observ ation record ed. [facility] (Imaging) [address] [place], [address], 04/04/2018 12:25:58 04/11/20 18 04/11/2018 US, duple x, carot id arter y No observ ation record ed. [facility] [address], [place], [address], 04/12/2018 11:29:30 04/23/20 18 04/12/2018 sleep study , diagn ostic * No observ ation record ed. [facility] [address], [place], [address], 04/23/2018 16:14:29 05/16/20 18 05/03/2018 PFT, compl ete No observ ation record ed. [facility] [address], [place], [address], 05/16/2018 11:47:06 03/26/20 24 xr knee lt [facility]V [facility] [address] [facility] [address] [address] Examin ation: Left knee 2 views Access ion: [id number] Exam date/t kelechi: 3:48 PM Reason [...] ns sugges roxy superi mposed to the clin asst ior aspect of the joint on the [...] reted By: Duc Holland MD, 6:26 PM [facility] [address] [facility], [place], [address], 03/27/2024 09:02:03 03/26/20 24 xr hip lt 2V [facility] [address] [facility] [place] [address] Examin ation: Left hip 2 views Access ion: [id number] Exam date/t kelechi: 3:48 PM Reason [...] ====== === Ordere d By: RAY FLORES [facility] ly Signed By: Duc Holland MD on 6:28 PM Interp reted By: Duc Holland MD, 6:28 PM [email or web address] [facility] [address] [facility], [place], [address], 03/27/2024 09:02:03 03/26/20 24 03/25/2024 XR, knee, 1 or 2 view No observ ation record ed. [facility] [address] [facility], [place], [address], 03/27/2024 09:02:04 03/26/20 24 03/25/2024 XR, hip, unila teral No observ ation record ed. [address], [place], [address], 03/27/2024 09:02:04 05/02/20 24 xr chest Pa or AP 1V [facility] [place] [address] EXAM: AP CHEST CLINIC AL STATEM ENT: [...] By: Lasha Bennett MD, 7:26 AM [email or web address] [facility] [address] [facility], [place], [address], 05/02/2024 18:06:42 05/02/20 24 MRI brain wwo con [facility] [place] [address] EXAMIN ATION: MRI brain with/w ithout contra st. ACCESS ION: [id number] EXAM DATE/T KELECHI: 10:47 AM REASON [...] By: See mckeon MD, 12:06 PM [email or web address] [facility] [address] [facility], [place], [address], 05/02/2024 18:06:43 Result Notes None recorded. Problems Name Problem SNOMED Code Status Onset Date Resolution Date Notes Provider Name and Address Organization Details Recorded Time Acid reflux 081228264 Active 2017 Homero Godoy MD Attn: Accountin g,[address] [place], [address] [facility] 8 16:26:33 Benign prostatic hyperplasia without outflow obstruction 266011778 Active 2023 Ray Flores MD Attn: Sandip jamia,[address] [place], [address], [place] [facility] 4 16:05:58 Chronic obstructive pulmonary disease 36489329 Active 2023 Ray Flores MD Attn: Sandip [address]andon,[address] [place], [address], [place] [facility] 4 16:05:58 Hypercholester olemia 33694878 Active 2023 Ray Flores MD Attn: Sandip [address]andon,[address] [place], [address], [place] [facility] 4 16:05:59 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 Procedures Surgical History Date Name Laterality Status Provider Name and Address Organization Details Recorded Time Heart Surgery completed Tata Singh MA [place] [facility] 03/25/2024 16:37:00 Imaging Results None recorded. Procedure Notes None recorded. Medical Equipment None Reported. Allergies Allergen ID Allergen Name Allergen Category Reaction Reaction Severity Criticality Documentation Date Start Date Code Code System Note Provider Name and Address Organization Details Recorded Time 499652 morphine medicatio n Not available Not available Not available 09/14/2017 7052 RxNorm Maxi Chávez MA null, [place] - [facility] 7 11:24:10 Medications Name Sig Start Date Stop Date [...] blood by Pulse oximetry Heart rate Systolic And Diastolic Provider Name and Address Organization Details Last Updated DateTime 8 179.71 cm 42.4 kg/m2 940666. 33 g 98.1 [degF] 97 % 97 % 69 /min 114/76 mm[Hg] Maxi Chávez MA [facility] 8 15:41:27 Date Recorded Body height Body mass index (BMI) Body weight Body temperature Oxygen saturation Oxygen saturation in Arterial blood by Pulse oximetry Heart rate Systolic And Diastolic Provider Name and Address Organization Details Last Updated DateTime 8 179.71 cm 42.4 kg/m2 954856. 9 g 97.9 [degF] 98 % 98 % 64 /min 110/82 mm[Hg] Maxi Chávez MA [facility] 8 11:10:53 Date Recorded Body weight Body mass index (BMI) Body height Oxygen saturation Oxygen saturation in Arterial blood by Pulse oximetry Heart rate Body temperature Systolic And Diastolic Provider Name and Address Organization Details Last Updated DateTime 4 902744. 86 g 39.3 kg/m2 179.71 cm 98 % 98 % 60 /min 98.1 [degF] 116/70 mm[Hg] Tata Singh MA [facility] 4 15:38:19 Date Recorded Body height Body mass index (BMI) Body weight Body temperature Oxygen saturation Oxygen saturation in Arterial blood by Pulse oximetry Heart rate Systolic And Diastolic Provider Name and Address Organization Details Last Updated DateTime 4 179.71 cm 38.9 kg/m2 789698. 09 g 98.1 [degF] 96 % 96 % 68 /min 120/70 mm[Hg] Tata Singh MA [facility] 4 10:37:20 Date Recorded Body height Body mass index (BMI) Body weight Body temperature Oxygen saturation Oxygen saturation in Arterial blood by Pulse oximetry Heart rate Systolic And Diastolic Provider Name and Address Organization Details Last Updated DateTime 7 179.71 cm 43.8 kg/m2 779376. 1 g 97.8 [degF] 96 % 96 % 63 /min 118/86 mm[Hg] Maxi Chávez MA [facility] 7 11:41:03 Social History Question Answer Notes LastModified by Replise Details LastModified Time Tobacco Smoking Status Never Smoker Maxi Chávez MA null, [facility] 09/14/2017 11:34:00 What Was The Date Of Your Most Recent Tobacco Screening? 04/24/2024 [email or web address] Information not available 04/24/2024 Sex: Unknown Functional Status Question Answer Note LastModified by Replise Details LastModified Time What is your level of alcohol consumption? None Former Drinker [email or web address] Information not available 09/14/2017 Mental Status None recorded. Family History Relationship Description Onset Age of this Age Resolved Age Notes LastModified by Organization Details LastModified Time Mother Heart disease [email or web address] Not available 09/14 11:33:54 Medical History Condition Response Coronary Artery Disease N Other N High Blood Pressure N Atrial Fibrillation N Thyroid Problems N Kidney or Bladder Problems N GI Problems N Depression N COPD Y Blood Clots N Skin Problems N Eating Disorder N Anemia N Heart Attack (NC) N Anxiety Disorder N Diabetes Y Muscle, Joint, or Bone Problems N Arthritis N Seizures/Epilepsy N Acid Reflux (GERD) N Cancer N Stroke N Asthma N Allergies N ADHD N Substance Abuse N High Cholesterol N Hepatitis N Liver Disease N Schizophrenia N Headaches N Heart Failure N Osteoporosis N Past Encounters Encounter ID Performer Location Encounter Start Date Encounter Closed Date Diagnosis/Indication Diagnosis SNOMED-CT Code Diagnosis ICD10 Code Diagnosis IMO Codes Diagnosis Note [id number] Homero Godoy MD [facility] ([facility]ult Med) [address] [place] [address] 09/14/2017 11:04:09 09/14/2017 12:34:02 Morbid obesity 571501907 E66.01 Diet, exercise and lose weight. Hyperglycemia 96817766 R 73.9 Diabetic diet, exercise and los weight. Shoulder joint pain 2679 76380 M25.519 Under the care of the pain management . Chronic neck pain 750767 3890 107 M54.2 Under the care of management . Dyslipidemia 507576315 E 78.5 Low saturated fat diet. exercise , keep the weight down. Metabolic syndrome X 237 053800 E88.81 History of elevated blood sugar, dyslipidem ia and morbid obesity. recommend exercise , diet program and lose weight. [id number] Homero Godoy MD [facility] ([facility]) [address] [place] [address] 12/06/2017 14:12:29 12/06/2017 16:30:43 Non-allergic anaphylaxis 57360509 T78.2XXA Had bad reaction at his dentis office. Recovered, and procedure was terminated .Will order the cardiac work up. Morbid obesity 797599924 E66.01 Diet, exercise and lose weight. Hypertensive disorder 38 514660 I10 Computer's error. Hyperlipidemia 71575372 E78.5 computer's error. Acid reflux 450067508 K2 1.9 Computer's error. Chronic low back pain 27 6712346 M54.5 Computer's error. Adult heal th examination 354731141 Z00.01 Obesity, which has been adressed in the above. [id number] Ray Flores MD [facility] [address] [place] [address] [address] [place] [address] 03/25/2024 15:21:00 03/26/2024 10:04:10 Obesity 090936695 E66.8 condition chronic and not at goal start low fate diet. Osteoarthritis of hip 23 4326756 M16.9 left hip condition chronic and not at goal refer to dr marino kenalog 80 mg, medrol dose pack order xray left hip Osteoarthr itis of knee 063662686 M17.9 condition chronic and not at goal refer to dr jordan order xray left knee Lumbago-sc iatica due to displacement of lumbar intervertebral disc 95988179 M51.17 conditoin chronic with left L4 radiculopa thy order mri l/s spine. order connective tissue panel Hypercholesterolemia 136 39137 E78.00 conditon chroinc and at goal continue the pravastati n and zetia order lipid panel, cmp Chronic ob structive pulmonary disease 25787787 J44.9 condition chronic and at goal continue the breo and follow [facility] pulmonary order cbc Benign pro static hyperplasia without outflow obstruction 699253497 N40.0 conditon chronic and at goal continue the cialis order psa Screening for malignant neoplasm of colon 557235492 Z12.11 dr eller [id number] Ray Flores MD [facility] [address] [place] [address] 04/24/2024 10:31:59 04/25/2024 10:08:58 Lumbago-sciatica due to displacement of lumbar intervertebral disc 04916728 M51.17 conditoin chronic with left L4 radiculopa thy continue the nsaids. kenalog 80 mg, medrol dose pack Hypercholesterolemia 136 89620 E78.00 conditon chroinc and at goal continue the pravastati n and zetia Benign pro static hyperplasia without outflow obstruction 906445442 N40.0 conditon chronic and at goal continue the cialis Chronic ob structive pulmonary disease 71245109 J44.9 condition chronic and at goal continue the breo and follow [facility] pulmonary Obesity 987294774 E66.8 condition chronic and not at goal start low fat diet. Osteoarthritis of hip 23 3627835 M16.9 left hip condition chronic and not at goal refer to dr marino Osteoarthr itis of knee 797418940 M17.9 condition chronic and not at goal refer to dr jordan Health Concerns Section Related Observation LastModified by Organization Detai ls LastModified Time None Recorded Concern Status LastModified by Organization Details LastModified Time None Recorded Advance Directives Directive None Recorded Payers Insurance Date Sequence Insurance Name Policy Number Policy Ortiz Covered Member ID Ortiz Member ID Guarantor Name 03/25/2024 1 [place] Steve Joy [id number] Steve Joy 07/23/2024 1 [employer] (MEDICARE REPLACEMENT/AD VANTAGE - HMO) [id number] Steve Joy [id number] Steve Joy 03/25/2024 1 [facility] - DOS PRIOR TO 2021 (MEDICAID REPLACEMENT - HMO) Steve Joy [id number] Steve Joy Notes Date Note Type Note Provider Name and Address Organization Details Recorded Time 09/14/2017 text/html ROS as noted in the HPI First time, on metformin at night for boardline elevated blood sugar, 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 Girl friend MS. Joy Ricci is here. History of chronic both shoulders pain. Disabled from deteriorating neck and shoulders condition, no surgeon would proceed the intervention according to his statement. Homero Godoy MD Attn: Accounting, [address] [place], [address], [facility] 09/20/2017 12:42:31 12/06/2017 text/html ROS as noted in the HPI He went to see a dentist, lulu clammy: while pulling teeth on the ., allergic morphine. not a smoker nor a drinker. On no medication for months after his doctor left the area. Homero Godoy MD Attn: Accounting, [address] [place], [address], [facility] 12/06/2017 16:33:16 03/25/2024 text/html presents to the office for initial evaluation states that he has been having left knee, thigh nad groin pain for the past 6 months. achy feeling. has gerd has chroicn lumbar back pain elevated chol and copd - sees pulmonary has ed lumbar back pain chronic has cad Ray Flores MD Attn: Accounting, [address] [place], [address], [facility] 03/25/2024 20:01:23 04/24/2024 text/html states that he continues to have the lumbar back pain with the hip and knee pian the gerd is unde contrl adn the bph is under contorl the copd is under control the chol is under control has been watching his diet. colo is utd. Ray Flores MD Attn: Accounting, [address] [place], [address], [facility] 04/24/2024 18:22:40
== END 2025-07-30 10:27 | disposition home or self-care (01) ==
LOC: ANHLAB 10:27
PROVIDERS: PCP Student in an Organized Health Care Education/Training Program; Visit Provider Orthopaedic Surgery
DX: R53.83 Other fatigue (principal); I10 Essential (primary) hypertension; E78.5 Hyperlipidemia, unspecified; Z95.0 Presence of cardiac pacemaker
CPT/HCPCS: 36415; 80048; 81003; 85025; 93005

== ENCOUNTER 2025-08-14 09:07 | Outpatient (CLI) | payer MEDICARE, SELFPAY ==
--- OUTSIDE RECORDS SUMMARY | 2025-08-14 09:40 | XMS_ITS | Patient Health Record ---
Author Organization [facility] Address [address] [place] [address] Care Team Providers Care Reed Fixer Name Role Phone Renan Lopez Primary Care Provider [phone] Reason For Referral No Information Immunizations Vaccine Route Administration Date Status Comme nts COVID-19 Moderna 1ST IM Intramuscular 01/21/2021 Administe red COVID-19 Moderna 2nd IM Intramuscular 02/18/2021 Administe red Plan Of Treatment No Information
[2025-08-14 10:49] LABS: INR 1.0; Prothrombin Time 12.9 Seconds (11.1-14.7)
[2025-08-14 10:50] LABS: Partial Thromboplastin Time 30.0 Seconds (22.3-36.8)
[2025-08-14 10:58] LABS: Hemoglobin A1C 5.4 % (<5.7)
[2025-08-14 11:00] LABS: Albumin Level 3.9 g/dL (3.5-5.1)
[2025-08-14 11:53] LABS: MRSA (PCR) NOT DETECTED (NOT DETECTE)
== END 2025-08-14 09:08 | disposition home or self-care (01) ==
LOC: ANHSURGERY 09:10
PROVIDERS: PCP Student in an Organized Health Care Education/Training Program; Visit Provider Orthopaedic Surgery
DX: Z01.818 Encounter for other preprocedural examination (principal); M16.12 Unilateral primary osteoarthritis, left hip
CPT/HCPCS: 80307; 82040; 83036; 85610; 85730; 86850; 86900; 86901; 87641